=== PATIENT | male | born 1950 | race Caucasian/White ===

== ENCOUNTER 2022-07-28 17:30 | Emergency (ER) | payer OTHER, SELFPAY ==
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
[2022-07-28 17:35] VITALS: BP 156/82; PULSE 70; RESP 18; TEMP 36.6; O2SAT 100
[2022-07-28 19:39] VITALS: BP 163/91; PULSE 68; RESP 18; O2SAT 99
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
== END 2022-07-28 22:17 | disposition home or self-care (01) ==
PROVIDERS: Emergency Provider Emergency Medicine; PCP Family Medicine
DX: S16.1XXA Strain of muscle, fascia and tendon at neck level, initial encounter (principal); E11.9 Type 2 diabetes mellitus without complications; E78.5 Hyperlipidemia, unspecified; V49.40XA Driver injured in collision with unspecified motor vehicles in traffic accident, initial encounter
CPT/HCPCS: 70450; 72125; 72128; 72131; 99284

== ENCOUNTER 2025-02-10 17:39 | Inpatient (IN) | payer OTHER, SELFPAY ==
--- NOTE | ~2025-02-10 | XR_ITS ---
EXAMINATION: XR chest 1V portable DATE: 02/11/2025 01:55 INDICATION: Weakness TECHNIQUE: frontal view of the chest was obtained. COMPARISON: None FINDINGS: Small lung volumes. Small lung volumes. No focal airspace opacities, pulmonary edema, pleural effusio n or pneumothorax. Opacities projecting over the chest are related to a reported following brace for reported spinal fractures. Heart size is normal. IMPRESSION: 1. Small lung volumes. Reviewed, dictated and finalized at location A. IMPRESSION: 1. Small lung volumes.
--- OUTSIDE RECORDS SUMMARY | 2025-02-10 17:43 | XMS_ITS | Referral Summary ---
Author Organization [facility] [address] [facility] Address [address] [place] [address] Care Team Providers Care Cover Inspector Name Role Phone Braulio Child MD Primary Care Provider [phone] Alvina Palencia MA Unavailable Encounters Date Type Department Care Team Description 02/07/2025 [facility] Outreach [address] [address] Alvina Palencia MA 02/07/2025 [facility] IP Outreach [address] [address] Alvina Palencia MA 01/26/[address] [address] Mayra Hoyt Unsuccessful Phone Call 1 (Essence dm eye ) 01/17/2025 ACO Quality [address] [address] Renee Mclain 11/30/2024 Telephone [facility] Primary Care at [address] [address] Braulio Child MD from Last 3 Months Allergies No known active allergies Medications glipiZIDE (GLUCOTROL) 5 mg tabletIndication s:type 2 diabetes mellitus TAKE 1 TABLET (5 MG TOTAL) BY MOUTH 2 (TWO) TIMES A DAY BEFORE BREAKFAST AND LUNCH 180 tablet 1 2 Active Additional Information Patient not taking.Reported on 09/27/2024 amLODIPine (NORVASC) 5 mg tablet TAKE 1 TABLET (5 MG TOTAL) BY MOUTH DAILY. 90 tablet 1 2 Active Additional Information Patient not taking.Reported on 09/27/2024 blood-glucose meter (Contour Next EZ Meter) [facility] [place] BLOOD GLUCOSE 3 (THREE) TIMES A DAY. DX: E11.40 INSULIN DEPENDENT CONTOUR NEXT EZ 50 each 11 3 Active Contour Next Test Strips strip USE ONE STRIP IN METER ONCE DAILY DIRECTED 100 strip 1 4 Active metroNIDAZOLE (METROGEL) 0.75 % gel APPLY TWICE DAILY TO ROSACEA 45 g 1 4 Active insulin glargine 100 unit/mL (3 mL) pen for injection Inject 18 Units under the skin nightly 15 mL 1 4 Active simvastatin (ZOCOR) 20 mg tablet Take 1 tablet (20 mg total) by mouth nightly 90 tablet 4 4 09/27/20 25 Active pen needle, diabetic (BD Ultra-Fine Micro Pen Needle) 32 gauge x 1/4 needle USE DIRECTED WITH LANTUS SOLOSTAR PEN, USING ONE DAILY WITH EVENING INJECTION 100 each 1 5 Active metFORMIN (GLUCOPHAGE) 1,000 mg tabletIndication s:Type 2 diabetes mellitus with diabetic neuropathy, without long-term current use of insulin (HCC) TAKE 1 TABLET BY MOUTH TWICE A DAY WITH MEALS 180 tablet 5 Active gabapentin (NEURONTIN) 300 mg capsule TAKE 1 CAPSULE BY MOUTH THREE TIMES A DAY 270 capsule 1 5 Active omeprazole (PriLOSEC) 40 mg capsuleIndicatio ns:Gastroesophag eal reflux disease without esophagitis TAKE 1 CAPSULE BY MOUTH EVERY DAY 90 capsule 1 5 Active acetaminophen (TYLENOL) 325 mg tablet Take 2 tablets (650 mg total) by mouth every 6 (six) hours 5 02/16/20 25 Active lidocaine (LIDODERM) 5 % Place 1 patch on the skin daily 5 Active oxyCODONE (ROXICODONE) 5 mg immediate release tablet Take 1 tablet (5 mg total) by mouth every 6 (six) hours as needed 5 Active senna-docusate (PERICOLACE) 8.6-50 mg Take 1 tablet by mouth daily as needed 5 02/20/20 Active Active Problems Problem Noted Date Diagnosed Date Type 2 diabetes mellitus with hyperlipidemia Assessment & Plan (09/27/2024 10:25 AM MASTER DYER): Resuming statin medication and will follw oresponse. ENcourage healthy food chocies. Prostate cancer screening 09/27/2024 Assessment & Plan (09/27/2024 10:25 AM MASTER DYER): PSA pending. No hematuria, no nocturai. Type 2 diabetes mellitus wit h diabetic neuropathy, without long-term current use of insulin 09/27/2024 Annual physical exam 09/27/2024 Encounter for screening colonoscopy 03/28/2020 Overview (03/28/2020): Added automatically from request for surgery [id number] Chronic midline low back pain without sciatica 0 02/14/2020 Male erectile disorder 01/26/2020 Diabetic polyneuropathy asso ciated with type 2 diabetes mellitus 01/26/2020 Assessment & Plan (09/27/2024 10:24 AM MASTER DYER): NO opne wounds/sores. WIll follow repsonse. Reivewed import of glycmie cocntro cynthia comorbidities. Hyperlipidemia 01/26/2020 Essential hypertension 01/26/2020 Type 2 diabetes mellitus wit h diabetic neuropathy, with long-term current use of insulin 01/26/2020 Assessment & Plan (09/27/2024 10:24 AM MASTER DYER): Uptitration of lantus and will follow response. Reivewd improt of glycemic control. Denies any hypoglycemic episodes. Screening for malignant neoplasm of prostate Gastroesophageal reflux disease without esophagi tis 01/26/2020 Assessment & Plan (09/27/2024 10:24 AM MASTER DYER): Stable on PPI and will montior response. NO dysphagia, no blood int eh stools, no melena. Immunizations Immunization Administration Dates Next Due Influenza, Unspecified 09/27/2024(Deferr ed: Patient Refused),09/28/2023(Deferred: Patient Refused),09/28/2022(Deferred: Patient Refused),12/13/2021(Deferred: Patient Refused),06/28/2021(Deferred: Patient Refused),10/15/2020(Deferred: Patient Refused),06/28/2020(Deferred: Patient Refused),06/28/2020(Deferred: Patient Refused),09/28/2019(Deferred: Patient Refused),06/28/2019(Deferred: Patient Refused),06/28/2018(Deferred: Patient Refused) Pneumococcal Conjugate PCV 13 12/19/2020 Tdap 12/19/2020 Social History Tobacco Use Types Packs/Day Years Used Date Smoking Tobacco: Never Smokeless Tobacco: Never Tobacco Cessation:Counseling Given: No PHQ-2 Answer Date Recorded PHQ-2 Total Score (If total score is 3 or more points, staff should administer the PHQ-9) 0 09/27/2024 Sex and Gender Information Value Date Recorded Sex Assigned at Not on file Legal Sex Male 8:00 PM MASTER DYER Gender Identity Not on file Sexual Orientation Not on file Last Filed Vital Signs Vital Sign Reading Time Taken Comments Blood Pressure 132/74 09/27/2024 10:04 AM MASTER DYER Pulse 78 09/27/2024 10:04 AM MASTER DYER Temperature 36.8 C (98.2 F) 09/27/2024 10:04 AM MASTER DYER Respiratory Rate 17 03/24/2022 8:38 AM CDT Oxygen Saturation 98% 09/27/2024 10:04 AM MASTER DYER Inhaled Oxygen Concentration - - Weight 72.3 kg (159 lb 4.8 oz) 09/27/2024 10:04 AM MASTER DYER Height 182.9 cm (6') 09/27/2024 10:04 AM MASTER DYER Body Mass Index 21.6 09/27/2024 10:04 AM MASTER DYER Plan of Treatment Not on file Procedures Procedure Name Priority Date/Time Associated Diagnosis Comments EGFR Routine 09/27/2024 1:38 PM MASTER DYER Type 2 diabetes mellitus with diabetic neuropathy, without long-term current use of insulin (HCC) HEMOGLOBIN A1C Routine 09/27/2024 1:38 PM MASTER DYER Type 2 diabetes mellitus with diabetic neuropathy, without long-term current use of insulin (HCC) LIPID PANEL Routine 09/27/2024 1:38 PM MASTER DYER Type 2 diabetes mellitus with diabetic neuropathy, without long-term current use of insulin (HCC) ALBUMIN CREATININE RATIO, URINE Routine 09/27/2024 1:38 PM MASTER DYER Type 2 diabetes mellitus with diabetic neuropathy, without long-term current use of insulin (HCC) DIABETIC EYE EXAM Routine 09/05/2024 11: 34 AM MASTER DYER from Last 3 Months or Most Recently Relevant to Health Maintenance Results * (ABNORMAL) eGFR (09/27/2024 1:38 PM MASTER DYER) eGFR 55(L) >=60 mL/min/1. 73 m2 Comment: Interpretive Data Reference Interval Normal >/= 90 mL/min/1.73m2 Mildly decreased* 60 - 89 mL/min/1.73m2 Mildly to moderately decreased 45 - 59 mL/min/1.73m2 Moderately to severely decreased 30 - 44 mL/min/1.73m2 Severely decreased 15 - 29 mL/min/1.73m2 Kidney Failure < 15 mL/min/1.73m2 *Relative to young adult level Estimated glomerular filtration rate is determined by the 2020 CKD-EPI equation recommended by the National Kidney Foundation (A Unifying Approach to GFR Estimation: Recommendations of the NKF-ASK Task Force on Reassessing the Inclusion of Race in Diagnosing Kidney Disease, JASN 202). The CKD-EPI equation should not be used for patients with unstable renal function and has not been validated in children and those over 70. Current interpretive data was last reviewed 2021. Blood 09/27/2024 1:38 PM MASTER DYER 09/27/2024 7:16 PM MASTER DYER us Braulio Child MD LAB BLOOD ORDERABLES Elaina gong Result [facility] [address] Department [place] [address] * (ABNORMAL) Albumin Creatinine Ratio, Urine (09/27/2024 1:38 PM MASTER DYER) Albumin Ur 268.3 mg/L Comment: Interpretive Data No reference range established. Current interpretive data was last revised 2019. Creatinine Ur 127.2 mg/dL [facility] Comment: Interpretive Data No reference range established. Current interpretive data was last revised 2019. Albumin Creatinine Ratio, Ur 211(H) 1 - 29 mg/g [facility] Urine 09/27/2024 1:38 PM MASTER DYER 09/27/2024 7:13 PM MASTER DYER us Braulio Child MD LAB URINE ORDERABLES Elaina gong Result [facility] [address] Department [place] [address] * (ABNORMAL) Lipid panel (09/27/2024 1:38 PM MASTER DYER) Cholesterol 315(H) 30 - 199 mg/dL Comment: Interpretive Data Ages < or = 19 years Acceptable: <170 mg/dL Borderline high: 170-199 mg/dL High: >or= 200 mg/dL Ages > or = 20 years Desirable: <200 mg/dL Borderline high: 200-239 mg/dL High: >or= 240 mg/dL Literature References: 1. Expert Panel on Integrated Guidelines for Cardiovascular Health and Risk Reduction in Children and Adolescents. Pediatrics 2011;128:S213 2. NCEP Expert Panel. Circulation 2004;110:227 Current Interpretive Data was last revised on 2018. Triglycerides 305(H) <=149 mg/dL [facility] Comment: Interpretive Data Ages < or = 9 years Acceptable: <75 mg/dL Borderline high: 75-99 mg/dL High: >or= 100 mg/dL Ages 10 to 20 years Acceptable: <90 mg/dL Borderline high: 90-129 mg/dL High: >or= 130 mg/dL Ages > or = 20 years Desirable: <150 mg/dL Borderline high: 150-199 mg/dL High: 200-499 mg/dL Very high: >or= 499 mg/dL Literature References: 1. Expert Panel on Integrated Guidelines for Cardiovascular Health and Risk Reduction in Children and Adolescents. Pediatrics 2011;128:S213 2. NCEP Expert Panel. Circulation 2004;110:227 Current Interpretive Data was last revised on 2018. HDL 48 >=40 mg/dL [facility] Comment: Interpretive Data Ages < or = 19 years Acceptable: >45 mg/dL Borderline low: 40-45 mg/dL Low: <40 mg/dL Ages > or = 20 years Desirable: >or= 60 mg/dL Low: <40 mg/dL Literature References: 1. Expert Panel on Integrated Guidelines for Cardiovascular Health and Risk Reduction in Children and Adolescents. Pediatrics 2011;128:S213 2. NCEP Expert Panel. Circulation 2004;110:227 Current Interpretive Data was last revised on 2018. LDL, calculated 206(H) <=129 mg/dL [facility] Comment: Interpretive Data Ages < or = 19 years Acceptable: <110 mg/dL Borderline high: 110-129 mg/dL High: >or= 130 mg/dL Ages > or = 20 years Optimal: <100 mg/dL Near optimal: 100-129 mg/dL Borderline high: 130-159 mg/dL High: >160 mg/dL Calculated using the Perry LDL-C estimating equation. This equation was implemented on 2024. Prior to this date LDL-C was estimated using the Friedewald equation. Literature References: 1. Expert Panel on Integrated Guidelines for Cardiovascular Health and Risk Reduction in Children and Adolescents. Pediatrics 2011;128:S213 2. NCEP Expert Panel. Circulation 2004;110:227 3. Perry Hoang et al. [facility] Cardiol. 2019January 26;5(5):540-548. doi: 10.1001/[email or web address].2020.0013 Current Interpretive Data was last revised on 2024. Non-HDL Cholesterol 267 mg/dL [facility] Comment: Interpretive Data Ages < or = 19 years Acceptable: <120 mg/dL Borderline high: 120-144 mg/dL High: >145 mg/dL Ages > or = 20 years When triglycerides are >200 mg/dL, Non-HDL cholesterol is a secondary target of therapy with treatment goals that are 30 mg/dL greater than the LDL cholesterol target. Literature References: 1. Expert Panel on Integrated Guidelines for Cardiovascular Health and Risk Reduction in Children and Adolescents. Pediatrics 2011;128:S213 2. NCEP Expert Panel. Circulation 2004;110:227 Current Interpretive Data was last revised on 2018. Chol/HDL ratio 7 [facility] Blood 09/27/2024 1:38 PM MASTER DYER 09/27/2024 7:13 PM MASTER DYER Braulio Child MD LAB BLOOD ORDERABLES [place] [address] [address] Department [place] [address] * (ABNORMAL) Diabetic Eye Exam (09/05/2024 11:34 AM MASTER DYER) us Historical Provider HEALTH MAINTENANCE Final Result from Last 3 Months or Most Recently Relevant to Health Maintenance Insurance [facility] Care Teams Cover Inspector Relationship Specialty Start Date End Date Braulio Child MD [address] [id number] PCP - General Family Medicine 01/26/20 Alvina Palencia MA [address] [place] [address] [address] [place] [address] O Care Document Control Assistant 02/07/25
--- OUTSIDE RECORDS SUMMARY | 2025-02-10 17:43 | XMS_ITS | Clinical Summary ---
Author Organization [facility] [employer] Address [address] [place] [address] Care Team Providers Care Digging Machine Operator Name Role Phone Brad Sanchez MD Primary Care Provider + Source Comments [facility],non-owned Affiliates and Associated Physician Practices is amultiple site organization consisting of ambulatory clinics and hospital sitesin [place], [place], [place] and [place]. This disclosure is being madepursuant to the Care Everywhere program and may not contain all information available regarding this patient. Last updated 18.[facility] Allergies No known active allergies Medications * Be aware that medications may not be up to date on this document. Alwaysverify current medications with the patient. gabapentin (Neurontin) 300 MG capsule Take 1 (one) capsule by mouth 3 times daily 5 Active blood glucose (KEVIN CONTOUR NEXT TEST) test strip Use 1 (one) strip as directed Use 1 strip in meter once daily as directed. 4 Active insulin glargine (Lantus/Semgle e) 100 units/mL pen Inject 18 (eighteen) Units subcutaneously at bedtime 4 Active metFORMIN (Glucophage) 1000 MG tablet Take 1 (one) tablet by mouth 2 times daily with morning and evening meal 5 Active metroNIDAZOLE (Metrogel) 0.75 % gel Apply to affected area 2 times daily For rosacea. 4 Active omeprazole (PriLOSEC) 40 MG capsule Take 1 (one) capsule by mouth once daily 5 Active simvastatin (Zocor) 20 MG tablet Take 1 (one) tablet by mouth at bedtime 4 025 Active acetaminophen (Tylenol) 325 MG tablet Take 2 (two) tablets by mouth every 6 hours for 10 days Maximum allowable Acetaminophen amount = 4 Grams (4000 mg) / 24 hours. 80 tablet 5 025 Active lidocaine (Lidoderm) 5 % patch Apply 1 (one) patch to skin once daily Apply patch to most painful area and remove after 12 hours. May reapply a new patch 12 hours later. 5 Active polyethylene glycol 3350 (Miralax) 17 g packetIndicati ons:Constipati on Take 17 (seventeen) g by mouth once daily as needed for Constipation Reasons: Constipation 10 packet 5 025 Active senna-docusate (Senokot-S) 8.6-50 MG tablet Take 1 (one) tablet by mouth once daily as needed for Constipation 14 tablet 5 025 Active oxyCODONE, immediate release, (Roxicodone) 5 MG tabletIndicati ons:Trauma,Paty sed stable burst fracture of first lumbar vertebra, initial encounter ([facility]) Take 1 (one) tablet by mouth every 6 hours as needed for Pain 42 tablet 5 Active Active Problems Problem Noted Date Diagnosed Date Closed fracture of multiple ribs of right side 0 02/03/2025 Closed fracture of thoracic vertebral body 02/03 Closed fracture of spinous process of thoracic v ertebra 02/03/2025 Compression fracture of fourth lumbar vertebra 0 02/03/2025 Compression fracture of first lumbar vertebra Trauma 02/03/2025 Fall, initial encounter 02/03/2025 Closed stable burst fracture of first lumbar vertebra, initial encounter 02/03/2025 Compression fracture of T12 vertebra, initial en counter 02/03/2025 Acute low back pain without sciatica, unspecified back pain laterality 02/03/2025 Encounters Date Type Department Care Team Description 02/07/2025 Telephone [facility] Health at Home Scheduling [id number] [place] [address] Latisha Yeh, RN Coordination Of Care 02/06/2025 Travel 02/03/2025 4:24 PM CDT - 02/05/2025 4:00 PM CDT Hospital Encounter [facility] 5S ACUTE [address] [place] [address] Jaswinder Alicea MD Tenquist, Jane E, MD Surgery General Discharge Disposition: Home or Self Care 02/03/2025 Travel from Last 3 Months Social History Tobacco Use Types Packs/Day Years Used Date Smoking Tobacco: Never Smokeless Tobacco: Never Tobacco Cessation:Counseling Given: Not Answered Alcohol Use Standard Drinks/Week Comments Not Currently 0 (1 standard drink = 0.6 oz pur e alcohol) AUDIT-C Answer Date Recorded Q1: How often do you have a drink containing alc ohol? Monthly or less 02/04/2025 Q2: How many drinks containi ng alcohol do you have on a typical day when you are drinking? 1 or 2 02/04/2025 Q3: How often do you have si x or more drinks on one occasion? Never 02/04/2025 Overall Financial Resource Strain (CARDIA) Answe r Date Recorded How hard is it for you to pa y for the very basics like food, housing, medical care, and heating? Not hard at all 02/04/2025 [facility] [place] [facility] - Occupational Stress Questionnaire Answer Date Recorded Do you feel stress - tense, restless, nervous, or anxious, or unable to sleep at night because your mind is troubled all the time - these days? Not at all 02/04/2025 Hunger Vital Sign Answer Date Recorded Within the past 12 months, y ou worried that your food would run out before you got the money to buy more. Never true 02/05/20 25 Within the past 12 months, t he food you bought just didn't last and you didn't have money to get more. Never true 02/04/2025 PRAPARE - Transportation Answer Date Re corded In the past 12 months, has l ack of transportation kept you from medical appointments or from getting medications? No 01/26 In the past 12 months, has l ack of transportation kept you from meetings, work, or from getting things needed for daily living? No 02/04/2025 Housing Stability Vital Sign Answer Claude e Recorded In the last 12 months, was t here a time when you were not able to pay the mortgage or rent on time? No 02/04/2025 In the past 12 months, how m any times have you moved where you were living? 0 02/04/2025 At any time in the past 12 m [facility], were you homeless or living in a residential (including now)? No 02/04/2025 Sex and Gender Information Value Date Recorded Sex Assigned at Not on file Legal Sex Male 4:24 PM CDT Gender Identity Not on file Sexual Orientation Not on file Last Filed Vital Signs Vital Sign Reading Time Taken Comments Blood Pressure 146/74 02/05/2025 8:41 AM CDT Pulse 78 02/05/2025 9:32 AM CDT Temperature 36.8 C (98.2 F) 02/05/2025 8:41 AM CDT Respiratory Rate 18 02/05/2025 9:32 AM CDT Oxygen Saturation 96% 02/05/2025 9:32 AM CDT Inhaled Oxygen Concentration - - Weight 74.8 kg (165 lb) 02/04/2025 3:16 AM CDT Height 182.9 cm (6' 0.01 ) 02/04/2025 3:16 AM CD T Body Mass Index 22.37 02/04/2025 3:16 AM CDT Plan of Treatment Upcoming Encounters Date Type Department Care Team (Late st Contact Info) Description 03/24/2025 9:30 AM CDT Office Visit [facility] [address] [place] [address] Maite Olivraes, GENERAL EDUCATION INSTRUCTOR-POWER TOOL REPAIRER [address] [place] [address] Health Maintenance Due Date Last Done Comments COLOGUARD (AGES 45-75) - COL ON CA SCREENING 1950 COLON MONITORING 1950 COLONOSCOPY - COLON CA SCREENING 1950 CT COLONOGRAPHY - COLON CA SCREENING 1950 Colorectal Cancer Screening 1950 FIT - COLON CA SCREENING 1950 FLEX SIG - COLON CA SCREENING 1950 MEDICARE AWV 12 MONTHS 1950 HEPATITIS C SCREENING 03/24/1968 DTAP/TDAP/TD VACCINES (1 - Tdap) 1969 PNEUMOCOCCAL VACCINE 50+ (1 of 2 - PCV) 1969 ZOSTER VACCINE (1 of 2) 2000 Respiratory Syncytial Virus (RSV) Vaccine Pt: or over 60 yrs (1 - Risk 60-74 years 1-dose series) 2010 COVID-19 VACCINE (1 - 2023-2 5 season) 2024 DEPRESSION SCREENING 09/28/2024 INFLUENZA VACCINE (Season Ended) 2025 HEPATITIS B VACCINE Aged Out No longe r eligible based on patient's age to complete this topic HIB VACCINE Aged Out No longer eligi ble based on patient's age to complete this topic HPV VACCINE Aged Out No longer eligi ble based on patient's age to complete this topic MENINGOCOCCAL (Group B) VACC INE SHARED DECISION-MAKING Aged Out No longer eligibl e based on patient's age to complete this topic MENINGOCOCCAL GROUPS A/C/Y/W VACCINE Aged Out No longer eligible b ased on patient's age to complete this topic Procedures Procedure Name Priority Date/Time Associated Diagnosis Comments CARDIAC EKG ORDER 02/06/2025 1:2 4 PM CDT GLUCOSE - POINT OF CARE Routine 02/05/2025 12:52 PM CDT GLUCOSE - POINT OF CARE Routine 02/05/2025 6:07 AM CDT PHOSPHORUS BLOOD Routine 02/05/2025 2:17 AM CDT MAGNESIUM BLOOD Routine 02/05/2025 2:17 AM CDT CBC W AUTO DIFFERENTIAL Routine 02/05/2025 2:17 AM CDT BASIC METABOLIC PANEL (CALCIUM TOTAL) Routine 02/05/2025 2:17 AM CDT GLUCOSE - POINT OF CARE Routine 02/05/2025 12:25 AM CDT GLUCOSE - POINT OF CARE Routine 02/04/2025 5:28 PM CDT GLUCOSE - POINT OF CARE Routine 02/04/2025 11:48 AM CDT EKG 12-LEAD Routine 02/04/2025 10:25 AM CDT Hyperkalemia BASIC METABOLIC PANEL (CALCIUM TOTAL) Timed 02/04/2025 6:20 AM CDT GLUCOSE - POINT OF CARE Routine 02/04/2025 6:16 AM CDT XR CHEST 1VW PORTABLE STAT 02/04/2025 6:09 AM CDT Closed stable burst fracture of first lumbar vertebra, initial encounter (HCC) GLUCOSE - POINT OF CARE Routine 02/04/2025 3:59 AM CDT GLUCOSE - POINT OF CARE Routine 02/04/2025 2:57 AM CDT GLUCOSE - POINT OF CARE Routine 02/04/2025 1:37 AM CDT HEMOGLOBIN A1C Routine 02/03/2025 11:42 PM CDT PHOSPHORUS BLOOD Routine 02/03/2025 11:4 2 PM CDT MAGNESIUM BLOOD Routine 02/03/2025 11:42 PM CDT CBC W AUTO DIFFERENTIAL Routine 02/03/2025 11:42 PM CDT BASIC METABOLIC PANEL (CALCIUM TOTAL) Routine 02/03/2025 11:42 PM CDT GLUCOSE - POINT OF CARE Routine 02/03/2025 11:28 PM CDT XR THORACOLUMBAR SPINE 2VW STAT 02/03/2025 10:07 PM CDT Compression fracture of T12 vertebra, initial encounter (HCC) URINALYSIS W/MICROSCOPIC NO CULTURE STAT 02/03/2025 6:40 PM CDT URINE DRUG SCREEN IMMUNOASSAY STAT 02/03/2025 6:40 PM CDT EKG 12-LEAD Routine 02/03/2025 6:37 PM CDT Fall, initial encounter CT LUMBAR SPINE WO CONTRAST STAT 02/03/2025 4:[address] THORACIC SPINE WO CONTRAST STAT 02/03/2025 4:[address] CHEST ABDOMEN PELVIS W CONT STAT 02/03/2025 4:[address] CERVICAL SPINE WO CONTRAST STAT 02/03/2025 4:[address] HEAD WO CONTRAST STAT 02/03/2025 4 :53 PM CDT Trauma XR PELVIS 1 OR 2VW STAT 02/03/2025 4: 49 PM CDT Trauma XR CHEST 1VW PORTABLE STAT 02/03/2025 4:49 PM CDT Trauma PTT [facility] STAT 02/03/2025 4:35 PM CDT PT-INR [facility] STAT 02/03/2025 4:35 PM CDT LIPASE BLOOD STAT 02/03/2025 4:35 PM CDT CBC W AUTO DIFFERENTIAL STAT 02/03/2025 4:35 PM CDT BASIC METABOLIC PANEL (CALCIUM TOTAL) STAT 02/03/2025 4:35 PM CDT AMYLASE BLOOD STAT 02/03/2025 4:35 PM CDT ALCOHOL ETHYL BLOOD STAT 02/03/2025 4 :35 PM CDT from Last 3 Months Results * CARDIAC EKG ORDER (02/06/2025 1:24 PM CDT) Narrative 02/06/2025 1:24 PM CDT Ordered by an unspecified provider. us Scanned Document CARDIAC SERVICES ORDERABLES Fin al Result * (ABNORMAL) GLUCOSE - POINT OF CARE (02/05/2025 12:52 PM CDT) Only the most recent of10 resultswithin the time period is included. [facility] Glucose WB/POC 236(H) 70 - 99 mg/dL 02/05/2025 12:54 PM CDT [facility] Specimen Type Arterial 02/05/2025 12:54 PM CDT [facility] Blood BLOOD SPECIMEN / Unknown 02/05/2025 12:52 PM CDT 02/05/2025 12:54 PM CDT us Ashwini Hooper MD LAB - POINT OF CARE ORDERABLE S Final Result [facility] [address] [place] [address], [facility] [phone] * (ABNORMAL) CBC W AUTO DIFFERENTIAL (02/05/2025 2:17 AM CDT) Only the most recent of3 resultswithin the time period is included. [facility] WBC 13.0(H) 4.0 - 10.7 x10E9/L 02/05/2025 2:49 AM [facility] RBC Count 4.42 4.30 - 5.80 x10E12/L 02/05/2025 2:49 AM [facility] Hemoglobin 12.7(L) 13.3 - 17.5 g/dL 02/05/2025 2:49 AM [facility] Hematocrit 38.1(L) 38.7 - 51.1 % 02/05/2025 2:49 AM [facility] MCV 86.2 80.0 - 98.0 fL 02/05/2025 2:49 AM [facility] MCH 28.7 26.7 - 33.6 pg 02/05/2025 2:49 AM [facility] MCHC 33.3 31.7 - 36.3 g/dL 02/05/2025 2:49 AM [facility] RDW-CV 12.9 11.3 - 14.8 % 02/05/2025 2:49 AM [facility] Platelet Count 118(L) 150 - 420 x10E9/L 02/05/2025 2:49 AM [facility] MPV 10.6 7.8 - 11.4 fL 02/05/2025 2:49 AM [facility] Neutrophil % 75.6(H) 41.0 - 74.0 % 02/05/2025 2:49 AM [facility] Lymphocyte % 14.7(L) 17.0 - 47.0 % 02/05/2025 2:49 AM [facility] Monocyte % 8.3 3.0 - 11.0 % 02/05/2025 2:49 AM [facility] Eosinophil % 0.4 0.0 - 7.0 % 02/05/2025 2:49 AM [facility] Basophil % 0.5 0.0 - 1.6 % 02/05/2025 2:49 AM [facility] Immature Granulocytes % 0.5 0.0 - 1.0 % 02/05/2025 2:49 AM [facility] Neutrophil Absolute 9.78(H) 1.60 - 7.50 x10E9/L 02/05/2025 2:49 AM [facility] Lymphocyte Absolute 1.91 1.00 - 4.40 x10E9/L 02/05/2025 2:49 AM [facility] Monocyte Absolute 1.08(H) 0.15 - 1.00 x10E9/L 02/05/2025 2:49 AM [facility] Eosinophil Absolute 0.05 0.00 - 0.60 x10E9/L 02/05/2025 2:49 AM [facility] Basophil Absolute 0.07 0.00 - 0.13 x10E9/L 02/05/2025 2:49 AM [facility] Blood BLOOD SPECIMEN / Unknown Lab Venipuncture / Unknown 02/05/2025 2:17 AM CDT 02/05/2025 2:40 AM CDT us Jaswinder Alicea MD LAB - HEMATOLOGY ORDERABLES Final Result [facility] [address] [place] [address], [facility] [phone] * (ABNORMAL) BASIC METABOLIC PANEL (CALCIUM TOTAL) (02/05/2025 2:17 AM CDT) Only the most recent of4 resultswithin the time period is included. BUN 31(H) 7 - 26 mg/dL 02/05/2025 3:04 AM [facility] Creatinine 1.32(H) 0.71 - 1.16 mg/dL 02/05/2025 3:04 AM [facility] Sodium 138 136 - 145 mmol/L 02/05/2025 3:04 AM [facility] Potassium 4.2 3.5 - 4.5 mmol/L 02/05/2025 3:04 AM [facility] Chloride 108(H) 98 - 107 mmol/L 02/05/2025 3:04 AM [facility] CO2 18(L) 22 - 29 mmol/L 02/05/2025 3:04 AM [facility] Glucose 212(H) 70 - 99 mg/dL 02/05/2025 3:04 AM [facility] Calcium 8.3(L) 8.4 - 10.2 mg/dL 02/05/2025 3:04 AM [facility] Anion Gap 12 6 - 16 02/05/2025 3:04 AM [facility] BUN/Creatinine Ratio 23 7 - 23 02/05/2025 3:04 AM [facility] Osmolality Calculated 299(H) 275 - 295 mOsm/kg 02/05/2025 3:04 AM [facility] eGFR by CKD-EPI 57(L) >=90 mL/min/1.7 3 m2 02/05/2025 3:04 AM [facility] Blood BLOOD SPECIMEN / Unknown Lab Venipuncture / Unknown 02/05/2025 2:17 AM CDT 02/05/2025 2:40 AM CDT us Jaswinder Alicea MD LAB - CHEMISTRY ORDERABLES F inal Result Performing Organization Address City/[facility]/ZIP Co de Phone Number [address] [address], [place] [phone] * PHOSPHORUS BLOOD (02/05/2025 2:17 AM CDT) Only the most recent of2 resultswithin the time period is included. Phosphorus 2.8 2.8 - 5.1 mg/dL 02/05/2025 3:04 AM CDT [facility] Blood BLOOD SPECIMEN / Unknown Lab Venipuncture / Unknown 02/05/2025 2:17 AM CDT 02/05/2025 2:40 AM CDT us Jaswinder Alicea MD LAB - CHEMISTRY ORDERABLES F inal Result Performing Organization Address [facility] Co de Phone Number [address] [address], [place] [phone] * MAGNESIUM BLOOD (02/05/2025 2:17 AM CDT) Only the most recent of2 resultswithin the time period is included. Magnesium 1.9 1.6 - 2.6 mg/dL 02/05/2025 3:04 AM CDT [facility] Blood BLOOD SPECIMEN / Unknown Lab Venipuncture / Unknown 02/05/2025 2:17 AM CDT 02/05/2025 2:40 AM CDT us Jaswinder Alicea MD LAB - CHEMISTRY ORDERABLES F inal Result Performing Organization Address City/[facility]/ZIP Co de Phone Number [address] [address], [place] [phone] * EKG 12-LEAD (02/04/2025 10:25 AM CDT) Only the most recent of2 resultswithin the time period is included. Ventricular Rate 73 BPM [facility] Atrial Rate 73 BPM [facility] P-R Interval 174 ms [facility] QRS Duration ms 98 ms [facility] Q-T Interval ms 382 ms [facility] QTC Calculation (Bezet) 420 ms [facility] Calculated P Tow 21 degrees [facility] Calculated R Tow -71 degrees [facility] Calculated T Tow 36 degrees [facility] Interpretation EKG NORMAL SINUS RHYTHM LEFT AXIS DEVIATION PULMONARY DISEASE PATTERN NONSPECIFIC T WAVE ABNORMALITY ABNORMAL ECG WHEN COMPARED WITH ECG OF 03-FEB-2025 18:37, NO SIGNIFICANT CHANGE WAS FOUND Confirmed by MISHA SNIDER, JANEEN ([id number]) on 02/05/2025 2:11:12 PM [facility] M[facility] 02/04/2025 10:2 5 AM CDT 02/05/2025 2:11 PM CDT us Ashwini Hooper MD ECG ORDERABLES Final Result [facility] * XR Chest 1Vw Portable (02/04/2025 6:09 AM CDT) Only the most recent of2 resultswithin the time period is included. Anatomical Region Laterality Modality Chest Digital Radiogra phy 02/04/2025 1:45 PM CDT Narrative 02/05/2025 4:31 AM CDT PROCEDURE: XR CHEST 1VW PORTABLE, DATE/TIME OF EXAM: 02/04/2025 6:09 AM, LOCATION [facility] INDICATION: S32.011A: Closed stable burst fracture of first lumbar vertebra, initial encounter ([facility]) ADDITIONAL CLINICAL INFORMATION: Ordering Provider Reason For Exam: rib fractures COMPARISON: CT chest abdomen pelvis and chest radiograph from 02/03/2025. FINDINGS/IMPRESSION: Bibasilar mild atelectasis. There is no pleural effusion or pneumothorax. The cardiomediastinal silhouette is normal. The visible bony thorax is intact. Bilateral rib fractures which better seen and evaluated on the prior CT chest abdomen pelvis from 02/03/2025. Metallic hardware is superimposing to the left chest wall. Cervical collar is in place. The report was drafted by Manasa Shoemaker MD (residential collections) 02/04/2025 1:46 PM. Kanu Kirk MD have personally reviewed and interpreted this examination/study. > Interpreting Provider: Kanu Dennison MD on 02/05/2025 4:31 AM Procedure Note Kanu Dennison MD - 02/05/2025 PROCEDURE: XR CHEST 1VW PORTABLE, DATE/TIME OF EXAM: 02/04/2025 6:09AM, LOCATION [facility] INDICATION: S32.011A: Closed stable burst fracture of first lumbar vertebra, initial encounter ([facility]) ADDITIONAL CLINICAL INFORMATION: Ordering Provider Reason For Exam: rib fractures COMPARISON: CT chest abdomen pelvis and chest radiograph from 02/03/2025. FINDINGS/IMPRESSION: Bibasilar mild atelectasis. There is no pleural effusion or pneumothorax. The cardiomediastinal silhouette is normal. The visible bony thorax is intact. Bilateral rib fractures which better seen and evaluated on the prior CT chest abdomen pelvis from 02/03/2025. Metallic hardware is superimposing to the left chest wall. Cervical collar is in place. The report was drafted by Manasa Shoemaker MD (residential collections) 02/04/2025 1:46 PM. Kanu Kirk MD have personally reviewed and interpreted this examination/study. > Interpreting Provider: Kanu Dennison MD on 02/05/2025 4:31 AM Ashwini Hooper MD DIAGNOSTIC IMAGING ORDERABLES Final Result * (ABNORMAL) HEMOGLOBIN A1C (02/03/2025 11:42 PM CDT) Hemoglobin A1c 12.5(H) <=5.6 % 02/05/2025 7:46 AM CDT [facility] Estimated Average Glucose 312 mg/dL 02/05/2025 7:46 AM CDT [facility] Comment: HbA1c Interpretation: Normal : < 5.7% Pre-diabetes: 5.7-6.4% Diabetes: Equal to or greater than 6.5% Test results diagnostic of diabetes should be repeated for confirmation. Treatment target values recommended by ADA and other clinical organizations should be used to evaluate metabolic control in patients. Reference: [place] [employer], Standards of Care in Diabetes -2020 In patients 70 years and older consider HbA1c target range of 7.0-7.5% (Reference: Pawan Blas et al. [place]. 2012) The [place] assay for the measurement of HbA1c is a National Glycohemoglobin Standardization Program (NGSP) certified method. Blood BLOOD SPECIMEN / Unknown Venipuncture / Unknown 02/03/2025 11:42 PM CDT 02/04/2025 2:51 PM CDT us Jaswinder Alicea MD LAB - CHEMISTRY ORDERABLES F inal Result [address] [address], [facility] [phone] * XR Thoracolumbar Spine 2Vw (02/03/2025 10:07 PM CDT) Anatomical Region Laterality Modality Spine Digital Radiogra phy 02/04/2025 2:09 PM CDT Narrative 02/05/2025 3:29 AM CDT PROCEDURE: XR THORACOLUMBAR SPINE 2VW, DATE/TIME OF EXAM: 02/03/2025 10:07 PM, LOCATION [facility] INDICATION: S22.080A: Compression fracture of T12 vertebra, initial encounter ([facility]) ADDITIONAL CLINICAL INFORMATION: Ordering Provider Reason For Exam: lumbar fracture COMPARISON: CT spine from 02/03/2025. FINDINGS/IMPRESSION: Interval placement of thoracic, lumbar and sacral brace with good alignment. Redemonstration of following fractures which is better seen and evaluated on the prior CT spine from 02/03/2025: *Acute burst fracture of the L1 vertebral body with approximately 50% height loss *Acute superior endplate compression/burst-type fracture of the T12 vertebral body with less than 40% height loss and retropulsion. *Mildly displaced fracture of the superior endplate of L4 Degenerative changes within the intervertebral disc spaces and facet joints. Bone density and texture are normal. The report was drafted by Maansa Shoemaker MD (residential collections 02/04/2025 2:13 PM. Kanu Kirk MD have personally reviewed and interpreted this examination/study. > Interpreting Provider: Kanu Dennison MD on 02/05/2025 3:29 AM Procedure Note Kanu Dennison MD - 02/05/2025 PROCEDURE: XR THORACOLUMBAR SPINE 2VW, DATE/TIME OF EXAM: 510:07 PM, LOCATION [facility] INDICATION: S22.080A: Compression fracture of T12 vertebra, initial encounter ([facility]) ADDITIONAL CLINICAL INFORMATION: Ordering Provider Reason For Exam: lumbar fracture COMPARISON: CT spine from 02/03/2025. FINDINGS/IMPRESSION: Interval placement of thoracic, lumbar and sacral brace with good alignment. Redemonstration of following fractures which is better seen andevaluated on the prior CT spine from 02/03/2025: *Acute burst fracture of the L1 vertebral body with approximately 50% height loss *Acute superior endplate compression/burst-type fracture of the T12 vertebral body with less than 40% height loss and retropulsion. *Mildly displaced fracture of the superior endplate of L4 Degenerative changes within the intervertebral disc spaces and facet joints. Bone density and texture are normal. The report was drafted by Manasa Shoemaker MD (residential collections 02/04/2025 2:13 PM. Kanu Kirk MD have personally reviewed and interpreted this examination/study. > Interpreting Provider: Kanu Dennison MD on 02/05/2025 3:29 AM Jaswinder Alicea MD DIAGNOSTIC IMAGING ORDERABLE S Final Result * (ABNORMAL) URINALYSIS W/MICROSCOPIC NO CULTURE (02/03/2025 6:40 PM CDT) Color UA Yellow Yellow, Straw 02/03/2025 7:23 PM CDT [facility] Clarity UA Clear Clear 02/03/2025 7:23 PM CDT [facility] Glucose UA 4+(A) Normal 02/03/2025 7:23 PM CDT [facility] Bilirubin UA Negative Negative 02/03/2025 7:23 PM CDT [facility] Ketone UA Negative Negative 02/03/2025 7:23 PM [facility] Specific [place] UA 1.032(H) 1.005 - 1.030 02/03/2025 7:23 PM [facility] Blood UA 1+(A) Negative 02/03/2025 7:23 PM [facility] pH UA 6.5 5.0 - 8.0 pH 02/03/2025 7:23 PM [facility] Protein UA 1+(A) Negative 02/03/2025 7:23 PM [facility] Urobilinogen UA Normal Normal mg/dL 025 7:23 PM [facility] Nitrite UA Negative Negative 02/03/2025 7:23 PM [facility] Leukocyte UA Negative Negative 02/03/2025 7:23 PM [facility] RBC UA 0-2 0 - 5 # /hpf 02/03/2025 7:23 PM [facility] WBC UA 0-5 0 - 5 # /hpf 02/03/2025 7:23 PM [facility] Bacteria UA None Seen None Seen 02/03/2025 7:23 PM [facility] Squamous Epithelial Cells None Seen 0 - 5 /hpf 02/03/2025 7:23 PM [facility] Mucus UA 1+ /LPF 02/03/2025 7:23 PM [facility] Urine URINE SPECIMEN OBTAINED BY CLEAN CATCH PROCEDURE / Unknown Collection / Unknown 02/03/2025 6:40 PM CDT 02/03/2025 6:51 PM CDT us Ashwini Hooper MD LAB - URINALYSIS ORDERABLES F inal Result [address] [address], [facility] [phone] * (ABNORMAL) URINE DRUG SCREEN IMMUNOASSAY (02/03/2025 6:40 PM CDT) [facility] Amphetamines Screen Urine Negative Negative : < 1000 ng/mL 02/03/2025 7:17 PM [facility] Barbiturates Screen Urine Negative Negative : < 200 ng/mL 02/03/2025 7:17 PM [facility] Benzodiazepine Screen Urine Negative Negative : < 200 ng/mL 02/03/2025 7:17 PM [facility] Opiates Urine Negative Negative : < 300 ng/mL 02/03/2025 7:17 PM [facility] Cocaine Metabolites Urine Negative Negative : < 300 ng/mL 02/03/2025 7:17 PM [facility] Phencyclidine Screen Urine Negative Negative : < 25 ng/ml 02/03/2025 7:17 PM [facility] Cannabinoids Screen Urine Positive(A) Negative : <50 ng/mL 02/03/2025 7:17 PM [facility] Comment:Positive urine canna binoids (THC) screening results should be confirmed by another generally accepted non-immunological method such as gas chromatography or mass spectrometry. Methadone Screen Urine Negative Negative : < 300 ng/mL 02/03/2025 7:17 PM [facility] Fentanyl Screen Urine Negative Negative : <1.5 ng/mL 02/03/2025 7:17 PM [facility] Urine URINE / Unknown Collection / Unknown 02/03/2025 6:40 PM CDT 02/03/2025 6:51 PM [facility] - 02/03/2025 7:17 PM [facility] The Urine Toxicology Screening Panel does not screen for Propoxyphene, Meprobamate, Carisoprodol, Trazodone, rcgu-zxf-nflpitk medications and/or volatiles (Acetone, Isopropanol, Methanol or Ethylene Glycol). Ethanol, Salicylate, Acetaminophen, Tricyclic Antidepressants and several therapeutic drugs may be individually assayed in serum or plasma specimen. Toxicology testing by the [facility] is an aid to medical diagnosis and treatment of patients. No documented chain of custody was maintained. Results are intended to be used for clinical purposes only. us Ashwini Hooper MD LAB - URINE CHEMISTRY ORDERAB LES Final Result [facility] [address] [place] [address], [facility] [phone] * CT CHEST ABDOMEN PELVIS W CONT - Abdomen-pelvis trauma, blunt or penetrating (02/03/2025 4:53 PM CDT) Anatomical Region Laterality Modality Chest, Abdomen, Pelvis Computed Tomography 02/03/2025 4:49 PM CDT Impressions 02/04/2025 12:30 AM CDT Impression: 1.Mildly displaced fractures of the right fourth through seventh ribs. 2.Age-indeterminate fracture of the left first rib. 3.Compression fracture of the L1 vertebral body with retropulsion and extension of fracture line to the left lamina and pedicle at this level. 4.Compression fracture of the T2 vertebral body with another nondisplaced fracture of the T12 spinous process. 5.Subtle compression fracture of the L4 superior endplate. Please refer to dedicated CT spine for detailed evaluation of the spine. > Dictated by Jone Amato MD, (vice president tax). I, Reed Durán MD have personally reviewed and interpreted this examination/study. > Interpreting Provider: Reed Durán MD on 02/04/2025 12:30 AM Narrative 02/04/2025 12:30 AM CDT PROCEDURE: CT CHEST ABDOMEN PELVIS W CONT, DATE/TIME OF EXAM: 02/03/2025 4:54 PM, LOCATION [facility] INDICATION: Trauma COMPARISON: None. TECHNIQUE: CT of the chest, abdomen, and pelvis was performed after the uneventful administration of 100 mL of Isovue 370 intravenous contrast according to standard protocol. Findings: Chest: Lower Neck and Axillae: Normal. Lungs: No pulmonary parenchymal or airway process is present. No suspicious pulmonary nodules are identified. No pleural fluid or pneumothorax is present. Heart and Pericardium: The cardiac chambers are normal in size. No pericardial fluid or thickening is present. Mediastinum and Anu: No mediastinal hemorrhage is present. No enlarged lymph nodes are present. Thoracic Vasculature: No vascular abnormality is present. Abdomen/pelvis: Liver: Normal. Gallbladder and Bile Ducts: Multiple gallstones are seen. No wall thickening or pericholecystic fluid. Spleen: Normal. Pancreas: Normal. Adrenals: Normal. Kidneys: Normal. Gastrointestinal: There is a small hiatal hernia. Stomach otherwise normal. Small and colonic bowel loops are normal. No evidence of bowel obstruction. Normal appendix. Mesentery/Peritoneum/Retroperitoneum: No free intraperitoneal air. No free fluid in the abdomen or pelvis. Bladder: Normal. Reproductive Organs: Prostate is enlarged measuring 5.4 cm Abdominal Vasculature: Atherosclerotic calcification of the aorta and its branch vessels. Bones: Bone windows demonstrate no suspicious lytic or blastic lesions. Lucency through the left first lateral rib (series 3 image 24). Mild displaced fractures of the right fourth through seventh ribs. There is a superior endplate compression fractures of the T12 vertebral body with approximately 25% height loss. There is also a nondisplaced fracture of the T12 spinous process. Acute burst fracture of the L1 vertebral bodies approximately 50% height loss with retropulsion with extension of fracture line posteriorly in the into the left lamina and pedicle at this level. Subtle superior endplate compression fracture of L4 vertebral body without significant height loss. Soft tissues: Normal. Procedure Note Reed Durán MD - 02/04/2025 PROCEDURE: CT CHEST ABDOMEN PELVIS W CONT, DATE/TIME OF EXAM: 02/03/2025 4:54 PM, LOCATION [facility] INDICATION: Trauma COMPARISON: None. TECHNIQUE: CT of the chest, abdomen, and pelvis was performed after the uneventful administration of 100 mL of Isovue 370 intravenous contrast according to standard protocol. Findings: Chest: Lower Neck and Axillae: Normal. Lungs: No pulmonary parenchymal or airway process is present. No suspicious pulmonary nodules are identified. No pleural fluid or pneumothorax is present. Heart and Pericardium: The cardiac chambers are normal in size. No pericardial fluid orthickening is present. Mediastinum and Anu: No mediastinal hemorrhage is present. No enlarged lymph nodes arepresent. Thoracic Vasculature: No vascular abnormality is present. Abdomen/pelvis: Liver: Normal. Gallbladder and Bile Ducts: Multiple gallstones are seen. No wall thickening or pericholecystic fluid. Spleen: Normal. Pancreas: Normal. Adrenals: Normal. Kidneys: Normal. Gastrointestinal: There is a small hiatal hernia. Stomach otherwise normal. Small andcolonic bowel loops are normal. No evidence of bowel obstruction. Normalappendix. Mesentery/Peritoneum/Retroperitoneum: No free intraperitoneal air. No free fluid in the abdomen or pelvis. Bladder: Normal. Reproductive Organs: Prostate is enlarged measuring 5.4 cm Abdominal Vasculature: Atherosclerotic calcification of the aorta and its branch vessels. Bones: Bone windows demonstrate no suspicious lytic or blastic lesions. Lucency through the left first lateral rib (series 3 image 24). Mild displaced fractures of the right fourth through seventh ribs. There is a superior endplate compression fractures of the T12 vertebral body withapproximately 25% height loss. There is also a nondisplaced fracture of the [id number] process. Acute burst fracture of the L1 vertebral bodies [id number]% height loss with retropulsion with extension of fracture lineposteriorly in the into the left lamina and pedicle at this level. Subtle superior endplate compression fracture of L4 vertebral body without significant height loss. Soft tissues: Normal. Impression: 1.Mildly displaced fractures of the right fourth through seventh ribs. 2.Age-indeterminate fracture of the left first rib. 3.Compression fracture of the L1 vertebral body with retropulsion and extension of fracture line to the left lamina and pedicle at this level. 4.Compression fracture of the T2 vertebral body with anothernondisplaced fracture of the T12 spinous process. 5.Subtle compression fracture of the L4 superior endplate. Please referto dedicated CT spine for detailed evaluation of the spine. > Dictated by Jone Amato MD, (vice president tax). I, Reed Durán MD have personally reviewed and interpreted this examination/study. > Interpreting Provider: Reed Durán MD on 02/04/2025 12:30 AM Ashwini Hooper MD CT ORDERABLES Final Result * CT LUMBAR SPINE WO CONTRAST - T/L-spine trauma, Spine fracture (02/03/2025 4:53 PM CDT) Anatomical Region Laterality Modality Spine Computed Tomogra phy 02/03/2025 4:52 PM CDT Impressions 02/03/2025 8:15 PM CDT IMPRESSION: 1.No acute intracranial hemorrhage, midline shift, or significant mass effect. 2.Acute superior endplate compression/burst-type fracture of the T12 vertebral body with less than 40% height loss. There is minimal retropulsion of the superior fracture fragment of approximately 4 mm, resulting in compression on the ventral aspect of the thecal sac and minimal spinal canal stenosis. 3.Acute, minimally displaced or mildly displaced fracture of the right T2 transverse process. Additional suspected fractures as outlined above. 4.Acute burst, comminuted fracture of the L1 vertebral body with approximately 50% height loss and there are approximately 7 mm retropulsion resulting in moderate to severe spinal canal stenosis, worst on the right side. Fracture involves the posterior endplate as well as nondisplaced fractures of the left pedicle and lamina with bony retropulsion of fracture fragments into the spinal canal, as outlined above. 5.Bilateral L1 and L2 transverse process fractures. 6.Mildly displaced fracture of the superior endplate of L4. Additional occult or nondisplaced fractures cannot be totally excluded. 7.No acute fractures visualized in the cervical spine. 8.Cholelithiasis. 9.Please refer to the concurrent, dedicated body report for findings in the chest, abdomen, and pelvis. These findings were discussed in detail with the patient's care provider, Dr. Denise by Dr. Cameron via telephone at 5:18 PM on 02/03/2025 with readback comprehension and verification. > Dictated by Calos Cameron MD, (vice president tax).0 I, Nicole Matthews MD have personally reviewed and interpreted this examination/study. > Interpreting Provider: Nicole Matthews MD on 02/03/2025 8:15 PM Narrative 02/03/2025 8:15 PM CDT PROCEDURE: CT HEAD WO CONTRAST, CT CERVICAL SPINE WO CONTRAST, CT THORACIC SPINE WO CONTRAST, CT LUMBAR SPINE WO CONTRAST, DATE/TIME OF EXAM: 02/03/2025 4:54 PM, LOCATION [facility] INDICATION: Trauma EXAMINATION: 1.Computed tomography (CT) of the head without contrast 2.CT of the cervical spine without contrast 3.CT of the thoracic spine without contrast 4.CT of the lumbar spine without contrast ADDITIONAL CLINICAL INFORMATION: Ordering Provider Reason For Exam: Fall from scaffolding Technologist Note: None. Additional: None TECHNIQUE: CT of the head and cervical spine was performed without contrast according to standard protocol. Reformatted axial, sagittal, and coronal images of the thoracic and lumbar spine were obtained by the technologist from a concurrently performed body CT and sent to the workstation for review. CT dose reduction technique was used, including Automated Exposure Control. COMPARISON: No prior study is available for comparison at the time of this dictation. FINDINGS: Head: No acute intra- or extra-axial fluid collections are identified. There is mild cerebral volume loss with associated ex vacuo ventricular dilatation. The basilar cisterns are patent. No mass effect or midline shift is seen. The alejo-white matter differentiation is normal. Periventricular white matter hypoattenuation is indicative of chronic small vessel ischemic disease. There is vascular calcification of the carotid siphons. No acute calvarial fracture is identified.. Other than bilateral cataract extractions, the orbits appear normal. There is mild paranasal sinus disease. The mastoid air cells are clear. No soft tissue abnormality is identified. Cervical spine: There is mild anterolisthesis of C6 on C7. Trace retrolisthesis of C3 on C4. Mild retrolisthesis of C5 on C6. The alignment is otherwise maintained. The prevertebral soft tissue is normal in thickness. The bones are moderately osteopenic. Acute comminuted fracture of the left first rib. Vertebral bodies are normal in height without evidence of acute fracture. Other than middle atlantoaxial joint osteoarthritis, the craniocervical junction appears normal. There is mild to moderate multilevel degenerative disc disease. Multilevel moderate or moderate to severe spinal canal stenosis, worst at C3-C4. There are varying degrees of mild facet osteoarthritis. There are varying degrees of moderate to severe multilevel uncovertebral joint osteoarthritis with the same degree of neural foraminal stenosis at these levels. No soft tissue abnormality is identified. Scattered small cervical lymph nodes are nonspecific. Thoracic spine: The alignment is normal mild exaggeration of the thoracic kyphosis. Minimal anterolisthesis of T3 on T4. The alignment is otherwise maintained. Chronic deformity of the central inferior endplate of T1 vertebral body. Acute, minimally displaced or mildly displaced fracture of the right T2 transverse process. Acute superior endplate compression/burst-type fracture of the T12 vertebral body with less than 40% height loss. There is minimal retropulsion of the superior fracture fragment of approximately 4 mm, resulting in compression on the ventral aspect of the thecal sac and minimal spinal canal stenosis. Additional nondisplaced fracture of the T12 spinous process. Additional compression deformities or bone contusions of the T5-T10 vertebral bodies cannot be totally excluded There is advanced degenerative disc disease. Otherwise, no high-grade central canal stenosis is seen. There is mild facet osteoarthritis at multiple levels. There are varying degrees of neural foraminal stenosis at multiple levels. There is subsegmental atelectasis in the dependent portions of the lung bases. There is a mild to moderate hiatal hernia. Multiple additional right-sided rib fractures are better assessed on the concurrent body CT. There is cholelithiasis. Lumbar spine: The alignment is normal. Acute burst, comminuted fracture of the L1 vertebral body with approximately 50% height loss and there are approximately 7 mm retropulsion resulting in moderate to severe spinal canal stenosis, worst on the right side. Fracture involves the posterior endplate as well as nondisplaced fractures of the left pedicle and lamina with bony retropulsion of fracture fragments into the spinal canal, as outlined above. Mildly displaced bilateral L1 transverse process fractures are noted. Minimally displaced right and suspected minimally displaced left transverse fractures of the L2 vertebral body. Additional mild superior endplate compression fracture of the L4 with loss of less than 15% of the vertebral body height. No significant retropulsion. Subtle compression deformity of the superior endplate of L2 vertebral body is suspected for minimal superior endplate compression fracture. Additional occult fractures cannot be totally excluded. There is advanced degenerative disc disease. Additional moderate multilevel or moderate to severe spinal canal stenosis is noted, due to degenerative disc disease, worse at L4-L5, with overall moderate to severe spinal canal stenosis due to diffuse disc bulge, hypertrophy of the ligamentum flavum, and facet hypertrophy. There is advanced facet osteoarthritis at multiple levels. There are varying degrees of neural foraminal stenosis at multiple levels. There is atherosclerotic calcification of the abdominal aorta and its branch vessels. Procedure Note Nicole Matthews MD - 02/03/2025 PROCEDURE: CT HEAD WO CONTRAST, CT CERVICAL SPINE WO CONTRAST, CTTHORACIC SPINE WO CONTRAST, CT LUMBAR SPINE WO CONTRAST, DATE/TIME OF EXAM: 02/03/2025 4:54 PM, LOCATION [facility] INDICATION: Trauma EXAMINATION: 1.Computed tomography (CT) of the head without contrast 2.CT of the cervical spine without contrast 3.CT of the thoracic spine without contrast 4.CT of the lumbar spine without contrast ADDITIONAL CLINICAL INFORMATION: Ordering Provider Reason For Exam: Fall from scaffolding Technologist Note: None. Additional: None TECHNIQUE: CT of the head and cervical spine was performed withoutcontrast according to standard protocol. Reformatted axial, sagittal, and coronal images of the thoracic and lumbar spine were obtained by thetechnologist from a concurrently performed body CT and sent to the workstation for review. CT dose reduction technique was used, including AutomatedExposure Control. COMPARISON: No prior study is available for comparison at the time ofthis dictation. FINDINGS: Head: No acute intra- or extra-axial fluid collections are identified. Thereis mild cerebral volume loss with associated ex vacuo ventriculardilatation. The basilar cisterns are patent. No mass effect or midline shift isseen. The alejo-white matter differentiation is normal. Periventricular white matter hypoattenuation is indicative of chronic small vessel ischemic disease. There is vascular calcification of the carotid siphons. Noacute calvarial fracture is identified.. Other than bilateral cataract extractions, the orbits appear normal. There is mild paranasal sinus disease. The mastoid air cells are clear. No soft tissue abnormality is identified. Cervical spine: There is mild anterolisthesis of C6 on C7. Trace retrolisthesis of C3 on C4. Mild retrolisthesis of C5 on C6. The alignment is otherwisemaintained. The prevertebral soft tissue is normal in thickness. The bones are moderately osteopenic. Acute comminuted fracture of the left first rib. Vertebral bodies are normal in height without evidence of acutefracture. Other than middle atlantoaxial joint osteoarthritis, the craniocervical junction appears normal. There is mild to moderate multileveldegenerative disc disease. Multilevel moderate or moderate to severe spinal canal stenosis, worst at C3-C4. There are varying degrees of mild facet osteoarthritis. There are varying degrees of moderate to severemultilevel uncovertebral joint osteoarthritis with the same degree of neuralforaminal stenosis at these levels. No soft tissue abnormality is identified. Scattered small cervical lymph nodes are nonspecific. Thoracic spine: The alignment is normal mild exaggeration of the thoracic kyphosis.Minimal anterolisthesis of T3 on T4. The alignment is otherwise maintained.Chronic deformity of the central inferior endplate of T1 vertebral body. Acute, minimally displaced or mildly displaced fracture of the right [id number] process. Acute superior endplate compression/burst-type fracture of theT12 vertebral body with less than 40% height loss. There is minimal retropulsion of the superior fracture fragment of approximately 4 mm, resulting in compression on the ventral aspect of the thecal sac and minimal spinal canal stenosis. Additional nondisplaced fracture of theT12 spinous process. Additional compression deformities or bone contusionsof the T5-T10 vertebral bodies cannot be totally excluded There is advanced degenerative disc disease. Otherwise, no high-grade central canalstenosis is seen. There is mild facet osteoarthritis at multiple levels. Thereare varying degrees of neural foraminal stenosis at multiple levels. Thereis subsegmental atelectasis in the dependent portions of the lung bases.There is a mild to moderate hiatal hernia. Multiple additional right-sided rib fractures are better assessed on the concurrent body CT. There is cholelithiasis. Lumbar spine: The alignment is normal. Acute burst, comminuted fracture of the L1 vertebral body with approximately 50% height loss and there are approximately 7 mm retropulsion resulting in moderate to severe spinal canal stenosis, worst on the right side. Fracture involves the posterior endplate as well as nondisplaced fractures of the left pedicle andlamina with bony retropulsion of fracture fragments into the spinal canal, as outlined above. Mildly displaced bilateral L1 transverse processfractures are noted. Minimally displaced right and suspected minimally displacedleft transverse fractures of the L2 vertebral body. Additional mild superior endplate compression fracture of the L4 with loss of less than 15% ofthe vertebral body height. No significant retropulsion. Subtle compression deformity of the superior endplate of L2 vertebral body is suspected for minimal superior endplate compression fracture. Additional occultfractures cannot be totally excluded. There is advanced degenerative disc disease. Additional moderate multilevel or moderate to severe spinal canalstenosis is noted, due to degenerative disc disease, worse at L4-L5, with overall moderate to severe spinal canal stenosis due to diffuse disc bulge, hypertrophy of the ligamentum flavum, and facet hypertrophy. There is advanced facet osteoarthritis at multiple levels. There are varyingdegrees of neural foraminal stenosis at multiple levels. There isatherosclerotic calcification of the abdominal aorta and its branch vessels. IMPRESSION: 1.No acute intracranial hemorrhage, midline shift, or significant mass effect. 2.Acute superior endplate compression/burst-type fracture of the T12 vertebral body with less than 40% height loss. There is minimal retropulsion of the superior fracture fragment of approximately 4 mm, resulting in compression on the ventral aspect of the thecal sac and minimal spinal canal stenosis. 3.Acute, minimally displaced or mildly displaced fracture of the rightT2 transverse process. Additional suspected fractures as outlined above. 4.Acute burst, comminuted fracture of the L1 vertebral body with approximately 50% height loss and there are approximately 7 mmretropulsion resulting in moderate to severe spinal canal stenosis, worst on theright side. Fracture involves the posterior endplate as well as nondisplaced fractures of the left pedicle and lamina with bony retropulsion offracture fragments into the spinal canal, as outlined above. 5.Bilateral L1 and L2 transverse process fractures. 6.Mildly displaced fracture of the superior endplate of L4. Additional occult or nondisplaced fractures cannot be totally excluded. 7.No acute fractures visualized in the cervical spine. 8.Cholelithiasis. 9.Please refer to the concurrent, dedicated body report for findings inthe chest, abdomen, and pelvis. These findings were discussed in detail with the patient's careprovider, Dr. Denise by Dr. Cameron via telephone at 5:18 PM on 02/03/2025 withreadback comprehension and verification. > Dictated by Calos Cameron MD, (vice president tax).0 I, Nicole Matthews MD have personally reviewed and interpretedthis examination/study. > Interpreting Provider: Nicole Matthews MD on 02/03/2025 8:15 PM Ashwini Hooper MD CT ORDERABLES Final Result * CT THORACIC SPINE WO CONTRAST - T/L-spine trauma, spine fracture (02/03/2025 4:53 PM CDT) Anatomical Region Laterality Modality Spine Computed Tomogra phy 02/03/2025 4:52 PM CDT Impressions 02/03/2025 8:15 PM CDT IMPRESSION: 1.No acute intracranial hemorrhage, midline shift, or significant mass effect. 2.Acute superior endplate compression/burst-type fracture of the T12 vertebral body with less than 40% height loss. There is minimal retropulsion of the superior fracture fragment of approximately 4 mm, resulting in compression on the ventral aspect of the thecal sac and minimal spinal canal stenosis. 3.Acute, minimally displaced or mildly displaced fracture of the right T2 transverse process. Additional suspected fractures as outlined above. 4.Acute burst, comminuted fracture of the L1 vertebral body with approximately 50% height loss and there are approximately 7 mm retropulsion resulting in moderate to severe spinal canal stenosis, worst on the right side. Fracture involves the posterior endplate as well as nondisplaced fractures of the left pedicle and lamina with bony retropulsion of fracture fragments into the spinal canal, as outlined above. 5.Bilateral L1 and L2 transverse process fractures. 6.Mildly displaced fracture of the superior endplate of L4. Additional occult or nondisplaced fractures cannot be totally excluded. 7.No acute fractures visualized in the cervical spine. 8.Cholelithiasis. 9.Please refer to the concurrent, dedicated body report for findings in the chest, abdomen, and pelvis. These findings were discussed in detail with the patient's care provider, Dr. Denise by Dr. Cameron via telephone at 5:18 PM on 02/03/2025 with readback comprehension and verification. > Dictated by Calos Cameron MD, (vice president tax).0 I, Nicole Matthews MD have personally reviewed and interpreted this examination/study. > Interpreting Provider: Nicole Matthews MD on 02/03/2025 8:15 PM Narrative 02/03/2025 8:15 PM CDT PROCEDURE: CT HEAD WO CONTRAST, CT CERVICAL SPINE WO CONTRAST, CT THORACIC SPINE WO CONTRAST, CT LUMBAR SPINE WO CONTRAST, DATE/TIME OF EXAM: 02/03/2025 4:54 PM, LOCATION [facility] INDICATION: Trauma EXAMINATION: 1.Computed tomography (CT) of the head without contrast 2.CT of the cervical spine without contrast 3.CT of the thoracic spine without contrast 4.CT of the lumbar spine without contrast ADDITIONAL CLINICAL INFORMATION: Ordering Provider Reason For Exam: Fall from scaffolding Technologist Note: None. Additional: None TECHNIQUE: CT of the head and cervical spine was performed without contrast according to standard protocol. Reformatted axial, sagittal, and coronal images of the thoracic and lumbar spine were obtained by the technologist from a concurrently performed body CT and sent to the workstation for review. CT dose reduction technique was used, including Automated Exposure Control. COMPARISON: No prior study is available for comparison at the time of this dictation. FINDINGS: Head: No acute intra- or extra-axial fluid collections are identified. There is mild cerebral volume loss with associated ex vacuo ventricular dilatation. The basilar cisterns are patent. No mass effect or midline shift is seen. The alejo-white matter differentiation is normal. Periventricular white matter hypoattenuation is indicative of chronic small vessel ischemic disease. There is vascular calcification of the carotid siphons. No acute calvarial fracture is identified.. Other than bilateral cataract extractions, the orbits appear normal. There is mild paranasal sinus disease. The mastoid air cells are clear. No soft tissue abnormality is identified. Cervical spine: There is mild anterolisthesis of C6 on C7. Trace retrolisthesis of C3 on C4. Mild retrolisthesis of C5 on C6. The alignment is otherwise maintained. The prevertebral soft tissue is normal in thickness. The bones are moderately osteopenic. Acute comminuted fracture of the left first rib. Vertebral bodies are normal in height without evidence of acute fracture. Other than middle atlantoaxial joint osteoarthritis, the craniocervical junction appears normal. There is mild to moderate multilevel degenerative disc disease. Multilevel moderate or moderate to severe spinal canal stenosis, worst at C3-C4. There are varying degrees of mild facet osteoarthritis. There are varying degrees of moderate to severe multilevel uncovertebral joint osteoarthritis with the same degree of neural foraminal stenosis at these levels. No soft tissue abnormality is identified. Scattered small cervical lymph nodes are nonspecific. Thoracic spine: The alignment is normal mild exaggeration of the thoracic kyphosis. Minimal anterolisthesis of T3 on T4. The alignment is otherwise maintained. Chronic deformity of the central inferior endplate of T1 vertebral body. Acute, minimally displaced or mildly displaced fracture of the right T2 transverse process. Acute superior endplate compression/burst-type fracture of the T12 vertebral body with less than 40% height loss. There is minimal retropulsion of the superior fracture fragment of approximately 4 mm, resulting in compression on the ventral aspect of the thecal sac and minimal spinal canal stenosis. Additional nondisplaced fracture of the T12 spinous process. Additional compression deformities or bone contusions of the T5-T10 vertebral bodies cannot be totally excluded There is advanced degenerative disc disease. Otherwise, no high-grade central canal stenosis is seen. There is mild facet osteoarthritis at multiple levels. There are varying degrees of neural foraminal stenosis at multiple levels. There is subsegmental atelectasis in the dependent portions of the lung bases. There is a mild to moderate hiatal hernia. Multiple additional right-sided rib fractures are better assessed on the concurrent body CT. There is cholelithiasis. Lumbar spine: The alignment is normal. Acute burst, comminuted fracture of the L1 vertebral body with approximately 50% height loss and there are approximately 7 mm retropulsion resulting in moderate to severe spinal canal stenosis, worst on the right side. Fracture involves the posterior endplate as well as nondisplaced fractures of the left pedicle and lamina with bony retropulsion of fracture fragments into the spinal canal, as outlined above. Mildly displaced bilateral L1 transverse process fractures are noted. Minimally displaced right and suspected minimally displaced left transverse fractures of the L2 vertebral body. Additional mild superior endplate compression fracture of the L4 with loss of less than 15% of the vertebral body height. No significant retropulsion. Subtle compression deformity of the superior endplate of L2 vertebral body is suspected for minimal superior endplate compression fracture. Additional occult fractures cannot be totally excluded. There is advanced degenerative disc disease. Additional moderate multilevel or moderate to severe spinal canal stenosis is noted, due to degenerative disc disease, worse at L4-L5, with overall moderate to severe spinal canal stenosis due to diffuse disc bulge, hypertrophy of the ligamentum flavum, and facet hypertrophy. There is advanced facet osteoarthritis at multiple levels. There are varying degrees of neural foraminal stenosis at multiple levels. There is atherosclerotic calcification of the abdominal aorta and its branch vessels. Procedure Note Nicole Matthews MD - 02/03/2025 PROCEDURE: CT HEAD WO CONTRAST, CT CERVICAL SPINE WO CONTRAST, CTTHORACIC SPINE WO CONTRAST, CT LUMBAR SPINE WO CONTRAST, DATE/TIME OF EXAM: 02/03/2025 4:54 PM, LOCATION [facility] INDICATION: Trauma EXAMINATION: 1.Computed tomography (CT) of the head without contrast 2.CT of the cervical spine without contrast 3.CT of the thoracic spine without contrast 4.CT of the lumbar spine without contrast ADDITIONAL CLINICAL INFORMATION: Ordering Provider Reason For Exam: Fall from scaffolding Technologist Note: None. Additional: None TECHNIQUE: CT of the head and cervical spine was performed withoutcontrast according to standard protocol. Reformatted axial, sagittal, and coronal images of the thoracic and lumbar spine were obtained by thetechnologist from a concurrently performed body CT and sent to the workstation for review. CT dose reduction technique was used, including AutomatedExposure Control. COMPARISON: No prior study is available for comparison at the time ofthis dictation. FINDINGS: Head: No acute intra- or extra-axial fluid collections are identified. Thereis mild cerebral volume loss with associated ex vacuo ventriculardilatation. The basilar cisterns are patent. No mass effect or midline shift isseen. The alejo-white matter differentiation is normal. Periventricular white matter hypoattenuation is indicative of chronic small vessel ischemic disease. There is vascular calcification of the carotid siphons. Noacute calvarial fracture is identified.. Other than bilateral cataract extractions, the orbits appear normal. There is mild paranasal sinus disease. The mastoid air cells are clear. No soft tissue abnormality is identified. Cervical spine: There is mild anterolisthesis of C6 on C7. Trace retrolisthesis of C3 on C4. Mild retrolisthesis of C5 on C6. The alignment is otherwisemaintained. The prevertebral soft tissue is normal in thickness. The bones are moderately osteopenic. Acute comminuted fracture of the left first rib. Vertebral bodies are normal in height without evidence of acutefracture. Other than middle atlantoaxial joint osteoarthritis, the craniocervical junction appears normal. There is mild to moderate multileveldegenerative disc disease. Multilevel moderate or moderate to severe spinal canal stenosis, worst at C3-C4. There are varying degrees of mild facet osteoarthritis. There are varying degrees of moderate to severemultilevel uncovertebral joint osteoarthritis with the same degree of neuralforaminal stenosis at these levels. No soft tissue abnormality is identified. Scattered small cervical lymph nodes are nonspecific. Thoracic spine: The alignment is normal mild exaggeration of the thoracic kyphosis.Minimal anterolisthesis of T3 on T4. The alignment is otherwise maintained.Chronic deformity of the central inferior endplate of T1 vertebral body. Acute, minimally displaced or mildly displaced fracture of the right [id number] process. Acute superior endplate compression/burst-type fracture of theT12 vertebral body with less than 40% height loss. There is minimal retropulsion of the superior fracture fragment of approximately 4 mm, resulting in compression on the ventral aspect of the thecal sac and minimal spinal canal stenosis. Additional nondisplaced fracture of theT12 spinous process. Additional compression deformities or bone contusionsof the T5-T10 vertebral bodies cannot be totally excluded There is advanced degenerative disc disease. Otherwise, no high-grade central canalstenosis is seen. There is mild facet osteoarthritis at multiple levels. Thereare varying degrees of neural foraminal stenosis at multiple levels. Thereis subsegmental atelectasis in the dependent portions of the lung bases.There is a mild to moderate hiatal hernia. Multiple additional right-sided rib fractures are better assessed on the concurrent body CT. There is cholelithiasis. Lumbar spine: The alignment is normal. Acute burst, comminuted fracture of the L1 vertebral body with approximately 50% height loss and there are approximately 7 mm retropulsion resulting in moderate to severe spinal canal stenosis, worst on the right side. Fracture involves the posterior endplate as well as nondisplaced fractures of the left pedicle andlamina with bony retropulsion of fracture fragments into the spinal canal, as outlined above. Mildly displaced bilateral L1 transverse processfractures are noted. Minimally displaced right and suspected minimally displacedleft transverse fractures of the L2 vertebral body. Additional mild superior endplate compression fracture of the L4 with loss of less than 15% ofthe vertebral body height. No significant retropulsion. Subtle compression deformity of the superior endplate of L2 vertebral body is suspected for minimal superior endplate compression fracture. Additional occultfractures cannot be totally excluded. There is advanced degenerative disc disease. Additional moderate multilevel or moderate to severe spinal canalstenosis is noted, due to degenerative disc disease, worse at L4-L5, with overall moderate to severe spinal canal stenosis due to diffuse disc bulge, hypertrophy of the ligamentum flavum, and facet hypertrophy. There is advanced facet osteoarthritis at multiple levels. There are varyingdegrees of neural foraminal stenosis at multiple levels. There isatherosclerotic calcification of the abdominal aorta and its branch vessels. IMPRESSION: 1.No acute intracranial hemorrhage, midline shift, or significant mass effect. 2.Acute superior endplate compression/burst-type fracture of the T12 vertebral body with less than 40% height loss. There is minimal retropulsion of the superior fracture fragment of approximately 4 mm, resulting in compression on the ventral aspect of the thecal sac and minimal spinal canal stenosis. 3.Acute, minimally displaced or mildly displaced fracture of the rightT2 transverse process. Additional suspected fractures as outlined above. 4.Acute burst, comminuted fracture of the L1 vertebral body with approximately 50% height loss and there are approximately 7 mmretropulsion resulting in moderate to severe spinal canal stenosis, worst on theright side. Fracture involves the posterior endplate as well as nondisplaced fractures of the left pedicle and lamina with bony retropulsion offracture fragments into the spinal canal, as outlined above. 5.Bilateral L1 and L2 transverse process fractures. 6.Mildly displaced fracture of the superior endplate of L4. Additional occult or nondisplaced fractures cannot be totally excluded. 7.No acute fractures visualized in the cervical spine. 8.Cholelithiasis. 9.Please refer to the concurrent, dedicated body report for findings inthe chest, abdomen, and pelvis. These findings were discussed in detail with the patient's careprovider, Dr. Denise by Dr. Cameron via telephone at 5:18 PM on 02/03/2025 withreadback comprehension and verification. > Dictated by Calos Cameron MD, (vice president tax).0 I, Nicole Matthews MD have personally reviewed and interpretedthis examination/study. > Interpreting Provider: Nicole Matthews MD on 02/03/2025 8:15 PM us Ashwini Hooper MD CT ORDERABLES Final Result * CT CERVICAL SPINE WO CONTRAST - C-Spine Trauma, Spine fracture (02/03/2025 4:53 PM CDT) Anatomical Region Laterality Modality Spine Computed Tomogra phy 02/03/2025 4:52 PM CDT Impressions 02/03/2025 8:15 PM CDT IMPRESSION: 1.No acute intracranial hemorrhage, midline shift, or significant mass effect. 2.Acute superior endplate compression/burst-type fracture of the T12 vertebral body with less than 40% height loss. There is minimal retropulsion of the superior fracture fragment of approximately 4 mm, resulting in compression on the ventral aspect of the thecal sac and minimal spinal canal stenosis. 3.Acute, minimally displaced or mildly displaced fracture of the right T2 transverse process. Additional suspected fractures as outlined above. 4.Acute burst, comminuted fracture of the L1 vertebral body with approximately 50% height loss and there are approximately 7 mm retropulsion resulting in moderate to severe spinal canal stenosis, worst on the right side. Fracture involves the posterior endplate as well as nondisplaced fractures of the left pedicle and lamina with bony retropulsion of fracture fragments into the spinal canal, as outlined above. 5.Bilateral L1 and L2 transverse process fractures. 6.Mildly displaced fracture of the superior endplate of L4. Additional occult or nondisplaced fractures cannot be totally excluded. 7.No acute fractures visualized in the cervical spine. 8.Cholelithiasis. 9.Please refer to the concurrent, dedicated body report for findings in the chest, abdomen, and pelvis. These findings were discussed in detail with the patient's care provider, Dr. Denise by Dr. Cameron via telephone at 5:18 PM on 02/03/2025 with readback comprehension and verification. > Dictated by Calos Cameron MD, (vice president tax).0 I, Nicole Matthews MD have personally reviewed and interpreted this examination/study. > Interpreting Provider: Nicole Matthews MD on 02/03/2025 8:15 PM Narrative 02/03/2025 8:15 PM CDT PROCEDURE: CT HEAD WO CONTRAST, CT CERVICAL SPINE WO CONTRAST, CT THORACIC SPINE WO CONTRAST, CT LUMBAR SPINE WO CONTRAST, DATE/TIME OF EXAM: 02/03/2025 4:54 PM, LOCATION [facility] INDICATION: Trauma EXAMINATION: 1.Computed tomography (CT) of the head without contrast 2.CT of the cervical spine without contrast 3.CT of the thoracic spine without contrast 4.CT of the lumbar spine without contrast ADDITIONAL CLINICAL INFORMATION: Ordering Provider Reason For Exam: Fall from scaffolding Technologist Note: None. Additional: None TECHNIQUE: CT of the head and cervical spine was performed without contrast according to standard protocol. Reformatted axial, sagittal, and coronal images of the thoracic and lumbar spine were obtained by the technologist from a concurrently performed body CT and sent to the workstation for review. CT dose reduction technique was used, including Automated Exposure Control. COMPARISON: No prior study is available for comparison at the time of this dictation. FINDINGS: Head: No acute intra- or extra-axial fluid collections are identified. There is mild cerebral volume loss with associated ex vacuo ventricular dilatation. The basilar cisterns are patent. No mass effect or midline shift is seen. The alejo-white matter differentiation is normal. Periventricular white matter hypoattenuation is indicative of chronic small vessel ischemic disease. There is vascular calcification of the carotid siphons. No acute calvarial fracture is identified.. Other than bilateral cataract extractions, the orbits appear normal. There is mild paranasal sinus disease. The mastoid air cells are clear. No soft tissue abnormality is identified. Cervical spine: There is mild anterolisthesis of C6 on C7. Trace retrolisthesis of C3 on C4. Mild retrolisthesis of C5 on C6. The alignment is otherwise maintained. The prevertebral soft tissue is normal in thickness. The bones are moderately osteopenic. Acute comminuted fracture of the left first rib. Vertebral bodies are normal in height without evidence of acute fracture. Other than middle atlantoaxial joint osteoarthritis, the craniocervical junction appears normal. There is mild to moderate multilevel degenerative disc disease. Multilevel moderate or moderate to severe spinal canal stenosis, worst at C3-C4. There are varying degrees of mild facet osteoarthritis. There are varying degrees of moderate to severe multilevel uncovertebral joint osteoarthritis with the same degree of neural foraminal stenosis at these levels. No soft tissue abnormality is identified. Scattered small cervical lymph nodes are nonspecific. Thoracic spine: The alignment is normal mild exaggeration of the thoracic kyphosis. Minimal anterolisthesis of T3 on T4. The alignment is otherwise maintained. Chronic deformity of the central inferior endplate of T1 vertebral body. Acute, minimally displaced or mildly displaced fracture of the right T2 transverse process. Acute superior endplate compression/burst-type fracture of the T12 vertebral body with less than 40% height loss. There is minimal retropulsion of the superior fracture fragment of approximately 4 mm, resulting in compression on the ventral aspect of the thecal sac and minimal spinal canal stenosis. Additional nondisplaced fracture of the T12 spinous process. Additional compression deformities or bone contusions of the T5-T10 vertebral bodies cannot be totally excluded There is advanced degenerative disc disease. Otherwise, no high-grade central canal stenosis is seen. There is mild facet osteoarthritis at multiple levels. There are varying degrees of neural foraminal stenosis at multiple levels. There is subsegmental atelectasis in the dependent portions of the lung bases. There is a mild to moderate hiatal hernia. Multiple additional right-sided rib fractures are better assessed on the concurrent body CT. There is cholelithiasis. Lumbar spine: The alignment is normal. Acute burst, comminuted fracture of the L1 vertebral body with approximately 50% height loss and there are approximately 7 mm retropulsion resulting in moderate to severe spinal canal stenosis, worst on the right side. Fracture involves the posterior endplate as well as nondisplaced fractures of the left pedicle and lamina with bony retropulsion of fracture fragments into the spinal canal, as outlined above. Mildly displaced bilateral L1 transverse process fractures are noted. Minimally displaced right and suspected minimally displaced left transverse fractures of the L2 vertebral body. Additional mild superior endplate compression fracture of the L4 with loss of less than 15% of the vertebral body height. No significant retropulsion. Subtle compression deformity of the superior endplate of L2 vertebral body is suspected for minimal superior endplate compression fracture. Additional occult fractures cannot be totally excluded. There is advanced degenerative disc disease. Additional moderate multilevel or moderate to severe spinal canal stenosis is noted, due to degenerative disc disease, worse at L4-L5, with overall moderate to severe spinal canal stenosis due to diffuse disc bulge, hypertrophy of the ligamentum flavum, and facet hypertrophy. There is advanced facet osteoarthritis at multiple levels. There are varying degrees of neural foraminal stenosis at multiple levels. There is atherosclerotic calcification of the abdominal aorta and its branch vessels. Procedure Note Nicole Matthews MD - 02/03/2025 PROCEDURE: CT HEAD WO CONTRAST, CT CERVICAL SPINE WO CONTRAST, CTTHORACIC SPINE WO CONTRAST, CT LUMBAR SPINE WO CONTRAST, DATE/TIME OF EXAM: 02/03/2025 4:54 PM, LOCATION [facility] INDICATION: Trauma EXAMINATION: 1.Computed tomography (CT) of the head without contrast 2.CT of the cervical spine without contrast 3.CT of the thoracic spine without contrast 4.CT of the lumbar spine without contrast ADDITIONAL CLINICAL INFORMATION: Ordering Provider Reason For Exam: Fall from scaffolding Technologist Note: None. Additional: None TECHNIQUE: CT of the head and cervical spine was performed withoutcontrast according to standard protocol. Reformatted axial, sagittal, and coronal images of the thoracic and lumbar spine were obtained by thetechnologist from a concurrently performed body CT and sent to the workstation for review. CT dose reduction technique was used, including AutomatedExposure Control. COMPARISON: No prior study is available for comparison at the time ofthis dictation. FINDINGS: Head: No acute intra- or extra-axial fluid collections are identified. Thereis mild cerebral volume loss with associated ex vacuo ventriculardilatation. The basilar cisterns are patent. No mass effect or midline shift isseen. The alejo-white matter differentiation is normal. Periventricular white matter hypoattenuation is indicative of chronic small vessel ischemic disease. There is vascular calcification of the carotid siphons. Noacute calvarial fracture is identified.. Other than bilateral cataract extractions, the orbits appear normal. There is mild paranasal sinus disease. The mastoid air cells are clear. No soft tissue abnormality is identified. Cervical spine: There is mild anterolisthesis of C6 on C7. Trace retrolisthesis of C3 on C4. Mild retrolisthesis of C5 on C6. The alignment is otherwisemaintained. The prevertebral soft tissue is normal in thickness. The bones are moderately osteopenic. Acute comminuted fracture of the left first rib. Vertebral bodies are normal in height without evidence of acutefracture. Other than middle atlantoaxial joint osteoarthritis, the craniocervical junction appears normal. There is mild to moderate multileveldegenerative disc disease. Multilevel moderate or moderate to severe spinal canal stenosis, worst at C3-C4. There are varying degrees of mild facet osteoarthritis. There are varying degrees of moderate to severemultilevel uncovertebral joint osteoarthritis with the same degree of neuralforaminal stenosis at these levels. No soft tissue abnormality is identified. Scattered small cervical lymph nodes are nonspecific. Thoracic spine: The alignment is normal mild exaggeration of the thoracic kyphosis.Minimal anterolisthesis of T3 on T4. The alignment is otherwise maintained.Chronic deformity of the central inferior endplate of T1 vertebral body. Acute, minimally displaced or mildly displaced fracture of the right [id number] process. Acute superior endplate compression/burst-type fracture of theT12 vertebral body with less than 40% height loss. There is minimal retropulsion of the superior fracture fragment of approximately 4 mm, resulting in compression on the ventral aspect of the thecal sac and minimal spinal canal stenosis. Additional nondisplaced fracture of theT12 spinous process. Additional compression deformities or bone contusionsof the T5-T10 vertebral bodies cannot be totally excluded There is advanced degenerative disc disease. Otherwise, no high-grade central canalstenosis is seen. There is mild facet osteoarthritis at multiple levels. Thereare varying degrees of neural foraminal stenosis at multiple levels. Thereis subsegmental atelectasis in the dependent portions of the lung bases.There is a mild to moderate hiatal hernia. Multiple additional right-sided rib fractures are better assessed on the concurrent body CT. There is cholelithiasis. Lumbar spine: The alignment is normal. Acute burst, comminuted fracture of the L1 vertebral body with approximately 50% height loss and there are approximately 7 mm retropulsion resulting in moderate to severe spinal canal stenosis, worst on the right side. Fracture involves the posterior endplate as well as nondisplaced fractures of the left pedicle andlamina with bony retropulsion of fracture fragments into the spinal canal, as outlined above. Mildly displaced bilateral L1 transverse processfractures are noted. Minimally displaced right and suspected minimally displacedleft transverse fractures of the L2 vertebral body. Additional mild superior endplate compression fracture of the L4 with loss of less than 15% ofthe vertebral body height. No significant retropulsion. Subtle compression deformity of the superior endplate of L2 vertebral body is suspected for minimal superior endplate compression fracture. Additional occultfractures cannot be totally excluded. There is advanced degenerative disc disease. Additional moderate multilevel or moderate to severe spinal canalstenosis is noted, due to degenerative disc disease, worse at L4-L5, with overall moderate to severe spinal canal stenosis due to diffuse disc bulge, hypertrophy of the ligamentum flavum, and facet hypertrophy. There is advanced facet osteoarthritis at multiple levels. There are varyingdegrees of neural foraminal stenosis at multiple levels. There isatherosclerotic calcification of the abdominal aorta and its branch vessels. IMPRESSION: 1.No acute intracranial hemorrhage, midline shift, or significant mass effect. 2.Acute superior endplate compression/burst-type fracture of the T12 vertebral body with less than 40% height loss. There is minimal retropulsion of the superior fracture fragment of approximately 4 mm, resulting in compression on the ventral aspect of the thecal sac and minimal spinal canal stenosis. 3.Acute, minimally displaced or mildly displaced fracture of the rightT2 transverse process. Additional suspected fractures as outlined above. 4.Acute burst, comminuted fracture of the L1 vertebral body with approximately 50% height loss and there are approximately 7 mmretropulsion resulting in moderate to severe spinal canal stenosis, worst on theright side. Fracture involves the posterior endplate as well as nondisplaced fractures of the left pedicle and lamina with bony retropulsion offracture fragments into the spinal canal, as outlined above. 5.Bilateral L1 and L2 transverse process fractures. 6.Mildly displaced fracture of the superior endplate of L4. Additional occult or nondisplaced fractures cannot be totally excluded. 7.No acute fractures visualized in the cervical spine. 8.Cholelithiasis. 9.Please refer to the concurrent, dedicated body report for findings inthe chest, abdomen, and pelvis. These findings were discussed in detail with the patient's careprovider, Dr. Denise by Dr. Cameron via telephone at 5:18 PM on 02/03/2025 withreadback comprehension and verification. > Dictated by Calos Cameron MD, (vice president tax).0 I, Nicole Matthews MD have personally reviewed and interpretedthis examination/study. > Interpreting Provider: Nicole Matthews MD on 02/03/2025 8:15 PM Ashwini Hooper MD CT ORDERABLES Final Result * CT HEAD WO CONTRAST - Head Trauma, CSF leak, mental status changes (02/03/2025 4:53 PM CDT) Anatomical Region Laterality Modality Head Computed Tomogra phy 02/03/2025 4:52 PM CDT Impressions 02/03/2025 8:15 PM CDT IMPRESSION: 1.No acute intracranial hemorrhage, midline shift, or significant mass effect. 2.Acute superior endplate compression/burst-type fracture of the T12 vertebral body with less than 40% height loss. There is minimal retropulsion of the superior fracture fragment of approximately 4 mm, resulting in compression on the ventral aspect of the thecal sac and minimal spinal canal stenosis. 3.Acute, minimally displaced or mildly displaced fracture of the right T2 transverse process. Additional suspected fractures as outlined above. 4.Acute burst, comminuted fracture of the L1 vertebral body with approximately 50% height loss and there are approximately 7 mm retropulsion resulting in moderate to severe spinal canal stenosis, worst on the right side. Fracture involves the posterior endplate as well as nondisplaced fractures of the left pedicle and lamina with bony retropulsion of fracture fragments into the spinal canal, as outlined above. 5.Bilateral L1 and L2 transverse process fractures. 6.Mildly displaced fracture of the superior endplate of L4. Additional occult or nondisplaced fractures cannot be totally excluded. 7.No acute fractures visualized in the cervical spine. 8.Cholelithiasis. 9.Please refer to the concurrent, dedicated body report for findings in the chest, abdomen, and pelvis. These findings were discussed in detail with the patient's care provider, Dr. Denise by Dr. Cameron via telephone at 5:18 PM on 02/03/2025 with readback comprehension and verification. > Dictated by Calos Cameron MD, (vice president tax).0 I, Nicole Matthews MD have personally reviewed and interpreted this examination/study. > Interpreting Provider: Nicole Matthews MD on 02/03/2025 8:15 PM Narrative 02/03/2025 8:15 PM CDT PROCEDURE: CT HEAD WO CONTRAST, CT CERVICAL SPINE WO CONTRAST, CT THORACIC SPINE WO CONTRAST, CT LUMBAR SPINE WO CONTRAST, DATE/TIME OF EXAM: 02/03/2025 4:54 PM, LOCATION [facility] INDICATION: Trauma EXAMINATION: 1.Computed tomography (CT) of the head without contrast 2.CT of the cervical spine without contrast 3.CT of the thoracic spine without contrast 4.CT of the lumbar spine without contrast ADDITIONAL CLINICAL INFORMATION: Ordering Provider Reason For Exam: Fall from scaffolding Technologist Note: None. Additional: None TECHNIQUE: CT of the head and cervical spine was performed without contrast according to standard protocol. Reformatted axial, sagittal, and coronal images of the thoracic and lumbar spine were obtained by the technologist from a concurrently performed body CT and sent to the workstation for review. CT dose reduction technique was used, including Automated Exposure Control. COMPARISON: No prior study is available for comparison at the time of this dictation. FINDINGS: Head: No acute intra- or extra-axial fluid collections are identified. There is mild cerebral volume loss with associated ex vacuo ventricular dilatation. The basilar cisterns are patent. No mass effect or midline shift is seen. The alejo-white matter differentiation is normal. Periventricular white matter hypoattenuation is indicative of chronic small vessel ischemic disease. There is vascular calcification of the carotid siphons. No acute calvarial fracture is identified.. Other than bilateral cataract extractions, the orbits appear normal. There is mild paranasal sinus disease. The mastoid air cells are clear. No soft tissue abnormality is identified. Cervical spine: There is mild anterolisthesis of C6 on C7. Trace retrolisthesis of C3 on C4. Mild retrolisthesis of C5 on C6. The alignment is otherwise maintained. The prevertebral soft tissue is normal in thickness. The bones are moderately osteopenic. Acute comminuted fracture of the left first rib. Vertebral bodies are normal in height without evidence of acute fracture. Other than middle atlantoaxial joint osteoarthritis, the craniocervical junction appears normal. There is mild to moderate multilevel degenerative disc disease. Multilevel moderate or moderate to severe spinal canal stenosis, worst at C3-C4. There are varying degrees of mild facet osteoarthritis. There are varying degrees of moderate to severe multilevel uncovertebral joint osteoarthritis with the same degree of neural foraminal stenosis at these levels. No soft tissue abnormality is identified. Scattered small cervical lymph nodes are nonspecific. Thoracic spine: The alignment is normal mild exaggeration of the thoracic kyphosis. Minimal anterolisthesis of T3 on T4. The alignment is otherwise maintained. Chronic deformity of the central inferior endplate of T1 vertebral body. Acute, minimally displaced or mildly displaced fracture of the right T2 transverse process. Acute superior endplate compression/burst-type fracture of the T12 vertebral body with less than 40% height loss. There is minimal retropulsion of the superior fracture fragment of approximately 4 mm, resulting in compression on the ventral aspect of the thecal sac and minimal spinal canal stenosis. Additional nondisplaced fracture of the T12 spinous process. Additional compression deformities or bone contusions of the T5-T10 vertebral bodies cannot be totally excluded There is advanced degenerative disc disease. Otherwise, no high-grade central canal stenosis is seen. There is mild facet osteoarthritis at multiple levels. There are varying degrees of neural foraminal stenosis at multiple levels. There is subsegmental atelectasis in the dependent portions of the lung bases. There is a mild to moderate hiatal hernia. Multiple additional right-sided rib fractures are better assessed on the concurrent body CT. There is cholelithiasis. Lumbar spine: The alignment is normal. Acute burst, comminuted fracture of the L1 vertebral body with approximately 50% height loss and there are approximately 7 mm retropulsion resulting in moderate to severe spinal canal stenosis, worst on the right side. Fracture involves the posterior endplate as well as nondisplaced fractures of the left pedicle and lamina with bony retropulsion of fracture fragments into the spinal canal, as outlined above. Mildly displaced bilateral L1 transverse process fractures are noted. Minimally displaced right and suspected minimally displaced left transverse fractures of the L2 vertebral body. Additional mild superior endplate compression fracture of the L4 with loss of less than 15% of the vertebral body height. No significant retropulsion. Subtle compression deformity of the superior endplate of L2 vertebral body is suspected for minimal superior endplate compression fracture. Additional occult fractures cannot be totally excluded. There is advanced degenerative disc disease. Additional moderate multilevel or moderate to severe spinal canal stenosis is noted, due to degenerative disc disease, worse at L4-L5, with overall moderate to severe spinal canal stenosis due to diffuse disc bulge, hypertrophy of the ligamentum flavum, and facet hypertrophy. There is advanced facet osteoarthritis at multiple levels. There are varying degrees of neural foraminal stenosis at multiple levels. There is atherosclerotic calcification of the abdominal aorta and its branch vessels. Procedure Note Nicole Matthews MD - 02/03/2025 PROCEDURE: CT HEAD WO CONTRAST, CT CERVICAL SPINE WO CONTRAST, CTTHORACIC SPINE WO CONTRAST, CT LUMBAR SPINE WO CONTRAST, DATE/TIME OF EXAM: 02/03/2025 4:54 PM, LOCATION [facility] INDICATION: Trauma EXAMINATION: 1.Computed tomography (CT) of the head without contrast 2.CT of the cervical spine without contrast 3.CT of the thoracic spine without contrast 4.CT of the lumbar spine without contrast ADDITIONAL CLINICAL INFORMATION: Ordering Provider Reason For Exam: Fall from scaffolding Technologist Note: None. Additional: None TECHNIQUE: CT of the head and cervical spine was performed withoutcontrast according to standard protocol. Reformatted axial, sagittal, and coronal images of the thoracic and lumbar spine were obtained by thetechnologist from a concurrently performed body CT and sent to the workstation for review. CT dose reduction technique was used, including AutomatedExposure Control. COMPARISON: No prior study is available for comparison at the time ofthis dictation. FINDINGS: Head: No acute intra- or extra-axial fluid collections are identified. Thereis mild cerebral volume loss with associated ex vacuo ventriculardilatation. The basilar cisterns are patent. No mass effect or midline shift isseen. The alejo-white matter differentiation is normal. Periventricular white matter hypoattenuation is indicative of chronic small vessel ischemic disease. There is vascular calcification of the carotid siphons. Noacute calvarial fracture is identified.. Other than bilateral cataract extractions, the orbits appear normal. There is mild paranasal sinus disease. The mastoid air cells are clear. No soft tissue abnormality is identified. Cervical spine: There is mild anterolisthesis of C6 on C7. Trace retrolisthesis of C3 on C4. Mild retrolisthesis of C5 on C6. The alignment is otherwisemaintained. The prevertebral soft tissue is normal in thickness. The bones are moderately osteopenic. Acute comminuted fracture of the left first rib. Vertebral bodies are normal in height without evidence of acutefracture. Other than middle atlantoaxial joint osteoarthritis, the craniocervical junction appears normal. There is mild to moderate multileveldegenerative disc disease. Multilevel moderate or moderate to severe spinal canal stenosis, worst at C3-C4. There are varying degrees of mild facet osteoarthritis. There are varying degrees of moderate to severemultilevel uncovertebral joint osteoarthritis with the same degree of neuralforaminal stenosis at these levels. No soft tissue abnormality is identified. Scattered small cervical lymph nodes are nonspecific. Thoracic spine: The alignment is normal mild exaggeration of the thoracic kyphosis.Minimal anterolisthesis of T3 on T4. The alignment is otherwise maintained.Chronic deformity of the central inferior endplate of T1 vertebral body. Acute, minimally displaced or mildly displaced fracture of the right [id number] process. Acute superior endplate compression/burst-type fracture of theT12 vertebral body with less than 40% height loss. There is minimal retropulsion of the superior fracture fragment of approximately 4 mm, resulting in compression on the ventral aspect of the thecal sac and minimal spinal canal stenosis. Additional nondisplaced fracture of theT12 spinous process. Additional compression deformities or bone contusionsof the T5-T10 vertebral bodies cannot be totally excluded There is advanced degenerative disc disease. Otherwise, no high-grade central canalstenosis is seen. There is mild facet osteoarthritis at multiple levels. Thereare varying degrees of neural foraminal stenosis at multiple levels. Thereis subsegmental atelectasis in the dependent portions of the lung bases.There is a mild to moderate hiatal hernia. Multiple additional right-sided rib fractures are better assessed on the concurrent body CT. There is cholelithiasis. Lumbar spine: The alignment is normal. Acute burst, comminuted fracture of the L1 vertebral body with approximately 50% height loss and there are approximately 7 mm retropulsion resulting in moderate to severe spinal canal stenosis, worst on the right side. Fracture involves the posterior endplate as well as nondisplaced fractures of the left pedicle andlamina with bony retropulsion of fracture fragments into the spinal canal, as outlined above. Mildly displaced bilateral L1 transverse processfractures are noted. Minimally displaced right and suspected minimally displacedleft transverse fractures of the L2 vertebral body. Additional mild superior endplate compression fracture of the L4 with loss of less than 15% ofthe vertebral body height. No significant retropulsion. Subtle compression deformity of the superior endplate of L2 vertebral body is suspected for minimal superior endplate compression fracture. Additional occultfractures cannot be totally excluded. There is advanced degenerative disc disease. Additional moderate multilevel or moderate to severe spinal canalstenosis is noted, due to degenerative disc disease, worse at L4-L5, with overall moderate to severe spinal canal stenosis due to diffuse disc bulge, hypertrophy of the ligamentum flavum, and facet hypertrophy. There is advanced facet osteoarthritis at multiple levels. There are varyingdegrees of neural foraminal stenosis at multiple levels. There isatherosclerotic calcification of the abdominal aorta and its branch vessels. IMPRESSION: 1.No acute intracranial hemorrhage, midline shift, or significant mass effect. 2.Acute superior endplate compression/burst-type fracture of the T12 vertebral body with less than 40% height loss. There is minimal retropulsion of the superior fracture fragment of approximately 4 mm, resulting in compression on the ventral aspect of the thecal sac and minimal spinal canal stenosis. 3.Acute, minimally displaced or mildly displaced fracture of the rightT2 transverse process. Additional suspected fractures as outlined above. 4.Acute burst, comminuted fracture of the L1 vertebral body with approximately 50% height loss and there are approximately 7 mmretropulsion resulting in moderate to severe spinal canal stenosis, worst on theright side. Fracture involves the posterior endplate as well as nondisplaced fractures of the left pedicle and lamina with bony retropulsion offracture fragments into the spinal canal, as outlined above. 5.Bilateral L1 and L2 transverse process fractures. 6.Mildly displaced fracture of the superior endplate of L4. Additional occult or nondisplaced fractures cannot be totally excluded. 7.No acute fractures visualized in the cervical spine. 8.Cholelithiasis. 9.Please refer to the concurrent, dedicated body report for findings inthe chest, abdomen, and pelvis. These findings were discussed in detail with the patient's careprovider, Dr. Denise by Dr. Cameron via telephone at 5:18 PM on 02/03/2025 withreadback comprehension and verification. > Dictated by Calos Cameron MD, (vice president tax).0 Nicole Kirk MD have personally reviewed and interpretedthis examination/study. > Interpreting Provider: Nicole Matthews MD on 02/03/2025 8:15 PM Ashwini Hooper MD CT ORDERABLES Final Result * XR PELVIS 1 OR 2VW (02/03/2025 4:49 PM CDT) Anatomical Region Laterality Modality Pelvis Digital Radiogra phy 02/03/2025 4:57 PM CDT Impressions 02/04/2025 7:03 AM CDT IMPRESSION: No fracture or dislocation. > Dictated by Calos Cameron MD, (vice president tax). Kanu Kirk MD have personally reviewed and interpreted this examination/study. > Interpreting Provider: Kanu Dennison MD on 02/04/2025 7:03 AM Narrative 02/04/2025 7:03 AM CDT PROCEDURE: XR PELVIS 1 OR 2VW, DATE/TIME OF EXAM: 02/03/2025 4:49 PM, LOCATION [facility] INDICATION: T14.90XA: Trauma ADDITIONAL CLINICAL INFORMATION: Ordering Provider Reason For Exam: Technologist Note: Additional: COMPARISON: None. TECHNIQUE: AP views of the pelvis. FINDINGS: No acute fracture is identified. The femoral heads are well-seated in their respective acetabulum. Joint spaces are preserved. Pubic symphysis is intact. The osseous architecture and density are normal. The SI joints are intact. Procedure Note Kanu Dennison MD - 02/04/2025 PROCEDURE: XR PELVIS 1 OR 2VW, DATE/TIME OF EXAM: 02/03/2025 4:49 PM, LOCATION [facility] INDICATION: T14.90XA: Trauma ADDITIONAL CLINICAL INFORMATION: Ordering Provider Reason For Exam: Technologist Note: Additional: COMPARISON: None. TECHNIQUE: AP views of the pelvis. FINDINGS: No acute fracture is identified. The femoral heads are well-seated intheir respective acetabulum. Joint spaces are preserved. Pubic symphysis is intact. The osseous architecture and density are normal. The SI jointsare intact. IMPRESSION: No fracture or dislocation. > Dictated by Calos Cameron MD, (vice president tax). I, Kanu Dennison MD have personally reviewed and interpreted this examination/study. > Interpreting Provider: Kanu Dennison MD on 02/04/2025 7:03 AM Result Rodriguez Hooper MD DIAGNOSTIC IMAGING ORDERABLES Final Result * PTT [facility] (02/03/2025 4:35 PM CDT) APTT 27.1 23.0 - 38.4 Seconds 02/03/2025 5:02 PM CDT [facility] Comment:Suggested therapeuti c range for full dose I.V. unfractionated heparin therapy for venous thromboembolism is 71 to 109 seconds. Blood BLOOD SPECIMEN / Unknown Venipuncture / Unknown 02/03/2025 4:35 PM CDT 02/03/2025 4:36 PM CDT us Ashwini Hooper MD LAB - COAGULATION ORDERABLES Final Result Performing Organization Address [facility] Co de Phone Number [facility] [address] [place] [id number], [facility] [phone] * PT-INR [facility] (02/03/2025 4:35 PM CDT) PT 13.1 12.1 - 14.8 Seconds 02/03/2025 5:02 PM CDT [facility] INR 1.0 See Comment 02/03/2025 5:02 PM CDT [facility] Comment:The suggested therap eutic range for standard coumadin (warfarin) therapy is an INR of 2.0-3.0. For high-risk patients (Mechanical Mitral Valve Prosthesis, etc.), the suggested prophylactic therapeutic range is an INR of 2.5-3.5. Blood BLOOD SPECIMEN / Unknown Venipuncture / Unknown 02/03/2025 4:35 PM CDT 02/03/2025 4:36 PM CDT us Ashwini Hooper MD LAB - COAGULATION ORDERABLES Final Result [address] [address], [facility] [phone] * LIPASE BLOOD (02/03/2025 4:35 PM CDT) Lipase 50 8 - 78 U/L 02/03/2025 5:07 PM CDT [facility] Blood BLOOD SPECIMEN / Unknown Venipuncture / Unknown 02/03/2025 4:35 PM CDT 02/03/2025 4:41 PM CDT Narrative [facility] - 02/03/2025 5:07 PM CDT Lipase results from the Rodriguez Alinity analyzer may not be comparable with other methodologies. Ashwini Hooper MD LAB - CHEMISTRY ORDERABLES Fi nal Result Performing Organization Address City/[facility]/ZIP Co de Phone Number [address] [address], [facility] [phone] * AMYLASE BLOOD (02/03/2025 4:35 PM CDT) Amylase 65 25 - 125 U/L 02/03/2025 5:07 PM CDT [facility] Blood BLOOD SPECIMEN / Unknown Venipuncture / Unknown 02/03/2025 4:35 PM CDT 02/03/2025 4:41 PM CDT Ashwini Hooper MD LAB - CHEMISTRY ORDERABLES nal Result [address] [address], [facility] [phone] * ALCOHOL ETHYL BLOOD (02/03/2025 4:35 PM CDT) Ethanol (mg/dL) <10 <10 mg/dL 5:07 PM CDT [facility] Ethanol Calculated (g/dL) <0.010 <=0.010 g/dL 02/03/2025 5:07 PM CDT [facility] Blood BLOOD SPECIMEN / Unknown Venipuncture / Unknown 02/03/2025 4:35 PM CDT 02/03/2025 4:41 PM CDT Narrative [facility] - 02/03/2025 5:07 PM CDT Ethanol Interp <10: None Detected. Depression of SERVICE PLUMBER: >100 mg/dl Potentially Critical: >250 mg/dl Potentially Fatal >400 mg/dl Ethanol in the patient's blood will contribute to the osmolar gap. Ethanol's contribution to the osmolar gap can be estimated by dividing the concentration of ethanol in mg/dL by 4.6. This test is for clinical use only and does not equal a LAXMI for legal purposes. us Ashwini Hooper MD LAB - CHEMISTRY ORDERABLES Fi nal Result [facility] [address] [place] [address], [place] [phone] from Last [address] [facility] MEDICARE [facility] Care Address: [address] [address] Advance Directives * Full Code (Latest Code Status on File) Date Activated Date Inactivated Comments 02/03/2025 6:41 PM 02/05/2025 5:00 PM Care Teams Digging Machine Operator Relationship Specialty Start Date End Date Brad Sanchez MD [address] [place] [address] Dr Alexis [address] [place] [phone] PCP - General Family Medicine 02/03/25
--- OUTSIDE RECORDS SUMMARY | 2025-02-10 17:43 | XMS_ITS | Encounter Summary ---
Author Organization [facility] Address [address] [place] [address] Care Team Providers Care Health And Wellness Director Name Role Phone Braulio Child MD Primary Care Provider [phone] Nicole Prather [facility] Unavailable [phone] Alvina Palencia MA Unavailable Encounter Details Date Type Department Care Team (Late st Contact Info) Description 03/22/2024 Telephone Family Phys[facility] [address] [place] [address] Braulio Child MD [address] [facility] [place] [address] Social History Tobacco Use Types Packs/Day Years Used Date Smoking Tobacco: Never Smokeless Tobacco: Never PHQ-2 Answer Date Recorded PHQ-2 Total Score (If total score is 3 or more points, staff should administer the PHQ-9) 0 03/22/2024 Sex and Gender Information Value Date Recorded Sex Assigned at Not on file 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 Gender Identity Not on file Sexual Orientation Not on file documented as of this encounter Plan of Treatment Not on file documented as of this encounter Visit Diagnoses Not on filedocumented in this encounter Care Teams Health And Wellness Director Relationship Specialty Start Date End Date Braulio Child MD [address] [place] [address] PCP - General Family Medicine 01/26/20 Nicole Prather RPh [address] [place] [address] Pharmacist Pharmacy 07/07/24 07/13/24 Alvina Palencia MA [address] [place] [address] ACO Care Atg Architect 02/07/25 documented as of this encounter
--- OUTSIDE RECORDS SUMMARY | 2025-02-10 17:43 | XMS_ITS | Clinical Summary ---
Author Organization [facility] Address Formerly [facility] [place] [address] Care Team Providers Care Collar Baster Jumpbasting Name Role Phone None, Provider MD Primary Care Provider Unavaila ble Allergies No known active allergies Medications HYDROcodone-nikko taminophen (NORCO) 5-325 MG tabletIndicatio ns:Acute Pain < 3 Day Supply Take 1 tablet by mouth every 6 (six) hours as needed. Indications: Acute Pain < 3 Day Supply 10 tablet 01/19/2020 Active cyclobenzaprine 10 MG tablet Take 0.5 tablets (5 mg total) by mouth 3 (three) times daily as needed. 20 tablet 01/19/2020 Active Social History Tobacco Use Types Packs/Day Years Used Date Smoking Tobacco: Never Smokeless Tobacco: Never Alcohol Use Standard Drinks/Week Comments Not Currently 0 (1 standard drink = 0.6 oz pur e alcohol) Sex and Gender Information Value Date Recorded Sex Assigned at Not on file Legal Sex Male 2:57 PM CDT Gender Identity Not on file Sexual Orientation Not on file Last Filed Vital Signs Vital Sign Reading Time Taken Comments Blood Pressure 155/104 01/19/2020 6:50 PM CDT Pulse 69 01/19/2020 6:50 PM CDT Temperature 36.4 C (97.6 F) 01/19/2020 3:04 PM CDT Respiratory Rate 16 01/19/2020 6:50 PM CDT Oxygen Saturation 98% 01/19/2020 6:50 PM CDT Inhaled Oxygen Concentration - - Weight 77.1 kg (170 lb) 01/19/2020 3:04 PM CDT Height 182.9 cm (6') 01/19/2020 3:04 PM CDT Body Mass Index 23.06 01/19/2020 3:04 PM CDT Plan of Treatment Health Maintenance Due Date Last Done Comments Colorectal Cancer Screening Colonoscopy (10 Years) 1950 Hepatitis C 1968 DTaP, Tdap and Td Vaccines ( 1 - Tdap) 1969 Pneumococcal Vaccine: 50+ Ye ars (1 of 1 - PCV) 2000 Zoster Vaccines (1 of 2) 2000 Annual Medicare Wellness Visit 2015 COVID-19 Vaccine (1 - 2023-2 5 season) 2024 RSV Immunization or 60+ Years (1 - 1-dose 75+ series) 2025 Meningococcal B Vaccine Aged Out No l onger eligible based on patient's age to complete this topic Meningococcal Vaccine Aged Out No cynthia leyla eligible based on patient's age to complete this topic RSV Immunizations Under 20 Months Aged Out No longer eligible based on patient's age to complete this topic Insurance [facility] Care Teams Collar Baster Jumpbasting Relationship Specialty Start Date End Date None, Provider, PCP - General 01/19/20
--- OUTSIDE RECORDS SUMMARY | 2025-02-10 17:43 | XMS_ITS | Continuity of Care Document ---
Author Organization [facility] Address [address] [place] [address] Phone Care Team Providers Care Tire Adjuster Name Role Phone Derrick PT, DPT, James Unavailable Unavailable Procedures Procedure Date Therapeutic Exercise Neuromuscular Re-Ed Therapeutic Activities Therapeutic Activities Therapeutic Exercise Neuromuscular Re-Ed Therapeutic Activities Therapeutic Exercise Neuromuscular Re-Ed Therapeutic Activities Neuromuscular Re-Ed Therapeutic Exercise Therapeutic Activities Therapeutic Exercise Neuromuscular Re-Ed Therapeutic Activities Neuromuscular Re-Ed Therapeutic Exercise Neuromuscular Re-Ed Therapeutic Exercise Therapeutic Activities PT Evaluation High Complexity Therapeutic Activities Therapeutic Exercise Advance Directives Directive Yes / No Effective Date File Name No Information Encounters Encounter Description Practice Location Reason(s) For Visit Diagnoses Date Provider Providers Copied on Encounter [facility], [address] [address], [place], [place], [id number], tel:[phone] [place] No Information Derrick Ramirez. . [facility], [address] [facility] [address], [place], [place], [id number], tel:[phone] [place] No Information 1 Derrick Ramirez. . Referring Provider: Saul Jain [address], [place], [address]. tel:[phone] [facility], [place], [place], [id number], [place] tel:[phone] [place] No Information 1 Yair Lawrencen. , [place], [place]. Referring Provider: Saul Jain [address], [place], [address]. tel:[phone] [facility], [address], [place], [place], [id number], [place] tel:[phone] [place] No Information 1 Yair Lawrencen. , [place], [place]. Referring Provider: Saul Jain [address], [place], [address]. tel:[phone] [facility], [place], [place], [id number], [place] tel:[phone] [place] No Information 1 Yair Lawrencen. , [place]. Referring Provider: Saul Jain [address], [place], [address]. tel:[phone] [facility], [place], [place], [id number], [place] tel:[phone] [place] No Information 1 Mazariegos Nico. , [place], [place]. Referring Provider: Saul Jain [address], [place], [address]. tel:[phone] [facility], [place], [place], [address], [place] tel:[phone] [place] No Information 1 Yair Lawrencen. , [place], [place]. Referring Provider: Saul Jain [address], [place], [address]. tel:[phone] [facility], [address] [facility] [address], [place], [place], [id number], tel:[phone] [place] No Information 1 Yair [place], . Referring Provider: Saul Jain [address], [place], [address]. tel:[phone] [facility], [address] [facility] [address], [place], [place], [address], tel:[phone] [place] No Information 1 Yair [place], . Referring Provider: Saul Jain N [facility], [place], [address]. tel:[phone] Family History Family Member Type Diagnosis Age At Onset No Information Payers Payer name Insurance type Covered alliance party ID Authorglenysa irena(s) [facility] [id number] [employer] [id number] [facility] Payer [facility] [id number] Social History Type Description Quantity Date Captured Comments Sex Male Smoking Status No Information Chief Complaint And Reason For Visit No Information Reason For Referral Reason For Referral No Information History Of Present Illness Encounter Date Complaint History Of Prese nt Illness No Information Functional Status Date Functional Assessmen t No Information Instructions Date Instruction Additional Infor mation No Information Assessments Type Assessment Date No Information Patient Care Teams Name Effective Dates (start - stop) Status Members No Information
--- OUTSIDE RECORDS SUMMARY | 2025-02-10 17:43 | XMS_ITS | Clinical Summary ---
Author Organization [facility] [address] [facility] Address [address] [facility] [place] [address] Care Team Providers Care Gallery Intern Name Role Phone Braulio Child MD Primary Care Provider [phone] Alvina Palencia MA Unavailable Allergies No known active allergies Medications glipiZIDE [...] 09/27/2024 blood-glucose meter (Contour Next EZ Meter) [facility] USE TO CHECK BLOOD GLUCOSE 3 (THREE) [...] by mouth daily as needed 5 02/20/20 25 Active Active Problems Problem Noted Date Diagnosed Date Type 2 diabetes mellitus with hyperlipidemia Assessment & Plan (09/27/2024 10:25 AM FLOATING DERRICK OPERATOR): Resuming statin medication and will follw oresponse. ENcourage healthy food chocies. Prostate cancer screening 09/27/2024 Assessment & Plan (09/27/2024 10:25 AM FLOATING DERRICK OPERATOR): PSA pending. No hematuria, no nocturai. Type 2 diabetes mellitus wit h diabetic neuropathy, without long-term current use of insulin 09/27/2024 Annual physical exam 09/27/2024 Encounter for screening colonoscopy 03/28/2020 Overview (03/28/2020): Added automatically from request for surgery [id number] Chronic midline low back pain without sciatica 0 02/14/2020 Male erectile disorder 01/26/2020 Diabetic polyneuropathy asso ciated with type 2 diabetes mellitus 01/26/2020 Assessment & Plan (09/27/2024 10:24 AM FLOATING DERRICK OPERATOR): NO opne wounds/sores. WIll follow repsonse. Reivewed import of glycmie cocntro cynthia comorbidities. Hyperlipidemia 01/26/2020 Essential hypertension 01/26/2020 Type 2 diabetes mellitus wit h diabetic neuropathy, with long-term current use of insulin 01/26/2020 Assessment & Plan (09/27/2024 10:24 AM FLOATING DERRICK OPERATOR): Uptitration of lantus and will follow response. Reivewd improt of glycemic control. Denies any hypoglycemic episodes. Screening for malignant neoplasm of prostate Gastroesophageal reflux disease without esophagi tis 01/26/2020 Assessment & Plan (09/27/2024 10:24 AM FLOATING DERRICK OPERATOR): Stable on PPI and will montior response. NO dysphagia, no blood int eh stools, no melena. Encounters Date Type Department Care Team Description 02/07/2025 ACO Outreach [facility] [address] [address] Alvina Palencia MA 02/07/2025 ELIS IP Outreach [address] [address] Alvina Palencia MA 01/26/[address] [address] Mayra Hoyt Unsuccessful Phone Call 1 (Essence dm eye ) 01/17/2025 ACO Quality [facility] Organization [address] [place] [address] Renee Mclain 11/30/[address] [facility] Primary [facility] at [address] [address] Braulio Child MD from Last 3 Months Immunizations Immunization Administration Dates Next Due Influenza, Unspecified 09/27/2024(Deferr ed: Patient Refused),09/28/2023(Deferred: Patient Refused),09/28/2022(Deferred: Patient Refused),12/13/2021(Deferred: Patient Refused),06/28/2021(Deferred: Patient Refused),10/15/2020(Deferred: Patient Refused),06/28/2020(Deferred: Patient Refused),06/28/2020(Deferred: Patient Refused),09/28/2019(Deferred: Patient Refused),06/28/2019(Deferred: Patient Refused),06/28/2018(Deferred: Patient Refused) Pneumococcal Conjugate PCV 13 12/19/2020 Tdap 12/19/2020 Medical History Medical History Date Comments Diabetes mellitus (HCC) Family History Relation Name Status Comments Father (Age 68) Mother (Age 103) Social History Tobacco Use Types Packs/Day Years Used Date Smoking Tobacco: Never Smokeless Tobacco: Never Tobacco Cessation:Counseling Given: No PHQ-2 Answer Date Recorded PHQ-2 Total Score (If total score is 3 or more points, staff should administer the PHQ-9) 0 09/27/2024 Sex and Gender Information Value Date Recorded Sex Assigned at Not on file Legal Sex Male 8:00 PM FLOATING DERRICK OPERATOR Gender Identity Not on file Sexual Orientation Not on file Obstetrics History Last Filed Vital Signs Vital Sign Reading Time Taken Comments Blood Pressure 132/74 09/27/2024 10:04 AM FLOATING DERRICK OPERATOR Pulse 78 09/27/2024 10:04 AM FLOATING DERRICK OPERATOR Temperature 36.8 C (98.2 F) 09/27/2024 10:04 AM FLOATING DERRICK OPERATOR Respiratory Rate 17 03/24/2022 8:38 AM CDT Oxygen Saturation 98% 09/27/2024 10:04 AM FLOATING DERRICK OPERATOR Inhaled Oxygen Concentration - - Weight 72.3 kg (159 lb 4.8 oz) 09/27/2024 10:04 AM FLOATING DERRICK OPERATOR Height 182.9 cm (6') 09/27/2024 10:04 AM FLOATING DERRICK OPERATOR Body Mass Index 21.6 09/27/2024 10:04 AM FLOATING DERRICK OPERATOR Plan of Treatment Health Maintenance Due Date Last Done Comments Colon Cancer Screening-DNA Stool 1950 Hepatitis C Screening 1950 Hepatitis B Screening 1968 Zoster Vaccine (1 of 2) 2000 Pneumococcal vaccine 65+ (2 of 2 - PPSV23) 02/13/2021 12/19/2020 Foot Exam 08/28/2022 08/28/2021, 01/26/2020 Influenza Vaccine (Season Ended) 2025 Hemoglobin A1C 08/06/2025 02/03/2025, 08/30, 03/22/2024, Additional history exists Dilated Eye Exam 09/05/2025 09/05/2024, 04/2024, 07/07/2024, Additional history exists Albumin Creatinine Ratio, Urine 09/27/2025 09/27/2024, 09/15/2023, 12/13/2021, Additional history exists Depression Screening 09/27/2025 09/27/2024, 03/22/2024, 09/15/2023, Additional history exists Fall Risk Assessment 09/27/2025 09/27/2024, 03/22/2024, 09/15/2023, Additional history exists Lipid Panel 09/27/2025 09/27/2024, 02/27, 09/15/2023, Additional history exists Well Visit 65+ 09/27/2025 09/27/2024, 09/15/2023 eGFR 09/27/2025 09/27/2024, 02/27, 09/15/2023, Additional history exists DTaP/Tdap/Td Vaccine (2 - Td or Tdap) 12/19/2030 12/19/2020 Procedures Procedure Name Priority Date/Time Associated Diagnosis Comments EGFR Routine 09/27/2024 1:38 PM FLOATING DERRICK OPERATOR Type 2 diabetes mellitus with diabetic neuropathy, without long-term current use of insulin (HCC) HEMOGLOBIN A1C Routine 09/27/2024 1:38 PM FLOATING DERRICK OPERATOR Type 2 diabetes mellitus with diabetic neuropathy, without long-term current use of insulin (HCC) LIPID PANEL Routine 09/27/2024 1:38 PM FLOATING DERRICK OPERATOR Type 2 diabetes mellitus with diabetic neuropathy, without long-term current use of insulin (HCC) ALBUMIN CREATININE RATIO, URINE Routine 09/27/2024 1:38 PM FLOATING DERRICK OPERATOR Type 2 diabetes mellitus with diabetic neuropathy, without long-term current use of insulin (HCC) DIABETIC EYE EXAM Routine 09/05/2024 11: 34 AM FLOATING DERRICK OPERATOR from Last 3 Months or Most Recently Relevant to Health Maintenance Results * (ABNORMAL) eGFR (09/27/2024 1:38 PM FLOATING DERRICK OPERATOR) eGFR 55(L) >=60 mL/min/1. 73 m2 Comment: [...] of Race in Diagnosing Kidney Disease, JASN 2020). The CKD-EPI equation should not be used for patients with unstable renal function and has not been validated in children and those over 70. Current interpretive data was last reviewed 2021. Blood 09/27/2024 1:38 PM FLOATING DERRICK OPERATOR 09/27/2024 7:16 PM FLOATING DERRICK OPERATOR us Braulio Child MD LAB BLOOD ORDERAB[place] [address] [address] [place] [address] * (ABNORMAL) Albumin Creatinine Ratio, Urine (09/27/2024 1:38 PM FLOATING DERRICK OPERATOR) Albumin Ur 268.3 mg/L Comment: Interpretive Data No reference range established. Current interpretive data was last revised 2019. Creatinine Ur 127.2 mg/dL [facility] SU Comment: Interpretive Data No reference range established. Current interpretive data was last revised 2019. Albumin Creatinine Ratio, Ur 211(H) 1 - 29 mg/g [facility] Urine 09/27/2024 1:38 PM FLOATING DERRICK OPERATOR 09/27/2024 7:13 PM FLOATING DERRICK OPERATOR us Braulio Child MD LAB URINE ORDERABLES Elaina farideh Result [facility] [address] [address] Department [place] [address] * (ABNORMAL) Lipid panel (09/27/2024 1:38 PM FLOATING DERRICK OPERATOR) Cholesterol 315(H) 30 - 199 mg/dL Comment: [...] revised on 2018. Triglycerides 305(H) <=149 mg/dL [place] Comment: Interpretive Data Ages < or = [...] on 2018. HDL 48 >=40 mg/dL [place] Comment: Interpretive Data Ages < or = [...] on 2024. Non-HDL Cholesterol 267 mg/dL [place] Comment: Interpretive Data Ages < or = [...] revised on 2018. Chol/HDL ratio 7 [facility] Blood 09/27/2024 1:38 PM FLOATING DERRICK OPERATOR 09/27/2024 7:13 PM FLOATING DERRICK OPERATOR us Braulio Child MD LAB BLOOD ORDERAB[place] [address] [address] [place] [address] * (ABNORMAL) Diabetic Eye Exam (09/05/2024 11:34 AM FLOATING DERRICK OPERATOR) us Historical Provider HEALTH MAINTENANCE Final Result from Last 3 Months or Most Recently Relevant to Health Maintenance Insurance [facility] Care Teams Gallery Intern Relationship Specialty Start Date End [place] [address] PCP - General Family Medicine 01/26/20 Alvina Palencia MA [address] [place] [address] [place] [address] ACO Care Cloth Hauler 02/07/25
--- NOTE | 2025-02-10 18:11 | ED.GENADULT ---
HPI - General Adult General Chief complaint: Back Pain/Injury <Irma Agee, [employer] - Last Filed: 02/10/25 20:01> Stated complaint: Low Back pain-recent spinal fx's <Irma Agee, [employer] - Last Filed: 02/10/25 20:01> Time Seen by Provider: 02/10/25 18:11 <Irma Nails January, [employer] - Last Filed: 02/10/25 20:01> Focused HPI: Slade Barber is a 74 y/o male who presents today with complaints that he needs to go to a [place] for Rehab, he cant take care of himself and his cant take care of him, she can't drive . 1 week ago today he fell off of his ladder over 10 feet onto a beam and went to [facility] and he states he has a few broken vertebrae to thoracic spine, he states something is wrong with his neck and 3 broken ribs and he did not want to have surgery while he was at [facility] and they d/c him home on Thursday . He states he can't get around safely at home. Poor PO intake and states pain is not controlled. He has a back brace on and CC in place GENERAL: appears disheveled HEAD: Normocephalic, atraumatic. CHEST: Clear to auscultation. ?No respiratory distress. HEART: Regular rate and rhythm.? NEURO: ?Alert and oriented x3. Patient screened in triage and initial orders placed.? ?Additional care and disposition to be based upon?diagnostic testing and treatment. <Irma Agee, [employer] - Last Filed: 02/10/25 20:01> Source: patient <Cat Gonzales PA-C - Last Filed: 02/11/25 03:54> Mode of arrival: EMS <Cat Gonzales PA-C - Last Filed: 02/11/25 03:54> Limitations: no limitations <Cat Gonzales PA-C - Last Filed: 02/11/25 03:54> History of Present Illness HPI narrative: Agree with above HPI. Patient reports multiple rib fractures, right clavicular fracture, neck fracture, thoracic fractures. In [place] collar, TLSO brace. Denies any new injury whatsoever. Denies worsening or new pain. Denies difficulty breathing/SOB. Denies numbness, focal weakness, saddle anesthesia, bowel/bladder incontinence. <Cat Gonzales PA-C - Last Filed: 02/11/25 03:54> Related Data Allergies/adverse reactions: Allergies Allergy/AdvReac Type Severity Reaction Status Date / Time No Known Allergies Allergy Verified 02/10/25 17:41 <Irma Agee, [employer] - Last Filed: 02/10/25 20:01> Review of Systems Review of Systems: All systems reviewed & are unremarkable except as noted in HPI. <Cat Gonzales PA-C - Last Filed: 02/11/25 03:54> All systems reviewed & are unremarkable except as noted in HPI and below <Cat Gonzales PA-C - Last Filed: 02/11/25 03:54> [facility] Past Medical History Medical History: Medical History History of hyperlipidemia History of diabetes mellitus <Irma Nails January, [employer] - Last Filed: 02/10/25 20:01> Social History Social History: Social History Substance use: never <Irma Nails January, [employer] - Last Filed: 02/10/25 20:01> Exam Narrative: GENERAL: Elderly, frail/disheveled, non-toxic, in no acute distress. HEAD: Normocephalic, atraumatic. ENT: MMs very dry. NECK: [place] collar in place. RESPIRATORY: Airway patent, respirations nonlabored. Clear to auscultation bilaterally, no rales, rhonchi, wheezing. No increased work of breathing. Speaking in full sentences. CARDIOVASCULAR: Regular rate and rhythm without murmurs, rubs, or gallops. MUSCULOSKELETAL: No gross deformities. No weakness of lower extremities. TLSO brace in place. SKIN: Warm, dry, normal color. NEURO: A&O X3. Speech clear. Cranial nerves II-XII grossly intact. No ataxic movements. No focal deficits. PSYCHIATRIC: Appropriate mood and affect. Normal interaction. <Cat Gonzales PA-C - Last Filed: 02/11/25 03:54> Course INSULATION CUTTER/PA Physician Supervision Patient care signed out to me by previous provider. Repeat BMP after hydration shows correction of his anion gap acidosis consistent with starvation ketoacidosis rather than complication of diabetes as his blood sugar was not that high. Patient re-evaluated and doing well. He is tolerating oral intake and has no complaints at this time. Discussed the case with the hospitalist who accepted the patient to admission here for continued hydration, rehabilitation and likely placement. Family members made aware of the plan and comfortable. Admission orders placed. <Rolando Barnhart MD - Last Filed: 02/11/25 06:44> Vital Signs Vital signs: Vital Signs Temperature 36.2 C L 02/10/25 18:16 Pulse Rate 85 02/10/25 18:16 Respiratory Rate 16 02/10/25 18:16 Blood Pressure 135/70 02/10/25 18:16 Pulse Oximetry 99 02/10/25 18:16 Oxygen Delivery Room Air 02/10/25 18:16 Temperature 36.4 C 02/10/25 22:40 Pulse Rate 82 02/10/25 22:40 Respiratory Rate 16 02/10/25 22:40 Blood Pressure 145/89 H 02/10/25 22:40 Pulse Oximetry 99 02/10/25 22:40 Oxygen Delivery Room Air 02/10/25 18:16 <Irma Agee APRN - Last Filed: 02/10/25 20:01> Vital Signs Temperature 36.2 C L 02/10/25 18:16 Pulse Rate 85 02/10/25 18:16 Respiratory Rate 16 02/10/25 18:16 Blood Pressure 135/70 02/10/25 18:16 Pulse Oximetry 99 02/10/25 18:16 Oxygen Delivery Room Air 02/10/25 18:16 Temperature 36.4 C 02/10/25 22:40 Pulse Rate 82 02/10/25 22:40 Respiratory Rate 16 02/10/25 22:40 Blood Pressure 145/89 H 02/10/25 22:40 Pulse Oximetry 99 02/10/25 22:40 Oxygen Delivery Room Air 02/10/25 18:16 <Cat Gonzales PA-C - Last Filed: 02/11/25 03:54> Vital Signs Temperature 36.2 C L 02/10/25 18:16 Pulse Rate 85 02/10/25 18:16 Respiratory Rate 16 02/10/25 18:16 Blood Pressure 135/70 02/10/25 18:16 Pulse Oximetry 99 02/10/25 18:16 Oxygen Delivery Room Air 02/10/25 18:16 Temperature 36.4 C 02/10/25 22:40 Pulse Rate 82 02/10/25 22:40 Respiratory Rate 16 02/10/25 22:40 Blood Pressure 145/89 H 02/10/25 22:40 Pulse Oximetry 99 02/10/25 22:40 Oxygen Delivery Room Air 02/10/25 18:16 <Rolando Barnhart MD - Last Filed: 02/11/25 06:44> Medical Decision Making MDM Narrative Medical decision making narrative: Patient presented to ED with concern for inability to care for himself at home. expressing need for patient to be placed in acute rehab. Patient is around 1 week status post trauma, seen at [facility] at that time. Official records were requested from [facility]. reports multiple injuries including cervical, thoracic fractures, rib fractures, clavicular fracture. Patient was discharged back to home without PT/OT/rehab/home health. having difficulty caring for him. Patient denies any new injuries. There is no evidence of cord compression or cauda equina. Vital signs are stable upon arrival. Patient does report pain, but denies any new or different pain than what he has been dealing with. Laboratory studies were obtained and showing white blood cell count of 16.1. Neutrophil predominance. No bandemia. CMP with numerous abnormalities, bicarb 14, anion gap of 25. BUN 33, creatinine 1.31. No records to compare to. Blood sugar is 280. Patient does report history of diabetes. Is on metformin, insulin therapy. He does admit to significant decreased p.o. intake. Has not been eating or drinking much. Beta hydroxybutyrate is elevated to 5.0, though I am suspicious for starvation ketosis versus DKA. UA with 4+ ketones, no signs of infection. Viral swabs are negative. Chest x-ray interpreted by myself without evidence of focal consolidation. Patient given 2 L of fluid in the ED. Will repeat BMP after fluids and obtain VBG. Patient will need medical admission for further evaluation of dehydration/hyperglycemia, as well as care coordination consult for acute rehab placement. Discussed case with Vee TAYLOR, hospitalist, will re-discuss after repeat labs. Care signed out to Dr. Barnhart at shift change pending repeat labs and discussion with hospitalist. <Cat Gonzales PA-C - Last Filed: 02/11/25 03:54> Medical Records Medical records reviewed: Yes I reviewed the external patient's medical records. <Cat Gonzales PA-C - Last Filed: 02/11/25 03:54> Vital Signs Vital Signs: Vital Signs Temperature 36.2 C L 02/10/25 18:16 Pulse Rate 85 02/10/25 18:16 Respiratory Rate 16 02/10/25 18:16 Blood Pressure 135/70 02/10/25 18:16 Pulse Oximetry 99 02/10/25 18:16 Oxygen Delivery Room Air 02/10/25 18:16 Temperature 36.4 C 02/10/25 22:40 Pulse Rate 82 02/10/25 22:40 Respiratory Rate 16 02/10/25 22:40 Blood Pressure 145/89 H 02/10/25 22:40 Pulse Oximetry 99 02/10/25 22:40 Oxygen Delivery Room Air 02/10/25 18:16 <rIma Agee, [employer] - Last Filed: 02/10/25 20:01> Vital Signs Temperature 36.2 C L 02/10/25 18:16 Pulse Rate 85 02/10/25 18:16 Respiratory Rate 16 02/10/25 18:16 Blood Pressure 135/70 02/10/25 18:16 Pulse Oximetry 99 02/10/25 18:16 Oxygen Delivery Room Air 02/10/25 18:16 Temperature 36.4 C 02/10/25 22:40 Pulse Rate 82 02/10/25 22:40 Respiratory Rate 16 02/10/25 22:40 Blood Pressure 145/89 H 02/10/25 22:40 Pulse Oximetry 99 02/10/25 22:40 Oxygen Delivery Room Air 02/10/25 18:16 <Cat Gonzales PA-C - Last Filed: 02/11/25 03:54> Vital Signs Temperature 36.2 C L 02/10/25 18:16 Pulse Rate 85 02/10/25 18:16 Respiratory Rate 16 02/10/25 18:16 Blood Pressure 135/70 02/10/25 18:16 Pulse Oximetry 99 02/10/25 18:16 Oxygen Delivery Room Air 02/10/25 18:16 Temperature 36.4 C 02/10/25 22:40 Pulse Rate 82 02/10/25 22:40 Respiratory Rate 16 02/10/25 22:40 Blood Pressure 145/89 H 02/10/25 22:40 Pulse Oximetry 99 02/10/25 22:40 Oxygen Delivery Room Air 02/10/25 18:16 <Rolando Barnhart MD - Last Filed: 02/11/25 06:44> Lab Data Lab results reviewed: Yes I reviewed the patient's lab results. <Cat Gonzales PA-C - Last Filed: 02/11/25 03:54> Result diagrams: 02/10/25 22:12 02/11/25 04:10 <Irma Agee APRN - Last Filed: 02/10/25 20:01> Labs: Lab Results 02/10/25 02/11/25 02/11/25 Range/Units 22:12 01:15 01:16 WBC 16.1 H (4.5-10.0) K/mm3 RBC 5.03 (4.6-6.20) M/mm3 Hgb 14.5 (14.0-18.0) g/dL Hct 44.3 (42.0-52.0) % MCV 88.1 (80-100) fl MCH 28.8 (26-34) pg MCHC 32.7 (32-36) g/dl RDW 13.8 (11.5-14.5) % Plt Count 335 (150-375) k/mm3 MPV 10.0 (7.4-10.4) fl Immature Gran % (Auto) 1.9 H (0-0.5) % Neut % (Auto) 82.4 H (45.5-73.1) % Lymph % (Auto) 8.4 L (18.3-44.2) % [place] % (Auto) 6.1 (2.6-8.5) % Eos % (Auto) 0.2 (0-4.4) % Baso % (Auto) 1.0 (0.2-1.2) % Lymph # (Auto) 1.35 (0.9-3.2) K/mm3 [place] # (Auto) 1.0 H (0.1-0.6) K/mm3 Eos # (Auto) 0.0 (0-0.3) K/mm3 Baso # (Auto) 0.2 H (0.0-0.1) K/mm3 Abs Immat Gran (auto) 0.30 H (0.00-0.031) K/mm3 Absolute Neuts (auto) 13.3 H (1.3-6.7) K/mm3 Absolute Nucleated RBC 0.000 (0.0-0.012) K/mm3 Nucleated RBC % 0.0 (0.0-0.2) % Sodium 138 (137-145) mmol/L Potassium 4.7 (3.4-5.0) mmol/L Chloride 99 (98-107) mmol/L Carbon Dioxide 14 L (22-30) mmol/L Anion Gap 25 H (4-12) mmol/L BUN 33 H (9-20) mg/dL Creatinine 1.31 H (0.7-1.3) mg/dL Estim Creat Clear Calc 47 ml/min Estimated GFR 53 L (59 - ) Glucose 280 H (65-110) mg/dL Calcium 10.1 (8.4-10.2) mg/dL Magnesium 2.1 (1.6-2.3) mg/dL Total Bilirubin 1.0 (0.2-1.3) mg/dL AST 32 (17-59) U/L ALT 29 (6-50) U/L Alkaline Phosphatase 121 (38-126) U/L Total Protein 7.0 (6.3-8.2) g/dL Albumin 4.0 (3.5-5.1) g/dL Beta-Hydroxybutyrate/Acetoacetate 5.00 H (0.02-0.27) mmol/L Urine Color Yellow (Yellow) Urine Appearance Clear (Clear) Urine pH 5.0 (5.0-9.0) Ur Specific [place] 1.025 (1.001-1.035) Urine Protein 2+ H (Negative) mg/dL Urine Glucose (UA) 3+ H (Negative) mg/dL Urine Ketones 4+ H (Negative) mg/dL Ur Blood (Man) Negative (Negative) Urine Nitrate Negative (Negative) Urine Bilirubin Negative (Negative) Urine Urobilinogen 1.0 (<2.0) mg/dL Add Ur Microanalysis Reviewed Leukocyte Esterase Rfl Negative (Negative) NEELAM/UL Urine RBC 0-2 (0-2) /hpf Urine WBC 0-5 (0-3) /hpf Ur Squamous Epith Cells None seen (Few) /hpf Urine Bacteria None seen /hpf Urine Casts >20 Influenza A (RT-PCR) Negative (Negative) Influenza B (RT-PCR) Negative (Negative) RSV (RT-PCR) Negative (Negative) SARS-CoV-2 RNA (RT-PCR) Negative (Negative) 02/11/25 Range/Units 04:10 WBC (4.5-10.0) K/mm3 RBC (4.6-6.20) M/mm3 Hgb (14.0-18.0) g/dL Hct (42.0-52.0) % MCV (80-100) fl MCH (26-34) pg MCHC (32-36) g/dl RDW (11.5-14.5) % Plt Count (150-375) k/mm3 MPV (7.4-10.4) fl Immature Gran % (Auto) (0-0.5) % Neut % (Auto) (45.5-73.1) % Lymph % (Auto) (18.3-44.2) % [place] % (Auto) (2.6-8.5) % Eos % (Auto) (0-4.4) % Baso % (Auto) (0.2-1.2) % Lymph # (Auto) (0.9-3.2) K/mm3 [place] # (Auto) (0.1-0.6) K/mm3 Eos # (Auto) (0-0.3) K/mm3 Baso # (Auto) (0.0-0.1) K/mm3 Abs Immat Gran (auto) (0.00-0.031) K/mm3 Absolute Neuts (auto) (1.3-6.7) K/mm3 Absolute Nucleated RBC (0.0-0.012) K/mm3 Nucleated RBC % (0.0-0.2) % Sodium 137 (137-145) mmol/L Potassium 4.4 (3.4-5.0) mmol/L Chloride 105 (98-107) mmol/L Carbon Dioxide 19 L (22-30) mmol/L Anion Gap 13 H (4-12) mmol/L BUN 36 H (9-20) mg/dL Creatinine 1.06 (0.7-1.3) mg/dL Estim Creat Clear Calc 57 ml/min Estimated GFR > 60 (59 - ) Glucose 216 H (65-110) mg/dL Calcium 8.6 (8.4-10.2) mg/dL Magnesium (1.6-2.3) mg/dL Total Bilirubin (0.2-1.3) mg/dL AST (17-59) U/L ALT (6-50) U/L Alkaline Phosphatase (38-126) U/L Total Protein (6.3-8.2) g/dL Albumin (3.5-5.1) g/dL Beta-Hydroxybutyrate/Acetoacetate (0.02-0.27) mmol/L Urine Color (Yellow) Urine Appearance (Clear) Urine pH (5.0-9.0) Ur Specific [place] (1.001-1.035) Urine Protein (Negative) mg/dL Urine Glucose (UA) (Negative) mg/dL Urine Ketones (Negative) mg/dL Ur Blood (Man) (Negative) Urine Nitrate (Negative) Urine Bilirubin (Negative) Urine Urobilinogen (<2.0) mg/dL Add Ur Microanalysis Leukocyte Esterase Rfl (Negative) NEELAM/UL Urine RBC (0-2) /hpf Urine WBC (0-3) /hpf Ur Squamous Epith Cells (Few) /hpf Urine Bacteria /hpf Urine Casts Influenza A (RT-PCR) (Negative) Influenza B (RT-PCR) (Negative) RSV (RT-PCR) (Negative) SARS-CoV-2 RNA (RT-PCR) (Negative) <Irma Agee, [employer] - Last Filed: 02/10/25 20:01> Lab Results 02/10/25 02/11/25 02/11/25 Range/Units 22:12 01:15 01:16 WBC 16.1 H (4.5-10.0) K/mm3 RBC 5.03 (4.6-6.20) M/mm3 Hgb 14.5 (14.0-18.0) g/dL Hct 44.3 (42.0-52.0) % MCV 88.1 (80-100) fl MCH 28.8 (26-34) pg MCHC 32.7 (32-36) g/dl RDW 13.8 (11.5-14.5) % Plt Count 335 (150-375) k/mm3 MPV 10.0 (7.4-10.4) fl Immature Gran % (Auto) 1.9 H (0-0.5) % Neut % (Auto) 82.4 H (45.5-73.1) % Lymph % (Auto) 8.4 L (18.3-44.2) % [place] % (Auto) 6.1 (2.6-8.5) % Eos % (Auto) 0.2 (0-4.4) % Baso % (Auto) 1.0 (0.2-1.2) % Lymph # (Auto) 1.35 (0.9-3.2) K/mm3 [place] # (Auto) 1.0 H (0.1-0.6) K/mm3 Eos # (Auto) 0.0 (0-0.3) K/mm3 Baso # (Auto) 0.2 H (0.0-0.1) K/mm3 Abs Immat Gran (auto) 0.30 H (0.00-0.031) K/mm3 Absolute Neuts (auto) 13.3 H (1.3-6.7) K/mm3 Absolute Nucleated RBC 0.000 (0.0-0.012) K/mm3 Nucleated RBC % 0.0 (0.0-0.2) % Sodium 138 (137-145) mmol/L Potassium 4.7 (3.4-5.0) mmol/L Chloride 99 (98-107) mmol/L Carbon Dioxide 14 L (22-30) mmol/L Anion Gap 25 H (4-12) mmol/L BUN 33 H (9-20) mg/dL Creatinine 1.31 H (0.7-1.3) mg/dL Estim Creat Clear Calc 47 ml/min Estimated GFR 53 L (59 - ) Glucose 280 H (65-110) mg/dL Calcium 10.1 (8.4-10.2) mg/dL Magnesium 2.1 (1.6-2.3) mg/dL Total Bilirubin 1.0 (0.2-1.3) mg/dL AST 32 (17-59) U/L ALT 29 (6-50) U/L Alkaline Phosphatase 121 (38-126) U/L Total Protein 7.0 (6.3-8.2) g/dL Albumin 4.0 (3.5-5.1) g/dL Beta-Hydroxybutyrate/Acetoacetate 5.00 H (0.02-0.27) mmol/L Urine Color Yellow (Yellow) Urine Appearance Clear (Clear) Urine pH 5.0 (5.0-9.0) Ur Specific [place] 1.025 (1.001-1.035) Urine Protein 2+ H (Negative) mg/dL Urine Glucose (UA) 3+ H (Negative) mg/dL Urine Ketones 4+ H (Negative) mg/dL Ur Blood (Man) Negative (Negative) Urine Nitrate Negative (Negative) Urine Bilirubin Negative (Negative) Urine Urobilinogen 1.0 (<2.0) mg/dL Add Ur Microanalysis Reviewed Leukocyte Esterase Rfl Negative (Negative) NEELAM/UL Urine RBC 0-2 (0-2) /hpf Urine WBC 0-5 (0-3) /hpf Ur Squamous Epith Cells None seen (Few) /hpf Urine Bacteria None seen /hpf Urine Casts >20 Influenza A (RT-PCR) Negative (Negative) Influenza B (RT-PCR) Negative (Negative) RSV (RT-PCR) Negative (Negative) SARS-CoV-2 RNA (RT-PCR) Negative (Negative) 02/11/25 Range/Units 04:10 WBC (4.5-10.0) K/mm3 RBC (4.6-6.20) M/mm3 Hgb (14.0-18.0) g/dL Hct (42.0-52.0) % MCV (80-100) fl MCH (26-34) pg MCHC (32-36) g/dl RDW (11.5-14.5) % Plt Count (150-375) k/mm3 MPV (7.4-10.4) fl Immature Gran % (Auto) (0-0.5) % Neut % (Auto) (45.5-73.1) % Lymph % (Auto) (18.3-44.2) % [place] % (Auto) (2.6-8.5) % Eos % (Auto) (0-4.4) % Baso % (Auto) (0.2-1.2) % Lymph # (Auto) (0.9-3.2) K/mm3 [place] # (Auto) (0.1-0.6) K/mm3 Eos # (Auto) (0-0.3) K/mm3 Baso # (Auto) (0.0-0.1) K/mm3 Abs Immat Gran (auto) (0.00-0.031) K/mm3 Absolute Neuts (auto) (1.3-6.7) K/mm3 Absolute Nucleated RBC (0.0-0.012) K/mm3 Nucleated RBC % (0.0-0.2) % Sodium 137 (137-145) mmol/L Potassium 4.4 (3.4-5.0) mmol/L Chloride 105 (98-107) mmol/L Carbon Dioxide 19 L (22-30) mmol/L Anion Gap 13 H (4-12) mmol/L BUN 36 H (9-20) mg/dL Creatinine 1.06 (0.7-1.3) mg/dL Estim Creat Clear Calc 57 ml/min Estimated GFR > 60 (59 - ) Glucose 216 H (65-110) mg/dL Calcium 8.6 (8.4-10.2) mg/dL Magnesium (1.6-2.3) mg/dL Total Bilirubin (0.2-1.3) mg/dL AST (17-59) U/L ALT (6-50) U/L Alkaline Phosphatase (38-126) U/L Total Protein (6.3-8.2) g/dL Albumin (3.5-5.1) g/dL Beta-Hydroxybutyrate/Acetoacetate (0.02-0.27) mmol/L Urine Color (Yellow) Urine Appearance (Clear) Urine pH (5.0-9.0) Ur Specific [place] (1.001-1.035) Urine Protein (Negative) mg/dL Urine Glucose (UA) (Negative) mg/dL Urine Ketones (Negative) mg/dL Ur Blood (Man) (Negative) Urine Nitrate (Negative) Urine Bilirubin (Negative) Urine Urobilinogen (<2.0) mg/dL Add Ur Microanalysis Leukocyte Esterase Rfl (Negative) NEELAM/UL Urine RBC (0-2) /hpf Urine WBC (0-3) /hpf Ur Squamous Epith Cells (Few) /hpf Urine Bacteria /hpf Urine Casts Influenza A (RT-PCR) (Negative) Influenza B (RT-PCR) (Negative) RSV (RT-PCR) (Negative) SARS-CoV-2 RNA (RT-PCR) (Negative) <Cat Gonzales PA-C - Last Filed: 02/11/25 03:54> Lab Results 02/10/25 02/11/25 02/11/25 Range/Units 22:12 01:15 01:16 WBC 16.1 H (4.5-10.0) K/mm3 RBC 5.03 (4.6-6.20) M/mm3 Hgb 14.5 (14.0-18.0) g/dL Hct 44.3 (42.0-52.0) % MCV 88.1 (80-100) fl MCH 28.8 (26-34) pg MCHC 32.7 (32-36) g/dl RDW 13.8 (11.5-14.5) % Plt Count 335 (150-375) k/mm3 MPV 10.0 (7.4-10.4) fl Immature Gran % (Auto) 1.9 H (0-0.5) % Neut % (Auto) 82.4 H (45.5-73.1) % Lymph % (Auto) 8.4 L (18.3-44.2) % [place] % (Auto) 6.1 (2.6-8.5) % Eos % (Auto) 0.2 (0-4.4) % Baso % (Auto) 1.0 (0.2-1.2) % Lymph # (Auto) 1.35 (0.9-3.2) K/mm3 [place] # (Auto) 1.0 H (0.1-0.6) K/mm3 Eos # (Auto) 0.0 (0-0.3) K/mm3 Baso # (Auto) 0.2 H (0.0-0.1) K/mm3 Abs Immat Gran (auto) 0.30 H (0.00-0.031) K/mm3 Absolute Neuts (auto) 13.3 H (1.3-6.7) K/mm3 Absolute Nucleated RBC 0.000 (0.0-0.012) K/mm3 Nucleated RBC % 0.0 (0.0-0.2) % Sodium 138 (137-145) mmol/L Potassium 4.7 (3.4-5.0) mmol/L Chloride 99 (98-107) mmol/L Carbon Dioxide 14 L (22-30) mmol/L Anion Gap 25 H (4-12) mmol/L BUN 33 H (9-20) mg/dL Creatinine 1.31 H (0.7-1.3) mg/dL Estim Creat Clear Calc 47 ml/min Estimated GFR 53 L (59 - ) Glucose 280 H (65-110) mg/dL Calcium 10.1 (8.4-10.2) mg/dL Magnesium 2.1 (1.6-2.3) mg/dL Total Bilirubin 1.0 (0.2-1.3) mg/dL AST 32 (17-59) U/L ALT 29 (6-50) U/L Alkaline Phosphatase 121 (38-126) U/L Total Protein 7.0 (6.3-8.2) g/dL Albumin 4.0 (3.5-5.1) g/dL Beta-Hydroxybutyrate/Acetoacetate 5.00 H (0.02-0.27) mmol/L Urine Color Yellow (Yellow) Urine Appearance Clear (Clear) Urine pH 5.0 (5.0-9.0) Ur Specific [place] 1.025 (1.001-1.035) Urine Protein 2+ H (Negative) mg/dL Urine Glucose (UA) 3+ H (Negative) mg/dL Urine Ketones 4+ H (Negative) mg/dL Ur Blood (Man) Negative (Negative) Urine Nitrate Negative (Negative) Urine Bilirubin Negative (Negative) Urine Urobilinogen 1.0 (<2.0) mg/dL Add Ur Microanalysis Reviewed Leukocyte Esterase Rfl Negative (Negative) NEELAM/UL Urine RBC 0-2 (0-2) /hpf Urine WBC 0-5 (0-3) /hpf Ur Squamous Epith Cells None seen (Few) /hpf Urine Bacteria None seen /hpf Urine Casts >20 Influenza A (RT-PCR) Negative (Negative) Influenza B (RT-PCR) Negative (Negative) RSV (RT-PCR) Negative (Negative) SARS-CoV-2 RNA (RT-PCR) Negative (Negative) 02/11/25 Range/Units 04:10 WBC (4.5-10.0) K/mm3 RBC (4.6-6.20) M/mm3 Hgb (14.0-18.0) g/dL Hct (42.0-52.0) % MCV (80-100) fl MCH (26-34) pg MCHC (32-36) g/dl RDW (11.5-14.5) % Plt Count (150-375) k/mm3 MPV (7.4-10.4) fl Immature Gran % (Auto) (0-0.5) % Neut % (Auto) (45.5-73.1) % Lymph % (Auto) (18.3-44.2) % [place] % (Auto) (2.6-8.5) % Eos % (Auto) (0-4.4) % Baso % (Auto) (0.2-1.2) % Lymph # (Auto) (0.9-3.2) K/mm3 [place] # (Auto) (0.1-0.6) K/mm3 Eos # (Auto) (0-0.3) K/mm3 Baso # (Auto) (0.0-0.1) K/mm3 Abs Immat Gran (auto) (0.00-0.031) K/mm3 Absolute Neuts (auto) (1.3-6.7) K/mm3 Absolute Nucleated RBC (0.0-0.012) K/mm3 Nucleated RBC % (0.0-0.2) % Sodium 137 (137-145) mmol/L Potassium 4.4 (3.4-5.0) mmol/L Chloride 105 (98-107) mmol/L Carbon Dioxide 19 L (22-30) mmol/L Anion Gap 13 H (4-12) mmol/L BUN 36 H (9-20) mg/dL Creatinine 1.06 (0.7-1.3) mg/dL Estim Creat Clear Calc 57 ml/min Estimated GFR > 60 (59 - ) Glucose 216 H (65-110) mg/dL Calcium 8.6 (8.4-10.2) mg/dL Magnesium (1.6-2.3) mg/dL Total Bilirubin (0.2-1.3) mg/dL AST (17-59) U/L ALT (6-50) U/L Alkaline Phosphatase (38-126) U/L Total Protein (6.3-8.2) g/dL Albumin (3.5-5.1) g/dL Beta-Hydroxybutyrate/Acetoacetate (0.02-0.27) mmol/L Urine Color (Yellow) Urine Appearance (Clear) Urine pH (5.0-9.0) Ur Specific [place] (1.001-1.035) Urine Protein (Negative) mg/dL Urine Glucose (UA) (Negative) mg/dL Urine Ketones (Negative) mg/dL Ur Blood (Man) (Negative) Urine Nitrate (Negative) Urine Bilirubin (Negative) Urine Urobilinogen (<2.0) mg/dL Add Ur Microanalysis Leukocyte Esterase Rfl (Negative) NEELAM/UL Urine RBC (0-2) /hpf Urine WBC (0-3) /hpf Ur Squamous Epith Cells (Few) /hpf Urine Bacteria /hpf Urine Casts Influenza A (RT-PCR) (Negative) Influenza B (RT-PCR) (Negative) RSV (RT-PCR) (Negative) SARS-CoV-2 RNA (RT-PCR) (Negative) <Rolando Barnhart MD - Last Filed: 02/11/25 06:44> ABG Data ABG results: 02/11/25 03:57 VBG pH 7.307 VBG pCO2 36.7 L VBG pO2 27.9 L VBG HCO3 17.9 L O2 Delivery Device Room air O2 Liters/Min Not Reportable FiO2 21 <Irma Agee APRN - Last Filed: 02/10/25 20:01> 02/11/25 03:57 VBG pH 7.307 VBG pCO2 36.7 L VBG pO2 27.9 L VBG HCO3 17.9 L O2 Delivery Device Room air O2 Liters/Min Not Reportable FiO2 21 <Cat Gonzales PA-C - Last Filed: 02/11/25 03:54> 02/11/25 03:57 VBG pH 7.307 VBG pCO2 36.7 L VBG pO2 27.9 L VBG HCO3 17.9 L O2 Delivery Device Room air O2 Liters/Min Not Reportable FiO2 21 <Rolando Barnhart MD - Last Filed: 02/11/25 06:44> Imaging Data Attestation: I personally reviewed and interpreted this imaging study as follows: <Cat Gonzales PA-C - Last Filed: 02/11/25 03:54> My impression: CXR: No acute focal consolidation. Hypoinflation. TLSO brace. <Cat Gonzales PA-C - Last Filed: 02/11/25 03:54> Discharge Plan Discharge Clinical Impression: Dehydration, Unable to ambulate, Unable to care for self, Starvation ketoacidosis, Diabetes Fracture, thoracic vertebra Qualifiers: Encounter type: sequela Thoracic vertebra fracture level: unspecified thoracic vertebra Fracture type: closed Fracture morphology: unspecified fracture morphology Qualified Code(s): S22.009S - Unspecified fracture of unspecified thoracic vertebra, sequela <Irma Agee APRN - Last Filed: 02/10/25 20:01> Patient Disposition: Still a Patient <Irma Agee APRN - Last Filed: 02/10/25 20:01> Condition: Stable <Irma Agee [employer] - Last Filed: 02/10/25 20:01> Patient Language: Polish <Irma Agee - Last Filed: 02/10/25 20:01> Prescriptions: No Action cyclobenzaprine 10 mg tablet 10 mg PO TID PRN (Reason: muscle spasm) Qty: 14 0RF <Irma Nails January [employer] - Last Filed: 02/10/25 20:01> Follow-up/Referrals: Harms,Braulio Siddiqui M.D. [Primary Care Provider] - <Irma Agee [employer] - Last Filed: 02/10/25 20:01> Time of Disposition: 06:44 <Irma Agee APRN - Last Filed: 02/10/25 20:01> 06:44 <Cat Gonzales PA-C - Last Filed: 02/11/25 03:54> 06:44 <Rolando Barnhart MD - Last Filed: 02/11/25 06:44>
[2025-02-10 18:16] VITALS: BP 135/70; PULSE 85; RESP 16; TEMP 36.2; O2SAT 99
--- NOTE | 2025-02-10 19:28 | PC.NURSE ---
reports patients last dose of Oxycodone was at 1400, asking about getting additional pain meds
--- NOTE | 2025-02-10 19:39 | PC.NURSE ---
given emesis bag and wet washcloths
[2025-02-10 19:54] VITALS: BP 124/69; PULSE 84; RESP 18; TEMP 36.5; O2SAT 98
[2025-02-10] MEDS: oxyCODONE/ACETAMINOPHEN (*CRX) 5-325 MG TABLET 1 TABLET PO (19:54)
[2025-02-10 22:21] LABS: Basophils Absolute Auto 0.2 K/mm3 (0.0-0.1); Eosinophils Percent Auto 0.2 % (0-4.4); Hematocrit 44.3 % (42.0-52.0); Hemoglobin 14.5 g/dL (14.0-18.0); Immature Granulocyte Percent A 1.9 % (0-0.5); Lymphocytes Absolute Auto 1.35 K/mm3 (0.9-3.2); Lymphocytes Percent Auto 8.4 % (18.3-44.2); Mean Corpuscular HGB Conc 32.7 g/dl (32-36); Mean Corpuscular Hemoglobin 28.8 pg (26-34); Mean Corpuscular Volume 88.1 fl (80-100); Monocytes Percent Auto 6.1 % (2.6-8.5); Neutrophils Absolute Auto 13.3 K/mm3 (1.3-6.7); Neutrophils Percent Auto 82.4 % (45.5-73.1); Platelet Count Result 335 k/mm3 (150-375); Red Blood Count 5.03 M/mm3 (4.6-6.20); Red Cell Distribution Width 13.8 % (11.5-14.5); White Blood Count 16.1 K/mm3 (4.5-10.0)
[2025-02-10 22:30] LABS: Alanine Aminotransferase 29 U/L (6-50); Alkaline Phosphatase 121 U/L (38-126); Anion Gap 25 mmol/L (4-12); Aspartate Amino Transferase 32 U/L (17-59); Blood Urea Nitrogen 33 mg/dL (9-20); Calcium 10.1 mg/dL (8.4-10.2); Carbon Dioxide 14 mmol/L (22-30); Chloride 99 mmol/L (98-107); Estimated CRCL calculation 47 ml/min; Estimated Glomerular Filt Rate 53; Glucose 280 mg/dL (65-110); Potassium 4.7 mmol/L (3.4-5.0); Sodium 138 mmol/L (137-145)
[2025-02-10 22:40] VITALS: BP 145/89; PULSE 82; RESP 16; TEMP 36.4; O2SAT 99
--- NOTE | 2025-02-10 23:27 | PC.NURSE ---
Pt presents to ED c/o 01/05 lower back pain.Pt states he took oxycodone about two hours ago with relief. Pt had a fall and sustained neck, and lower back fracture last thursday and was DC 2 days ago. states she needs assistance with placement.
[2025-02-11] MEDS: SODIUM CHLORIDE 0.9% IV 1,000 ML 999 ML IV CONT ×2 (01:09→02:14)
[2025-02-11 01:31] LABS: Magnesium 2.1 mg/dL (1.6-2.3)
[2025-02-11 01:33] LABS: Add Urine Microscopic? YES; Appearance Urine Clear (Clear); Bacteria Urine None Seen /hpf; Bilirubin Urine Negative (Negative); Blood Urine Negative (Negative); Color Urine Yellow (Yellow); Glucose Urine UA 3+ mg/dL (Negative); Ketones Urine 4+ mg/dL (Negative); Leukocyte Esterase Ur Negative LEU/UL (Negative); Need Manual Microscopic Reviewed; Nitrate Urine Negative (Negative); Non Pathogenic Casts >20; Protein Urine 2+ mg/dL (Negative); RBC Urine 0-2 /hpf (0-2); Specific Grav Ur 1.025 (1.001-1.035); Squamous Epithelial Cell Urine None Seen /hpf (Few); WBC Urine 0-5 /hpf (0-3)
--- OUTSIDE RECORDS SUMMARY | 2025-02-11 01:51 | XMS_ITS | Clinical Summary ---
Author Organization [facility] Address [facility] [place] [address] Care Team Providers Care Shipyard Laborer Name Role Phone None, Provider MD Primary [...] patient's age to complete this topic Insurance [facility] Care Teams Shipyard Laborer Relationship Specialty Start Date End Date None, Provider, PCP - General 01/19/20
--- OUTSIDE RECORDS SUMMARY | 2025-02-11 01:51 | XMS_ITS | Continuity of Care Document ---
Author Organization [facility] Address [address] [facility] [address] [place] [address] Phone Care Team Providers Care Senior Maintenance Machinist Name Role Phone Derrick PT, DPT, James Unavailable Unavailable Procedures Procedure Date Therapeutic Exercise Therapeutic Activities Neuromuscular Re-Ed Neuromuscular Re-Ed Therapeutic Exercise Therapeutic Activities Therapeutic Exercise Therapeutic Activities Neuromuscular Re-Ed Therapeutic Activities Neuromuscular Re-Ed Therapeutic Exercise Therapeutic Activities Therapeutic Exercise Neuromuscular Re-Ed Therapeutic Activities Neuromuscular Re-Ed Therapeutic Exercise Therapeutic Activities Neuromuscular Re-Ed Therapeutic Exercise Therapeutic Exercise Therapeutic Activities PT Evaluation High Complexity Advance Directives Directive Yes / No Effective Date File Name No Information Encounters Encounter Description Practice Location Reason(s) For Visit Diagnoses Date Provider Providers Copied on Encounter [facility], [address] [address], [place], [place], [id number], tel:[phone] [place] No Information Derrick Ramirez. . [facility], [address] [facility] [address], [place], [place], [id number], tel:[phone] [place] No Information 1 Derrick Ramirez. . Referring Provider: Saul Jain [address], [place], [address]. tel:[phone] [facility], [place], [place], [id number], [place] tel:[phone] [place] No Information 1 Yair Lawrencen. , [place], [place]. Referring Provider: Saul Jain [address], [place], [address]. tel:[phone] [facility], [address], [place], [place], [id number], [place] tel:[phone] [place] No Information 1 Yair Lawrencen. , [place], [place]. Referring Provider: Saul Jain [address], [place], [address]. tel:[phone] [facility], [place], [place], [id number], [place] tel:[phone] [place] No Information 1 Yair Lawrencen. , [place], [place]. Referring Provider: Saul Jain [address], [place], [address]. tel:[phone] [facility], [place], [place], [id number], [place] tel:[phone] [place] No Information 1 Mazariegos Nico. , [place], [place]. Referring Provider: Saul Jain [address], [place], [address]. tel:[phone] [facility], [place], [place], [id number], [place] tel:[phone] [place] No Information 1 Yair Lawrencen. , [place], [place]. Referring Provider: Saul Jain [address], [place], [address]. tel:[phone] [facility], [address] [facility] [address], [place], [place], [id number], tel:[phone] [place] No Information 1 Yair [place], . Referring Provider: Saul Jain N [facility] [address], [place], [address]. tel:[phone] [facility], [address] [facility] [address], [place], [place], [id number], tel:[phone] [place] No Information 1 Yair Martinez [place], [place], . Referring Provider: Saul Jain N [address], [place], [address]. tel:[phone] Family History Family Member Type Diagnosis Age At Onset No Information Payers Payer name Insurance type Covered democrat ID Authorglenysa irena(s) [facility] [id number] [employer] [id number] [facility] Payer [facility] [id number] Social History Type Description Quantity Date Captured [...]
--- OUTSIDE RECORDS SUMMARY | 2025-02-11 01:51 | XMS_ITS | Clinical Summary ---
Author Organization [facility] [address] [facility] Address [address] [place] [address] Care Team Providers Care Log Scaler Name Role Phone Braulio Child MD Primary Care Provider [phone] Alvina Palencia MA Unavailable Allergies No known [...] hyperlipidemia Assessment & Plan (09/27/2024 10:25 AM MORTGAGE LOAN ASSISTANT): Resuming statin medication and will follw oresponse. ENcourage healthy food chocies. Prostate cancer screening 09/27/2024 Assessment & Plan (09/27/2024 10:25 AM MORTGAGE LOAN ASSISTANT): PSA pending. No hematuria, no nocturai. Type 2 diabetes mellitus wit h diabetic neuropathy, without long-term current use of insulin 09/27/2024 Annual physical exam 09/27/2024 Encounter for screening colonoscopy 03/28/2020 Overview (03/28/2020): Added automatically from request for surgery [id number] Chronic midline low back pain without sciatica 0 02/14/2020 Male erectile disorder 01/26/2020 Diabetic polyneuropathy asso ciated with type 2 diabetes mellitus 01/26/2020 Assessment & Plan (09/27/2024 10:24 AM MORTGAGE LOAN ASSISTANT): NO opne wounds/sores. WIll follow repsonse. Reivewed import of glycmie cocntro cynthia comorbidities. Hyperlipidemia 01/26/2020 Essential hypertension 01/26/2020 Type 2 diabetes mellitus wit h diabetic neuropathy, with long-term current use of insulin 01/26/2020 Assessment & Plan (09/27/2024 10:24 AM MORTGAGE LOAN ASSISTANT): Uptitration of lantus and will follow response. Reivewd improt of glycemic control. Denies any hypoglycemic episodes. Screening for malignant neoplasm of prostate Gastroesophageal reflux disease without esophagi tis 01/26/2020 Assessment & Plan (09/27/2024 10:24 AM MORTGAGE LOAN ASSISTANT): Stable on PPI and will montior response. NO dysphagia, no blood int eh stools, no melena. Encounters Date Type Department Care Team Description 02/07/2025 ACO Outreach [facility] Care [address] [address] Alvina Palencia MA 02/07/2025 ELIS IP Outreach [address] [address] Alvina Palencia MA 01/26/[address] [address] Mayra Hoyt Unsuccessful Phone Call 1 (Essence dm eye ) 01/17/2025 ACO [facility] Care Organization [address] [place] [address] Renee Mclain 11/30/[address] [facility] Primary Care at [address] [address] Braulio Child MD from Last [...] on file Legal Sex Male 8:00 PM MORTGAGE LOAN ASSISTANT Gender Identity Not on file Sexual Orientation Not on file Obstetrics History Last Filed Vital Signs Vital Sign Reading Time Taken Comments Blood Pressure 132/74 09/27/2024 10:04 AM MORTGAGE LOAN ASSISTANT Pulse 78 09/27/2024 10:04 AM MORTGAGE LOAN ASSISTANT Temperature 36.8 C (98.2 F) 09/27/2024 10:04 AM MORTGAGE LOAN ASSISTANT Respiratory Rate 17 03/24/2022 8:38 AM CDT Oxygen Saturation 98% 09/27/2024 10:04 AM MORTGAGE LOAN ASSISTANT Inhaled Oxygen Concentration - - Weight 72.3 kg (159 lb 4.8 oz) 09/27/2024 10:04 AM MORTGAGE LOAN ASSISTANT Height 182.9 cm (6') 09/27/2024 10:04 AM MORTGAGE LOAN ASSISTANT Body Mass Index 21.6 09/27/2024 10:04 AM MORTGAGE LOAN ASSISTANT Plan of Treatment Health Maintenance Due Date [...] Diagnosis Comments EGFR Routine 09/27/2024 1:38 PM MORTGAGE LOAN ASSISTANT Type 2 diabetes mellitus with diabetic neuropathy, without long-term current use of insulin (HCC) HEMOGLOBIN A1C Routine 09/27/2024 1:38 PM MORTGAGE LOAN ASSISTANT Type 2 diabetes mellitus with diabetic neuropathy, without long-term current use of insulin (HCC) LIPID PANEL Routine 09/27/2024 1:38 PM MORTGAGE LOAN ASSISTANT Type 2 diabetes mellitus with diabetic neuropathy, without long-term current use of insulin (HCC) ALBUMIN CREATININE RATIO, URINE Routine 09/27/2024 1:38 PM MORTGAGE LOAN ASSISTANT Type 2 diabetes mellitus with diabetic neuropathy, without long-term current use of insulin (HCC) DIABETIC EYE EXAM Routine 09/05/2024 11: 34 AM MORTGAGE LOAN ASSISTANT from Last 3 Months or Most Recently Relevant to Health Maintenance Results * (ABNORMAL) eGFR (09/27/2024 1:38 PM MORTGAGE LOAN ASSISTANT) eGFR 55(L) >=60 mL/min/1. 73 m2 Comment: [...] last reviewed 2021. Blood 09/27/2024 1:38 PM MORTGAGE LOAN ASSISTANT 09/27/2024 7:16 PM MORTGAGE LOAN ASSISTANT us Braulio Child MD LAB BLOOD ORDERAB[place] [address] [address] Department [place] [address] * (ABNORMAL) Albumin Creatinine Ratio, Urine (09/27/2024 1:38 PM MORTGAGE LOAN ASSISTANT) Albumin Ur 268.3 mg/L Comment: Interpretive Data No reference range established. Current interpretive data was last revised 2019. Creatinine Ur 127.2 mg/dL [place] SU Comment: Interpretive Data No reference range established. Current interpretive data was last revised 2019. Albumin Creatinine Ratio, Ur 211(H) 1 - 29 mg/g [facility] Urine 09/27/2024 1:38 PM MORTGAGE LOAN ASSISTANT 09/27/2024 7:13 PM MORTGAGE LOAN ASSISTANT us Braulio Child MD LAB URINE ORDERABLES Elaina farideh Result [facility] [address] [address] Department [place] [address] * (ABNORMAL) Lipid panel (09/27/2024 1:38 PM MORTGAGE LOAN ASSISTANT) Cholesterol 315(H) 30 - 199 mg/dL Comment: [...] ratio 7 [place] Blood 09/27/2024 1:38 PM MORTGAGE LOAN ASSISTANT 09/27/2024 7:13 PM MORTGAGE LOAN ASSISTANT us Braulio Child MD LAB BLOOD ORDERABLES [place] [address] [place] Department [place] [address] * (ABNORMAL) Diabetic Eye Exam (09/05/2024 11:34 AM MORTGAGE LOAN ASSISTANT) us Historical Provider HEALTH MAINTENANCE Final Result from Last 3 Months or Most Recently Relevant to Health Maintenance Insurance [facility] Care Teams Log Scaler Relationship Specialty Start Date End [place] [address] PCP - General Family Medicine 01/26/20 Alvina Palencia MA [address] [place] [address] [place] [address] [employer] 02/07/25
--- OUTSIDE RECORDS SUMMARY | 2025-02-11 01:51 | XMS_ITS | Clinical Summary ---
Author Organization [facility] [employer] Address [address] [place] [address] Care Team Providers Care Broker In Charge Name Role Phone Brad Sanchez MD Primary Care Provider + Source Comments [facility],non-owned Affiliates and Associated Physician Practices is amultiple site organization consisting of ambulatory clinics and hospital sitesin [place], [place], [place] and [place]. This disclosure is being madepursuant to the Care Everywhere program and may not contain all information available regarding this patient. Last updated 18.[facility] Allergies No known active allergies Medications * [...] fracture of first lumbar vertebra, initial encounter ([facility]) Take 1 (one) tablet by mouth every [...] Type Department Care Team Description 02/07/2025 Telephone [facility] Health at Home Scheduling [address] [place] [address] Latisha Yeh, RN Coordination Of Care 02/06/2025 Travel 02/03/2025 4:24 PM CDT - 02/05/2025 4:00 PM CDT Hospital Encounter [facility] 5S ACUTE [address] [place] [address] Jaswinder Alicea MD Tenquist, Jane E, MD [...] and heating? Not hard at all 02/04/2025 [facility] [place] [facility] Occup[facility] ional [facility] - Occupational Stress [...] any time in the past 12 m [facility], were you homeless or living in a nursing home (including now)? No 02/04/2025 Sex and Gender [...] Description 03/24/2025 9:30 AM CDT Office Visit [facility] [address] [place] [address] Maite Olivares, DEVELOPMENT TEAM LEAD-ENGINE HOSTLER [address] [place] [address] Health Maintenance Due Date Last Done Comments [...] of10 resultswithin the time period is included. [facility] Glucose WB/POC 236(H) 70 - 99 mg/dL 02/05/2025 12:54 PM CDT [facility] Specimen Type Arterial 02/05/2025 12:54 PM CDT [facility] Blood BLOOD SPECIMEN / Unknown 02/05/2025 12:52 PM CDT 02/05/2025 12:54 PM CDT us Ashwini Hooper MD LAB - POINT OF CARE ORDERABLE S Final Result [facility] [address] [place] [address], [facility] [phone] * (ABNORMAL) CBC W AUTO DIFFERENTIAL (02/05/2025 2:17 AM CDT) Only the most recent of3 resultswithin the time period is included. [facility] WBC 13.0(H) 4.0 - 10.7 x10E9/L 02/05/2025 2:49 AM [facility] RBC Count 4.42 4.30 - 5.80 x10E12/L 02/05/2025 2:49 AM [facility] Hemoglobin 12.7(L) 13.3 - 17.5 g/dL 02/05/2025 2:49 AM [facility] Hematocrit 38.1(L) 38.7 - 51.1 % 02/05/2025 2:49 AM [facility] MCV 86.2 80.0 - 98.0 fL 02/05/2025 2:49 AM [facility] MCH 28.7 26.7 - 33.6 pg 02/05/2025 2:49 AM [facility] MCHC 33.3 31.7 - 36.3 g/dL 02/05/2025 2:49 AM [facility] RDW-CV 12.9 11.3 - 14.8 % 02/05/2025 2:49 AM [facility] Platelet Count 118(L) 150 - 420 x10E9/L 02/05/2025 2:49 AM [facility] MPV 10.6 7.8 - 11.4 fL 02/05/2025 2:49 AM [facility] Neutrophil % 75.6(H) 41.0 - 74.0 % 02/05/2025 2:49 AM [facility] Lymphocyte % 14.7(L) 17.0 - 47.0 % 02/05/2025 2:49 AM [facility] Monocyte % 8.3 3.0 - 11.0 % 02/05/2025 2:49 AM [facility] Eosinophil % 0.4 0.0 - 7.0 % 02/05/2025 2:49 AM [facility] Basophil % 0.5 0.0 - 1.6 % 02/05/2025 2:49 AM [facility] Immature Granulocytes % 0.5 0.0 - 1.0 % 02/05/2025 2:49 AM [facility] Neutrophil Absolute 9.78(H) 1.60 - 7.50 x10E9/L 02/05/2025 2:49 AM [facility] Lymphocyte Absolute 1.91 1.00 - 4.40 x10E9/L 02/05/2025 2:49 AM [facility] Monocyte Absolute 1.08(H) 0.15 - 1.00 x10E9/L 02/05/2025 2:49 AM [facility] Eosinophil Absolute 0.05 0.00 - 0.60 x10E9/L 02/05/2025 2:49 AM [facility] Basophil Absolute 0.07 0.00 - 0.13 x10E9/L 02/05/2025 2:49 AM [facility] Blood BLOOD SPECIMEN / Unknown Lab Venipuncture / Unknown 02/05/2025 2:17 AM CDT 02/05/2025 2:40 AM CDT us Jaswinder Alicea MD LAB - HEMATOLOGY ORDERABLES Final Result [facility] [address] [place] [address], [facility] [phone] * (ABNORMAL) BASIC METABOLIC PANEL (CALCIUM TOTAL) (02/05/2025 2:17 AM CDT) Only the most recent of4 resultswithin the time period is included. BUN 31(H) 7 - 26 mg/dL 02/05/2025 3:04 AM [facility] Creatinine 1.32(H) 0.71 - 1.16 mg/dL 02/05/2025 3:04 AM [facility] Sodium 138 136 - 145 mmol/L 02/05/2025 3:04 AM [facility] Potassium 4.2 3.5 - 4.5 mmol/L 02/05/2025 3:04 AM [facility] Chloride 108(H) 98 - 107 mmol/L 02/05/2025 3:04 AM [facility] CO2 18(L) 22 - 29 mmol/L 02/05/2025 3:04 AM [facility] Glucose 212(H) 70 - 99 mg/dL 02/05/2025 3:04 AM [facility] Calcium 8.3(L) 8.4 - 10.2 mg/dL 02/05/2025 3:04 AM [facility] Anion Gap 12 6 - 16 02/05/2025 3:04 AM [facility] BUN/Creatinine Ratio 23 7 - 23 02/05/2025 3:04 AM [facility] Osmolality Calculated 299(H) 275 - 295 mOsm/kg 02/05/2025 3:04 AM [facility] eGFR by CKD-EPI 57(L) >=90 mL/min/1.7 3 m2 02/05/2025 3:04 AM [facility] Blood BLOOD SPECIMEN / Unknown Lab Venipuncture / Unknown 02/05/2025 2:17 AM CDT 02/05/2025 2:40 AM CDT us Jaswinder Alicea MD LAB - CHEMISTRY ORDERABLES F inal Result Performing Organization Address City/[facility]/ZIP Co de Phone Number [address] [address], [place] [phone] * PHOSPHORUS BLOOD (02/05/2025 2:17 AM CDT) Only the most recent of2 resultswithin the time period is included. Phosphorus 2.8 2.8 - 5.1 mg/dL 02/05/2025 3:04 AM CDT [facility] Blood BLOOD SPECIMEN / Unknown Lab Venipuncture / Unknown 02/05/2025 2:17 AM CDT 02/05/2025 2:40 AM CDT us Jaswinder Alicea MD LAB - CHEMISTRY ORDERABLES F inal Result Performing Organization Address [facility] Co de Phone Number [address] [address], [place] [phone] * MAGNESIUM BLOOD (02/05/2025 2:17 AM CDT) Only the most recent of2 resultswithin the time period is included. Magnesium 1.9 1.6 - 2.6 mg/dL 02/05/2025 3:04 AM CDT [facility] Blood BLOOD SPECIMEN / Unknown Lab Venipuncture / Unknown 02/05/2025 2:17 AM CDT 02/05/2025 2:40 AM CDT us Jaswinder Alicea MD LAB - CHEMISTRY ORDERABLES F inal Result Performing Organization Address City/[facility]/ZIP Co de Phone Number [address] [address], [place] [phone] * EKG 12-LEAD (02/04/2025 10:25 AM CDT) Only the most recent of2 resultswithin the time period is included. Ventricular Rate 73 BPM [facility] Atrial Rate 73 BPM [facility] P-R Interval 174 ms [facility] QRS Duration ms 98 ms [facility] Q-T Interval ms 382 ms [facility] QTC Calculation (Bezet) 420 ms [facility] Calculated P Purvis 21 degrees [facility] Calculated R Purvis -71 degrees [facility] Calculated T Purvis 36 degrees [facility] Interpretation EKG NORMAL SINUS RHYTHM LEFT AXIS DEVIATION PULMONARY DISEASE PATTERN NONSPECIFIC T WAVE ABNORMALITY ABNORMAL ECG WHEN COMPARED WITH ECG OF 03-FEB-2025 18:37, NO SIGNIFICANT CHANGE WAS FOUND Confirmed by MISHA SNIDER, JANEEN ([id number]) on 02/05/2025 2:11:12 PM [facility] MUSE 02/04/2025 10:2 5 AM CDT 02/05/2025 2:11 PM CDT us Ashwini Hooper MD ECG ORDERABLES Final Result [facility] MUSE * XR Chest 1Vw Portable (02/04/2025 6:09 AM CDT) Only the most recent of2 resultswithin the time period is included. Anatomical Region Laterality Modality Chest Digital Radiogra phy 02/04/2025 1:45 PM CDT Narrative 02/05/2025 4:31 AM CDT PROCEDURE: XR CHEST 1VW PORTABLE, DATE/TIME OF EXAM: 02/04/2025 6:09 AM, LOCATION [facility] INDICATION: S32.011A: Closed stable burst fracture of first lumbar vertebra, initial encounter ([facility]) ADDITIONAL CLINICAL INFORMATION: Ordering Provider Reason For [...] was drafted by Manasa Shoemaker MD (residential sales rep) 02/04/2025 1:46 PM. Kanu Kirk MD have personally reviewed and interpreted this examination/study. > Interpreting Provider: Kanu Dennison MD on 02/05/2025 4:31 AM Procedure Note Kanu Dennison MD - 02/05/2025 PROCEDURE: XR CHEST 1VW PORTABLE, DATE/TIME OF EXAM: 02/04/2025 6:09AM, LOCATION [facility] INDICATION: S32.011A: Closed stable burst fracture of first lumbar vertebra, initial encounter ([facility]) ADDITIONAL CLINICAL INFORMATION: Ordering Provider Reason For [...] was drafted by Manasa Shoemaker MD (residential sales rep) 02/04/2025 1:46 PM. Kanu Kirk MD have personally reviewed and interpreted this examination/study. > Interpreting Provider: Kanu Dennison MD on 02/05/2025 4:31 AM Ashwini Hooper MD DIAGNOSTIC IMAGING ORDERABLES Final Result * (ABNORMAL) HEMOGLOBIN A1C (02/03/2025 11:42 PM CDT) Hemoglobin A1c 12.5(H) <=5.6 % 02/05/2025 7:46 AM CDT [facility] Estimated Average Glucose 312 mg/dL 02/05/2025 7:46 AM CDT [facility] Comment: HbA1c Interpretation: Normal : < 5.7% Pre-diabetes: 5.7-6.4% Diabetes: Equal to or greater than 6.5% Test results diagnostic of diabetes should be repeated for confirmation. Treatment target values recommended by ADA and other clinical organizations should be used to evaluate metabolic control in patients. Reference: [place] [employer], Standards of Care in Diabetes [...] LAB - CHEMISTRY ORDERABLES F inal Result [address] [address], [facility] [phone] * XR Thoracolumbar Spine 2Vw (02/03/2025 10:07 PM CDT) Anatomical Region Laterality Modality Spine Digital Radiogra phy 02/04/2025 2:09 PM CDT Narrative 02/05/2025 3:29 AM CDT PROCEDURE: XR THORACOLUMBAR SPINE 2VW, DATE/TIME OF EXAM: 02/03/2025 10:07 PM, LOCATION [facility] INDICATION: S22.080A: Compression fracture of T12 vertebra, initial encounter ([facility]) ADDITIONAL CLINICAL INFORMATION: Ordering Provider Reason For [...] was drafted by Manasa Shoemaker MD (residential sales rep 02/04/2025 2:13 PM. Kanu Kirk MD have personally reviewed and interpreted this examination/study. > Interpreting Provider: Kanu Dennison MD on 02/05/2025 3:29 AM Procedure Note Kanu Dennison MD - 02/05/2025 PROCEDURE: XR THORACOLUMBAR SPINE 2VW, DATE/TIME OF EXAM: 510:07 PM, LOCATION [facility] INDICATION: S22.080A: Compression fracture of T12 vertebra, initial encounter ([facility]) ADDITIONAL CLINICAL INFORMATION: Ordering Provider Reason For [...] are normal. The report was drafted by Mnaasa Shoemaker MD (residential sales rep 02/04/2025 2:13 PM. Kanu Kirk MD have personally reviewed and interpreted this examination/study. > Interpreting Provider: Kanu Dennison MD on 02/05/2025 3:29 AM Jaswinder Alicea MD DIAGNOSTIC IMAGING ORDERABLE S Final Result * (ABNORMAL) URINALYSIS W/MICROSCOPIC NO CULTURE (02/03/2025 6:40 PM CDT) Color UA Yellow Yellow, Straw 02/03/2025 7:23 PM CDT [facility] Clarity UA Clear Clear 02/03/2025 7:23 PM CDT [facility] Glucose UA 4+(A) Normal 02/03/2025 7:23 PM CDT [facility] Bilirubin UA Negative Negative 02/03/2025 7:23 PM CDT [facility] Ketone UA Negative Negative 02/03/2025 7:23 PM [facility] Specific [place] UA 1.032(H) 1.005 - 1.030 02/03/2025 7:23 PM [facility] Blood UA 1+(A) Negative 02/03/2025 7:23 PM [facility] pH UA 6.5 5.0 - 8.0 pH 02/03/2025 7:23 PM [facility] Protein UA 1+(A) Negative 02/03/2025 7:23 PM [facility] Urobilinogen UA Normal Normal mg/dL 025 7:23 PM [facility] Nitrite UA Negative Negative 02/03/2025 7:23 PM [facility] Leukocyte UA Negative Negative 02/03/2025 7:23 PM [facility] RBC UA 0-2 0 - 5 # /hpf 02/03/2025 7:23 PM [facility] WBC UA 0-5 0 - 5 # /hpf 02/03/2025 7:23 PM [facility] Bacteria UA None Seen None Seen 02/03/2025 7:23 PM [facility] Squamous Epithelial Cells None Seen 0 - 5 /hpf 02/03/2025 7:23 PM [facility] Mucus UA 1+ /LPF 02/03/2025 7:23 PM [facility] Urine URINE SPECIMEN OBTAINED BY CLEAN CATCH PROCEDURE / Unknown Collection / Unknown 02/03/2025 6:40 PM CDT 02/03/2025 6:51 PM CDT us Ashwini Hooper MD LAB - URINALYSIS ORDERABLES F inal Result [address] [address], [facility] [phone] * (ABNORMAL) URINE DRUG SCREEN IMMUNOASSAY (02/03/2025 6:40 PM CDT) [facility] Amphetamines Screen Urine Negative Negative : < 1000 ng/mL 02/03/2025 7:17 PM T [facility] Barbiturates Screen Urine Negative Negative : < 200 ng/mL 02/03/2025 7:17 PM [facility] Benzodiazepine Screen Urine Negative Negative : < 200 ng/mL 02/03/2025 7:17 PM [facility] Opiates Urine Negative Negative : < 300 ng/mL 02/03/2025 7:17 PM [facility] Cocaine Metabolites Urine Negative Negative : < 300 ng/mL 02/03/2025 7:17 PM [facility] Phencyclidine Screen Urine Negative Negative : < 25 ng/ml 02/03/2025 7:17 PM [facility] Cannabinoids Screen Urine Positive(A) Negative : <50 ng/mL 02/03/2025 7:17 PM [facility] Comment:Positive urine canna binoids (THC) screening results should be confirmed by another generally accepted non-immunological method such as gas chromatography or mass spectrometry. Methadone Screen Urine Negative Negative : < 300 ng/mL 02/03/2025 7:17 PM [facility] Fentanyl Screen Urine Negative Negative : <1.5 ng/mL 02/03/2025 7:17 PM [facility] Urine URINE / Unknown Collection / Unknown 02/03/2025 6:40 PM CDT 02/03/2025 6:51 PM [facility] - 02/03/2025 7:17 PM [facility] The Urine Toxicology Screening Panel does not screen for Propoxyphene, Meprobamate, Carisoprodol, Trazodone, ctfu-aqf-adtvrxu medications and/or volatiles (Acetone, Isopropanol, Methanol or Ethylene Glycol). Ethanol, Salicylate, Acetaminophen, Tricyclic Antidepressants and several therapeutic drugs may be individually assayed in serum or plasma specimen. Toxicology testing by the [facility] is an aid to medical diagnosis and treatment of patients. No documented chain of custody was maintained. Results are intended to be used for clinical purposes only. us Ashwini Hooper MD LAB - URINE CHEMISTRY ORDERAB LES Final Result [facility] [address] [place] [address], [facility] [phone] * CT CHEST ABDOMEN PELVIS W CONT [...] spine. > Dictated by Jone Amato MD, (cardiac cath lab radiology technologist). I, Reed Durán MD have personally reviewed and interpreted this examination/study. > Interpreting Provider: Reed Durán MD on 02/04/2025 12:30 AM Narrative 02/04/2025 12:30 AM CDT PROCEDURE: CT CHEST ABDOMEN PELVIS W CONT, DATE/TIME OF EXAM: 02/03/2025 4:54 PM, LOCATION [facility] INDICATION: Trauma COMPARISON: None. TECHNIQUE: CT of [...] OF EXAM: 02/03/2025 4:54 PM, LOCATION [facility] INDICATION: Trauma COMPARISON: None. TECHNIQUE: CT of [...] is also a nondisplaced fracture of the [id number] process. Acute burst fracture of the L1 vertebral bodies % height loss with retropulsion with extension of [...] spine. > Dictated by Jone Amato MD, (cardiac cath lab radiology technologist). I, Reed Durán MD have personally reviewed [...] verification. > Dictated by Calos Cameron MD, (cardiac cath lab radiology technologist).0 I, Nicole Matthews MD have personally reviewed and interpreted this examination/study. > Interpreting Provider: Nicole Matthews MD on 02/03/2025 8:15 PM Narrative 02/03/2025 8:15 PM CDT PROCEDURE: CT HEAD WO CONTRAST, CT CERVICAL SPINE WO CONTRAST, CT THORACIC SPINE WO CONTRAST, CT LUMBAR SPINE WO CONTRAST, DATE/TIME OF EXAM: 02/03/2025 4:54 PM, LOCATION [facility] INDICATION: Trauma EXAMINATION: 1.Computed tomography (CT) of [...] OF EXAM: 02/03/2025 4:54 PM, LOCATION [facility] INDICATION: Trauma EXAMINATION: 1.Computed tomography (CT) of [...] or mildly displaced fracture of the right [id number] process. Acute superior endplate compression/burst-type fracture of [...] verification. > Dictated by Calos Cameron MD, (cardiac cath lab radiology technologist).0 I, Nicole Matthews MD have personally reviewed [...] verification. > Dictated by Calos Cameron MD, (cardiac cath lab radiology technologist).0 I, Nicole Matthews MD have personally reviewed and interpreted this examination/study. > Interpreting Provider: Nicole Matthews MD on 02/03/2025 8:15 PM Narrative 02/03/2025 8:15 PM CDT PROCEDURE: CT HEAD WO CONTRAST, CT CERVICAL SPINE WO CONTRAST, CT THORACIC SPINE WO CONTRAST, CT LUMBAR SPINE WO CONTRAST, DATE/TIME OF EXAM: 02/03/2025 4:54 PM, LOCATION [facility] INDICATION: Trauma EXAMINATION: 1.Computed tomography (CT) of [...] OF EXAM: 02/03/2025 4:54 PM, LOCATION [facility] INDICATION: Trauma EXAMINATION: 1.Computed tomography (CT) of [...] or mildly displaced fracture of the right C8jqjuduvhhe process. Acute superior endplate compression/burst-type fracture of [...] verification. > Dictated by Calos Cameron MD, (cardiac cath lab radiology technologist).0 I, Nicole Matthews MD have personally reviewed [...] verification. > Dictated by Calos Cameron MD, (cardiac cath lab radiology technologist).0 I, Nicole Matthews MD have personally reviewed and interpreted this examination/study. > Interpreting Provider: Nicole Matthews MD on 02/03/2025 8:15 PM Narrative 02/03/2025 8:15 PM CDT PROCEDURE: CT HEAD WO CONTRAST, CT CERVICAL SPINE WO CONTRAST, CT THORACIC SPINE WO CONTRAST, CT LUMBAR SPINE WO CONTRAST, DATE/TIME OF EXAM: 02/03/2025 4:54 PM, LOCATION [facility] INDICATION: Trauma EXAMINATION: 1.Computed tomography (CT) of [...] OF EXAM: 02/03/2025 4:54 PM, LOCATION [facility] INDICATION: Trauma EXAMINATION: 1.Computed tomography (CT) of [...] or mildly displaced fracture of the right R1jtzfgpcbpd process. Acute superior endplate compression/burst-type fracture of [...] verification. > Dictated by Calos Cameron MD, (cardiac cath lab radiology technologist).0 I, Nicole Matthews MD have personally reviewed [...] verification. > Dictated by Calos Cameron MD, (cardiac cath lab radiology technologist).0 I, Nicole Matthews MD have personally reviewed and interpreted this examination/study. > Interpreting Provider: Nicole Matthews MD on 02/03/2025 8:15 PM Narrative 02/03/2025 8:15 PM CDT PROCEDURE: CT HEAD WO CONTRAST, CT CERVICAL SPINE WO CONTRAST, CT THORACIC SPINE WO CONTRAST, CT LUMBAR SPINE WO CONTRAST, DATE/TIME OF EXAM: 02/03/2025 4:54 PM, LOCATION [facility] INDICATION: Trauma EXAMINATION: 1.Computed tomography (CT) of [...] OF EXAM: 02/03/2025 4:54 PM, LOCATION [facility] INDICATION: Trauma EXAMINATION: 1.Computed tomography (CT) of [...] or mildly displaced fracture of the right B4fgkkguuspw process. Acute superior endplate compression/burst-type fracture of [...] verification. > Dictated by Calos Cameron MD, (cardiac cath lab radiology technologist).0 Nicole Kirk MD have personally reviewed and [...] dislocation. > Dictated by Calos Cameron MD, (cardiac cath lab radiology technologist). Kanu Kirk MD have personally reviewed and interpreted this examination/study. > Interpreting Provider: Kanu Dennison MD on 02/04/2025 7:03 AM Narrative 02/04/2025 7:03 AM CDT PROCEDURE: XR PELVIS 1 OR 2VW, DATE/TIME OF EXAM: 02/03/2025 4:49 PM, LOCATION [facility] INDICATION: T14.90XA: Trauma ADDITIONAL CLINICAL INFORMATION: Ordering [...] OF EXAM: 02/03/2025 4:49 PM, LOCATION [facility] INDICATION: T14.90XA: Trauma ADDITIONAL CLINICAL INFORMATION: Ordering [...] dislocation. > Dictated by Calos Cameron MD, (cardiac cath lab radiology technologist). I, Kanu Dennison MD have personally reviewed and interpreted this examination/study. > Interpreting Provider: Kanu Dennison MD on 02/04/2025 7:03 AM Result Rodriguez Hooper MD DIAGNOSTIC IMAGING ORDERABLES Final Result * PTT [facility] (02/03/2025 4:35 PM CDT) APTT 27.1 23.0 - 38.4 Seconds 02/03/2025 5:02 PM CDT [facility] Comment:Suggested therapeuti c range for full dose I.V. unfractionated heparin therapy for venous thromboembolism is 71 to 109 seconds. Blood BLOOD SPECIMEN / Unknown Venipuncture / Unknown 02/03/2025 4:35 PM CDT 02/03/2025 4:36 PM CDT us Ashwini Hooper MD LAB - COAGULATION ORDERABLES Final Result Performing Organization Address [facility] Co de Phone Number [facility] [address] [place] [address], [facility] [phone] * PT-INR [facility] (02/03/2025 4:35 PM CDT) PT 13.1 12.1 - 14.8 Seconds 02/03/2025 5:02 PM CDT [facility] INR 1.0 See Comment 02/03/2025 5:02 PM CDT [facility] Comment:The suggested therap eutic range for standard coumadin (warfarin) therapy is an INR of 2.0-3.0. For high-risk patients (Mechanical Mitral Valve Prosthesis, etc.), the suggested prophylactic therapeutic range is an INR of 2.5-3.5. Blood BLOOD SPECIMEN / Unknown Venipuncture / Unknown 02/03/2025 4:35 PM CDT 02/03/2025 4:36 PM CDT us Ashwini Hooper MD LAB - COAGULATION ORDERABLES Final Result [address] [address], [facility] [phone] * LIPASE BLOOD (02/03/2025 4:35 PM CDT) Lipase 50 8 - 78 U/L 02/03/2025 5:07 PM CDT [facility] Blood BLOOD SPECIMEN / Unknown Venipuncture / Unknown 02/03/2025 4:35 PM CDT 02/03/2025 4:41 PM CDT Narrative [facility] - 02/03/2025 5:07 PM CDT Lipase results from the [employer] Alinity analyzer may not be comparable with other methodologies. Ashwini Hooper MD LAB - CHEMISTRY ORDERABLES Fi nal Result Performing Organization Address City/[facility]/ZIP Co de Phone Number [address] [address], [facility] [phone] * AMYLASE BLOOD (02/03/2025 4:35 PM CDT) Amylase 65 25 - 125 U/L 02/03/2025 5:07 PM CDT [facility] Blood BLOOD SPECIMEN / Unknown Venipuncture / Unknown 02/03/2025 4:35 PM CDT 02/03/2025 4:41 PM CDT Ashwini Hooper MD LAB - CHEMISTRY ORDERABLES nal Result [address] [address], [facility] [phone] * ALCOHOL ETHYL BLOOD (02/03/2025 4:35 PM CDT) Ethanol (mg/dL) <10 <10 mg/dL 5:07 PM CDT [facility] Ethanol Calculated (g/dL) <0.010 <=0.010 g/dL 02/03/2025 5:07 PM CDT [facility] Blood BLOOD SPECIMEN / Unknown Venipuncture / Unknown 02/03/2025 4:35 PM CDT 02/03/2025 4:41 PM CDT Narrative [facility] - 02/03/2025 5:07 PM CDT Ethanol Interp <10: None Detected. Depression of ROLLER DIE CUTTING MACHINE OPERATOR: >100 mg/dl Potentially Critical: >250 mg/dl Potentially [...] LAB - CHEMISTRY ORDERABLES Fi nal Result [facility] [address] [place] [address], [place] [phone] from Last 3 Months Insurance [facility] MEDICARE [facility] Address: [address] [address] Advance Directives * Full Code (Latest Code Status on File) Date Activated Date Inactivated Comments 02/03/2025 6:41 PM 02/05/2025 5:00 PM Care Teams Broker In Charge Relationship Specialty Start Date End Date Brad Sanchez MD [address] [place] [address] Dr Aleixs [address] [place] [phone] PCP - General Family Medicine 02/03/25
--- OUTSIDE RECORDS SUMMARY | 2025-02-11 01:51 | XMS_ITS | Referral Summary ---
Author Organization [facility] [address] [facility] Address [address] [place] [address] Care Team Providers Care Dry Wall Installations Mechanic Name Role Phone Braulio Child MD Primary Care Provider [phone] Alvina Palencia MA Unavailable Encounters Date Type Department Care Team Description 02/07/2025 ACO Outreach [address] [address] Alvina Palencia MA 02/07/2025 ELIS IP Outreach [address] [address] Alvina Palencia MA 01/26/[address] [address] Mayra Hoyt Unsuccessful Phone Call 1 (Essence dm eye ) 01/17/2025 ACO Quality [address] [address] Renee Mclain 11/30/2024 Telephone [facility] Primary Care at [address] [phone] Braulio Child MD from Last [...] 09/27/2024 blood-glucose meter (Contour Next EZ Meter) [facility] USE TO CHECK BLOOD GLUCOSE 3 (THREE) [...] hyperlipidemia Assessment & Plan (09/27/2024 10:25 AM PATTERN CARRIER): Resuming statin medication and will follw oresponse. ENcourage healthy food chocies. Prostate cancer screening 09/27/2024 Assessment & Plan (09/27/2024 10:25 AM PATTERN CARRIER): PSA pending. No hematuria, no nocturai. Type 2 diabetes mellitus wit h diabetic neuropathy, without long-term current use of insulin 09/27/2024 Annual physical exam 09/27/2024 Encounter for screening colonoscopy 03/28/2020 Overview (03/28/2020): Added automatically from request for surgery [id number] Chronic midline low back pain without sciatica 0 02/14/2020 Male erectile disorder 01/26/2020 Diabetic polyneuropathy asso ciated with type 2 diabetes mellitus 01/26/2020 Assessment & Plan (09/27/2024 10:24 AM PATTERN CARRIER): NO opne wounds/sores. WIll follow repsonse. Reivewed import of glycmie cocntro cynthia comorbidities. Hyperlipidemia 01/26/2020 Essential hypertension 01/26/2020 Type 2 diabetes mellitus wit h diabetic neuropathy, with long-term current use of insulin 01/26/2020 Assessment & Plan (09/27/2024 10:24 AM PATTERN CARRIER): Uptitration of lantus and will follow response. Reivewd improt of glycemic control. Denies any hypoglycemic episodes. Screening for malignant neoplasm of prostate Gastroesophageal reflux disease without esophagi tis 01/26/2020 Assessment & Plan (09/27/2024 10:24 AM PATTERN CARRIER): Stable on PPI and will montior response. [...] on file Legal Sex Male 8:00 PM PATTERN CARRIER Gender Identity Not on file Sexual Orientation Not on file Last Filed Vital Signs Vital Sign Reading Time Taken Comments Blood Pressure 132/74 09/27/2024 10:04 AM PATTERN CARRIER Pulse 78 09/27/2024 10:04 AM PATTERN CARRIER Temperature 36.8 C (98.2 F) 09/27/2024 10:04 AM PATTERN CARRIER Respiratory Rate 17 03/24/2022 8:38 AM CDT Oxygen Saturation 98% 09/27/2024 10:04 AM PATTERN CARRIER Inhaled Oxygen Concentration - - Weight 72.3 kg (159 lb 4.8 oz) 09/27/2024 10:04 AM PATTERN CARRIER Height 182.9 cm (6') 09/27/2024 10:04 AM PATTERN CARRIER Body Mass Index 21.6 09/27/2024 10:04 AM PATTERN CARRIER Plan of Treatment Not on file Procedures Procedure Name Priority Date/Time Associated Diagnosis Comments EGFR Routine 09/27/2024 1:38 PM PATTERN CARRIER Type 2 diabetes mellitus with diabetic neuropathy, without long-term current use of insulin (HCC) HEMOGLOBIN A1C Routine 09/27/2024 1:38 PM PATTERN CARRIER Type 2 diabetes mellitus with diabetic neuropathy, without long-term current use of insulin (HCC) LIPID PANEL Routine 09/27/2024 1:38 PM PATTERN CARRIER Type 2 diabetes mellitus with diabetic neuropathy, without long-term current use of insulin (HCC) ALBUMIN CREATININE RATIO, URINE Routine 09/27/2024 1:38 PM PATTERN CARRIER Type 2 diabetes mellitus with diabetic neuropathy, without long-term current use of insulin (HCC) DIABETIC EYE EXAM Routine 09/05/2024 11: 34 AM PATTERN CARRIER from Last 3 Months or Most Recently Relevant to Health Maintenance Results * (ABNORMAL) eGFR (09/27/2024 1:38 PM PATTERN CARRIER) eGFR 55(L) >=60 mL/min/1. 73 m2 Comment: [...] last reviewed 2021. Blood 09/27/2024 1:38 PM PATTERN CARRIER 09/27/2024 7:16 PM PATTERN CARRIER us Braulio Child MD LAB BLOOD ORDERABLES Elaina gong Result [facility] [address] [address] Department [place] [address] * (ABNORMAL) Albumin Creatinine Ratio, Urine (09/27/2024 1:38 PM PATTERN CARRIER) Albumin Ur 268.3 mg/L Comment: Interpretive Data No reference range established. Current interpretive data was last revised 2019. Creatinine Ur 127.2 mg/dL [facility] Comment: Interpretive Data No reference range established. Current interpretive data was last revised 2019. Albumin Creatinine Ratio, Ur 211(H) 1 - 29 mg/g [facility] Urine 09/27/2024 1:38 PM PATTERN CARRIER 09/27/2024 7:13 PM PATTERN CARRIER us Braulio Child MD LAB URINE ORDERABLES Elaina gong Result [facility] [address] [address] Department [place] [address] * (ABNORMAL) Lipid panel (09/27/2024 1:38 PM PATTERN CARRIER) Cholesterol 315(H) 30 - 199 mg/dL Comment: [...] revised on 2018. Triglycerides 305(H) <=149 mg/dL [facility] Comment: Interpretive Data Ages < or = [...] 7 [facility] SU Blood 09/27/2024 1:38 PM PATTERN CARRIER 09/27/2024 7:13 PM PATTERN CARRIER Braulio Child MD LAB BLOOD ORDERABLES [place] g[place] [address] [address] Department [place] [address] * (ABNORMAL) Diabetic Eye Exam (09/05/2024 11:34 AM PATTERN CARRIER) us Historical Provider HEALTH MAINTENANCE Final Result from Last 3 Months or Most Recently Relevant to Health Maintenance Insurance [facility] Care Teams Dry Wall Installations Mechanic Relationship Specialty Start Date End Date Braulio Child MD [address] [address] PCP - General Family Medicine 01/26/20 Alvina Palencia MA [address] [place] [address] [address] [place] [address] O Care Tea Taster 02/07/25
--- OUTSIDE RECORDS SUMMARY | 2025-02-11 01:51 | XMS_ITS | Encounter Summary ---
Author Organization [facility] Address [address] [place] [address] Care Team Providers Care Cancer Program Coordinator Name Role Phone Braulio Child MD Primary Care Provider [phone] [facility] Unavailable [phone] Alvina Palencia MA Unavailable Encounter Details Date Type Department Care Team (Late st Contact Info) Description 03/22/2024 Telephone Family Physicians [facility] [address] [place] [address] Braulio Child MD [address] [facility] [place] [address] Social History Tobacco Use Types Packs/Day Years Used Date Smoking Tobacco: Never Smokeless Tobacco: Never PHQ-2 Answer Date Recorded PHQ-2 Total Score (If total score is 3 or more points, staff should administer the PHQ-9) 0 03/22/2024 Sex and Gender Information Value Date Recorded Sex Assigned at Not on file 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 Gender Identity Not on file Sexual Orientation Not on file documented as of this encounter Plan of Treatment Not on file documented as of this encounter Visit Diagnoses Not on filedocumented in this encounter Care Teams Cancer Program Coordinator Relationship Specialty Start Date End Date Braulio Child MD [address] [place] [address] PCP - General Family Medicine 01/26/20 Nicole Prather RPh [address] [place] [address] Pharmacist Pharmacy 07/07/24 07/13/24 Alvina Palencia MA [address] [place] [address] ACO Care Flange Machine Operator 02/07/25 documented as of this encounter
[2025-02-11 02:02] LABS: Influenza A QL RT-PCR Negative (Negative); Influenza B QL RT-PCR Negative (Negative); RSV RNA, RT-PCR Negative (Negative); SARS-CoV-2 RNA PCR Negative (Negative)
[2025-02-11] MEDS: oxyCODONE HCL (*CRX) 5 MG TAB IR PO ×3 (02:12→18:29)
[2025-02-11 04:00] LABS: Fractional Inspired Oxygen 21 %; HCO3 VBG 17.9 mEq/l (24.0-30.0); PCO2 VBG 36.7 mmHg (42.0-48.0); PO2 VBG 27.9 mmHg (35.0-45.0); pH VBG 7.307 (7.300-7.400)
[2025-02-11 04:03] LABS: Device ROOM AIR
[2025-02-11 04:24] LABS: Anion Gap 13 mmol/L (4-12); Blood Urea Nitrogen 36 mg/dL (9-20); Calcium 8.6 mg/dL (8.4-10.2); Carbon Dioxide 19 mmol/L (22-30); Chloride 105 mmol/L (98-107); Estimated CRCL calculation 57 ml/min; Estimated Glomerular Filt Rate > 60; Glucose 216 mg/dL (65-110); Potassium 4.4 mmol/L (3.4-5.0); Sodium 137 mmol/L (137-145)
[2025-02-11] MEDS: LACTATED RINGERS 1,000 ML 125 ML IV CONT ×3 (06:38→23:52)
[2025-02-11 07:00] VITALS: BP 151/87; PULSE 76; RESP 16; O2SAT 98
[2025-02-11 07:57] VITALS: BP 127/79; PULSE 76; RESP 20; O2SAT 97
[2025-02-11 08:21] VITALS: BMI 20.2
[2025-02-11 08:34] LABS: Glucose Point of Care 242 mg/dl (65-105)
--- NOTE | 2025-02-11 08:45 | ADMGEN ---
This patient, Slade Barber, was admitted to [facility] Surg Room 310-01. Patient/family oriented to hospital policies and general routines including ID bracelet, bed and alarms, visiting hours, pain management, procedures, bathroom and other care routines, personal items, smoking policy, room service/diet, and visiting hours. Information on how to activate the Rapid Response Team has been discussed. Patient/Family are encouraged to report perceived risks to care and to ask questions if they do not understand what they are told or what they should do. Report from CODIE in ER.
[2025-02-11 09:03] VITALS: BP 178/86; PULSE 80; RESP 20; TEMP 36; O2SAT 100
[2025-02-11 11:30] LABS: Glucose Point of Care 166 mg/dl (65-105)
[2025-02-11] MEDS: SIMVASTATIN 20 MG TABLET PO (12:05)
[2025-02-11 13:52] VITALS: BP 152/91; PULSE 75; RESP 18; TEMP 36.6; O2SAT 97
--- NOTE | 2025-02-11 14:07 | PM.IMHP ---
H&P: HPI History of Present Illness Date/Time: 02/11/25 14:07 Chief Complaint: debilitation Narrative: Patient with history of diabetes, recent fall presented for possible placement. Patient notes that about 1 week ago his fall off of a ladder over 10 ft . He presented to [facility] found to have right-sided 3 broken ribs and few broken thoracic vertebra. He refused any surgery. He was treated with pain medications and he was discharged home. He was not able to get around. He had poor intake. he presented to ER for possible placement. In the Er lab test WBC 16.1 anion gap 25, BUN 33, creatinine 1.31, blood sugar 280, A1c 11. Patient started on IV fluids for possible starting ketoacidosis, dehydration, MADALYN. Patient was seen and examined at bedside. He is feeling fine.still complaining of pain. AG, MADALYN improving. started on sliding scale insulin. PT OT ordered. Possible discharge in 1-2 days. Pending improving blood test, PT/OT evaluation Review of Systems Review of Systems: All systems reviewed & are unremarkable except as noted in HPI. All systems reviewed & are unremarkable except as noted in HPI and below PMFSH Past Medical History Medical History History of hyperlipidemia History of diabetes mellitus Family History Family History (Updated 02/11/25 @ 08:55 by Jennie Winn RN) Mother Type 2 diabetes mellitus Other No problems noted. Sibling Type 2 diabetes mellitus Father Heart disease Social History Social History Smoking status: Former smoker Tobacco type: cigarettes Alcohol intake: former Substance use: current Substance use type: marijuana Last use: 02/02/25 Do You Feel Safe in your Home?: Yes Lack of Transportation: No Lack of Food: Never True Current Housing: I Have Housing Concerned About Future Housing: No Difficulty Paying Gas/Electric Bills: No Difficulty Paying for Meds: No Currently Unemployed: No Education: Don't Know Difficulty w/ Childcare or Family Care: No Spiritual care concerns: No Meds Home Medications and Allergies Home Medications ?Medication ?Instructions ?Recorded ?Confirmed ?Type blood sugar diagnostic (Contour 02/11/25 02/11/25 History Next Test Strips) gabapentin 300 mg capsule 300 mg PO DAILY 02/11/25 02/11/25 History insulin glargine-yfgn 100 unit/mL 20 unit subcut QPM 02/11/25 02/11/25 History (3 mL) subcutaneous pen (Semglee (insulin glargine-yfgn) Pen) metformin 1,000 mg tablet 1,000 mg PO BID 02/11/25 02/11/25 History simvastatin 20 mg tablet 20 mg PO DAILY 02/11/25 02/11/25 History Allergies Allergy/AdvReac Type Severity Reaction Status Date / Time No Known Allergies Allergy Verified 02/11/25 09:09 Vital Signs Vital Signs - 24 hr 02/10/25 18:16 02/10/25 19:54 02/10/25 22:40 Temperature 97.1 F L 97.7 F 97.6 F Pulse Rate 85 84 82 Respiratory Rate 16 18 16 Blood Pressure 135/70 124/69 145/89 H Pulse Oximetry 99 98 99 Oxygen Delivery Room Air 02/11/25 07:00 02/11/25 07:57 02/11/25 09:03 Temperature 96.8 F L Pulse Rate 76 76 80 Respiratory Rate 16 20 20 Blood Pressure 151/87 H 127/79 178/86 H Pulse Oximetry 98 97 100 Oxygen Delivery 02/11/25 13:52 Temperature 97.8 F Pulse Rate 75 Respiratory Rate 18 Blood Pressure 152/91 H Pulse Oximetry 97 Oxygen Delivery Exam Narrative: GENERAL: Elderly, frail/disheveled, non-toxic, in no acute distress. HEAD: Normocephalic, atraumatic. ENT: MMs very dry. NECK: [place] collar in place. RESPIRATORY: Airway patent, respirations nonlabored. Clear to auscultation bilaterally, no rales, rhonchi, wheezing. No increased work of breathing. Speaking in full sentences. CARDIOVASCULAR: Regular rate and rhythm without murmurs, rubs, or gallops. MUSCULOSKELETAL: No gross deformities. No weakness of lower extremities. TLSO brace in place. SKIN: Warm, dry, normal color. NEURO: A&O X3. Speech clear. Cranial nerves II-XII grossly intact. No ataxic movements. No focal deficits. PSYCHIATRIC: Appropriate mood and affect. Normal interaction. H&P: Results Labs Labs: Short CBC 02/10/25 Range/Units 22:12 WBC 16.1 H (4.5-10.0) K/mm3 Hgb 14.5 (14.0-18.0) g/dL Hct 44.3 (42.0-52.0) % Plt Count 335 (150-375) k/mm3 BMP 02/10/25 02/11/25 22:12 04:10 Sodium 138 137 Potassium 4.7 4.4 Chloride 99 105 Carbon Dioxide 14 L 19 L BUN 33 H 36 H Creatinine 1.31 H 1.06 Glucose 280 H 216 H Calcium 10.1 8.6 Liver Function 02/10/25 Range/Units 22:12 Total Bilirubin 1.0 (0.2-1.3) mg/dL AST 32 (17-59) U/L ALT 29 (6-50) U/L Alkaline Phosphatase 121 (38-126) U/L Albumin 4.0 (3.5-5.1) g/dL Urine 02/11/25 Range/Units 01:16 Urine Color Yellow (Yellow) Urine Appearance Clear (Clear) Urine pH 5.0 (5.0-9.0) Ur Specific [place] 1.025 (1.001-1.035) Urine Protein 2+ H (Negative) mg/dL Urine Glucose (UA) 3+ H (Negative) mg/dL Assessment and Plan Assessment and plan (1) Diabetes: Code(s): E11.9 - Type 2 diabetes mellitus without complications Status: Acute (2) Starvation ketoacidosis: Code(s): T73.0XXA - Starvation, initial encounter; E87.29 - Other acidosis Status: Acute (3) Fracture, thoracic vertebra: Qualifiers: Encounter type: sequela Fracture morphology: unspecified fracture morphology Fracture type: closed Thoracic vertebra fracture level: unspecified thoracic vertebra Qualified Code(s): S22.009S - Unspecified fracture of unspecified thoracic vertebra, sequela Code(s): S22.009A - Unspecified fracture of unspecified thoracic vertebra, initial encounter for closed fracture Status: Acute (4) Unable to care for self: Code(s): Z78.9 - Other specified health status Status: Acute (5) Unable to ambulate: Code(s): R26.2 - Difficulty in walking, not elsewhere classified Status: Acute (6) Dehydration: Code(s): E86.0 - Dehydration Status: Acute (7) MADALYN (acute kidney injury): Code(s): N17.9 - Acute kidney failure, unspecified Status: Acute Plan starving ketoacidosis vs DKA: improving IVF SSi and accuchecks lantus at bedtime continue to monitor MADALYN: improving IVF Debilitation PT/OT placement recent fall/vertebra and rib fx Pain meds Brace, collar' follow with orthopedic clinic as outpatient Uncontrolled DM2 SSi and accuchesk A1c 11.2
[2025-02-11 16:33] LABS: Hematocrit 32.9 % (42.0-52.0); Hemoglobin 10.7 g/dL (14.0-18.0); Mean Corpuscular HGB Conc 32.5 g/dl (32-36); Mean Corpuscular Hemoglobin 28.6 pg (26-34); Mean Platelet Volume 10.1 fl (7.4-10.4); Platelet Count Result 256 k/mm3 (150-375); Red Blood Count 3.74 M/mm3 (4.6-6.20); Red Cell Distribution Width 13.6 % (11.5-14.5); White Blood Count 11.5 K/mm3 (4.5-10.0)
[2025-02-11 16:42] LABS: Anion Gap 9 mmol/L (4-12); Blood Urea Nitrogen 31 mg/dL (9-20); Calcium 8.7 mg/dL (8.4-10.2); Carbon Dioxide 21 mmol/L (22-30); Chloride 105 mmol/L (98-107); Estimated CRCL calculation 62 ml/min; Estimated Glomerular Filt Rate > 60; Glucose 183 mg/dL (65-110); Potassium 3.9 mmol/L (3.4-5.0); Sodium 135 mmol/L (137-145)
[2025-02-11 17:04] LABS: Glucose Point of Care 198 mg/dl (65-105)
[2025-02-11] MEDS: GABAPENTIN 300 MG CAPSULE PO (18:29)
[2025-02-11] MEDS: INSULIN GLARGINE (*BKC) 100 UNITS/ML 10 UNITS SUB-Q (18:30)
[2025-02-11 21:02] VITALS: PULSE 71; RESP 20; O2SAT 96
[2025-02-11 21:05] LABS: Glucose Point of Care 195 mg/dl (65-105)
[2025-02-11 22:00] VITALS: BP 135/68; PULSE 80; RESP 20; TEMP 37.1; O2SAT 94
[2025-02-12 06:00] VITALS: BP 180/78
[2025-02-12 06:25] LABS: Hematocrit 37.1 % (42.0-52.0); Hemoglobin 12.6 g/dL (14.0-18.0); Mean Corpuscular Hemoglobin 29.2 pg (26-34); Mean Corpuscular Volume 86.1 fl (80-100); Mean Platelet Volume 9.9 fl (7.4-10.4); Platelet Count Result 298 k/mm3 (150-375); Red Blood Count 4.31 M/mm3 (4.6-6.20); Red Cell Distribution Width 13.5 % (11.5-14.5); White Blood Count 9.8 K/mm3 (4.5-10.0)
[2025-02-12 06:26] LABS: Anion Gap 6 mmol/L (4-12); Blood Urea Nitrogen 21 mg/dL (9-20); Carbon Dioxide 27 mmol/L (22-30); Chloride 104 mmol/L (98-107); Estimated CRCL calculation 65 ml/min; Estimated Glomerular Filt Rate > 60; Glucose 136 mg/dL (65-110); Potassium 3.6 mmol/L (3.4-5.0); Sodium 137 mmol/L (137-145)
[2025-02-12 06:40] VITALS: PULSE 70; RESP 18; TEMP 36.6; O2SAT 97
[2025-02-12 08:23] LABS: Glucose Point of Care 127 mg/dl (65-105)
[2025-02-12] MEDS: LACTATED RINGERS 1,000 ML 125 ML IV CONT ×2 (08:32→23:33)
[2025-02-12] MEDS: SIMVASTATIN 20 MG TABLET PO (08:33)
[2025-02-12 11:29] LABS: Glucose Point of Care 197 mg/dl (65-105)
[2025-02-12] MEDS: oxyCODONE HCL (*CRX) 5 MG TAB IR PO ×3 (12:19→21:47)
[2025-02-12 13:55] VITALS: BP 151/85; PULSE 79; RESP 14; TEMP 36.1; O2SAT 98
--- NOTE | 2025-02-12 14:23 | PM.IMPN ---
Progress Note: A&P Assessment and Plan (1) Diabetes: Code(s): E11.9 - Type 2 diabetes mellitus without complications Status: Acute (2) Starvation ketoacidosis: Code(s): T73.0XXA - Starvation, initial encounter; E87.29 - Other acidosis Status: Acute (3) Fracture, thoracic vertebra: Qualifiers: Encounter type: sequela Fracture morphology: unspecified fracture morphology Fracture type: closed Thoracic vertebra fracture level: unspecified thoracic vertebra Qualified Code(s): S22.009S - Unspecified fracture of unspecified thoracic vertebra, sequela Code(s): S22.009A - Unspecified fracture of unspecified thoracic vertebra, initial encounter for closed fracture Status: Acute (4) Unable to care for self: Code(s): Z78.9 - Other specified health status Status: Acute (5) Unable to ambulate: Code(s): R26.2 - Difficulty in walking, not elsewhere classified Status: Acute (6) Dehydration: Code(s): E86.0 - Dehydration Status: Acute (7) MADALYN (acute kidney injury): Code(s): N17.9 - Acute kidney failure, unspecified Status: Acute Plan starving ketoacidosis vs DKA: improved IVF SSi and accuchecks lantus at bedtime continue to monitor MADALYN: improving IVF Debilitation PT/OT placement recent fall/vertebra and rib fx Pain meds Brace, collar' follow with orthopedic clinic as outpatient Uncontrolled DM2 SSi and accuchesk A1c 11.2 Subjective Date/time seen: 02/12/25 14:23 Interval history: per HPi: Patient with history of diabetes, recent fall presented for possible placement. Patient notes that about 1 week ago his fall off of a ladder over 10 ft . He presented to [facility] found to have right-sided 3 broken ribs and few broken thoracic vertebra. He refused any surgery. He was treated with pain medications and he was discharged home. He was not able to get around. He had poor intake. he presented to ER for possible placement. In the Er lab test WBC 16.1 anion gap 25, BUN 33, creatinine 1.31, blood sugar 280, A1c 11. Patient started on IV fluids for possible starting ketoacidosis, dehydration, MADALYN. Patient was seen and examined at bedside. He is feeling fine.still complaining of pain. AG, MADALYN improving. started on sliding scale insulin. PT OT ordered. Possible discharge in 1-2 days. Pending improving blood test, PT/OT evaluation 02/12/25 Patient was seen and examined at bedside. he is feeling fine pain is under control. no acute event overnight. pending Pt/Ot eval Review of Systems Review of Systems: All systems reviewed & are unremarkable except as noted in HPI. All systems reviewed & are unremarkable except as noted in HPI and below Exam Narrative: GENERAL: Elderly, frail/disheveled, non-toxic, in no acute distress. HEAD: Normocephalic, atraumatic. ENT: MMs very dry. NECK: [place] collar in place. RESPIRATORY: Airway patent, respirations nonlabored. Clear to auscultation bilaterally, no rales, rhonchi, wheezing. No increased work of breathing. Speaking in full sentences. CARDIOVASCULAR: Regular rate and rhythm without murmurs, rubs, or gallops. MUSCULOSKELETAL: No gross deformities. No weakness of lower extremities. TLSO brace in place. SKIN: Warm, dry, normal color. NEURO: A&O X3. Speech clear. Cranial nerves II-XII grossly intact. No ataxic movements. No focal deficits. PSYCHIATRIC: Appropriate mood and affect. Normal interaction. Objective Data Vital Signs Vital Signs: Vital Signs - 24 hr 02/12/25 20:00 02/12/25 21:15 02/13/25 04:25 Temperature 97.1 F L 97.3 F L Pulse Rate 72 70 Respiratory Rate 18 16 Blood Pressure 156/82 H 154/82 H Pulse Oximetry 97 99 Oxygen Delivery Room Air 02/13/25 14:00 Temperature 97.2 F L Pulse Rate 76 Respiratory Rate 14 Blood Pressure 143/78 H Pulse Oximetry 98 Oxygen Delivery Intake/Output Intake/Output: Intake & Output 02/10/25 02/11/25 02/12/25 02/13/25 23:59 23:59 23:59 23:59 Intake Total 4650 3022 1660 Output Total 825 1350 1350 Balance 3825 1672 310 Meds/Results Medications: Active Medications Generic Name Dose Route Start Last Admin Trade Name Freq PRN Reason Stop Dose Admin Acetaminophen 650 mg 02/11/25 06:13 02/12/25 21:47 Acetaminophen 325 Mg Tablet PO 650 mg Q4H PRN Administration Mild Pain (1-3) or Fever Dextrose 12.5 gm 02/11/25 08:22 Dextrose 50% 25 Gm/50 Ml Syringe IV PUSH PRN PRN Hypoglycemia Protocol Gabapentin 300 mg 02/11/25 18:00 02/12/25 17:41 Gabapentin 300 Mg Capsule PO 300 mg QPM KRISTIN Administration Glucagon 1 mg 02/11/25 08:22 Glucagon For Inj 1 Mg Vial IM PRN PRN Hypoglycemia Protocol Glucose 15 gm 02/11/25 08:22 Glucose Oral Gel 15 Gm Of Glucse In 37.5 Gm Tube PO PRN PRN Hypoglycemia Protocol Lactated Ringer's 1,000 mls @ 125 mls/hr 02/11/25 06:15 02/13/25 07:39 Lr - Lactated Ringers Iv IV CONT 125 mls/hr .Q8H KRISTIN Administration Dextrose 1,000 mls @ 100 mls/hr 02/11/25 08:22 Dextrose 5% 1,000 Ml IVPB PRN PRN Hypoglycemia Protocol Insulin Aspart 3 - 6 units 02/11/25 12:00 02/13/25 12:43 Insulin Aspart (*Bkc) 100 Units/Ml SUB-Q Not Given TIDWM [facility] Protocol Insulin Aspart 1 - 3 units 02/11/25 21:00 02/12/25 21:51 Insulin Aspart (*Bkc) 100 Units/Ml SUB-Q Not Given HS [facility] Protocol Insulin Glargine 10 units 02/11/25 18:00 02/12/25 17:48 Insulin Glargine (*Bkc) 100 Units/Ml SUB-Q 10 units QPM KRISTIN Administration Ondansetron HCl 4 mg 02/11/25 06:13 Ondansetron Inj 4 Mg/2 Ml Vial IV PUSH Q4H PRN Nausea Oxycodone HCl 5 mg 02/11/25 09:17 02/13/25 07:47 Oxycodone Hcl (*Crx) 5 Mg Tab Ir PO 5 mg Q4H PRN Administration Pain Rated 7-10 Simvastatin 20 mg 02/11/25 09:00 02/13/25 09:51 Simvastatin 20 Mg Tablet PO 20 mg DAILY KRISTIN Administration Radiology Results: ITS Impressions Chest X-Ray 02/11/25 07:17 IMPRESSION: 1. Small lung volumes. Labs Labs: Laboratory Results - last 24 hr 02/12/25 02/12/25 02/13/25 16:28 21:19 07:22 Sodium Potassium Chloride Carbon Dioxide Anion Gap BUN Creatinine Estim Creat Clear Calc Estimated GFR Glucose POC Capillary Glucose 183 H 183 H 141 H Calcium 02/13/25 02/13/25 08:52 11:08 Sodium 137 Potassium 3.5 Chloride 100 Carbon Dioxide 26 Anion Gap 11 BUN 12 D Creatinine 0.65 L Estim Creat Clear Calc 82 Estimated GFR > 60 Glucose 147 H POC Capillary Glucose 178 H Calcium 9.3
[2025-02-12 16:30] LABS: Glucose Point of Care 183 mg/dl (65-105)
[2025-02-12] MEDS: GABAPENTIN 300 MG CAPSULE PO (17:41)
[2025-02-12] MEDS: INSULIN GLARGINE (*BKC) 100 UNITS/ML 10 UNITS SUB-Q (17:48)
[2025-02-12 21:15] VITALS: BP 156/82; PULSE 72; RESP 18; TEMP 36.2; O2SAT 97
[2025-02-12 21:23] LABS: Glucose Point of Care 183 mg/dl (65-105)
[2025-02-12] MEDS: ACETAMINOPHEN 325 MG TABLET 650 MG PO (21:47)
[2025-02-13 04:25] VITALS: BP 154/82; PULSE 70; RESP 16; TEMP 36.3; O2SAT 99
[2025-02-13 07:35] LABS: Glucose Point of Care 141 mg/dl (65-105)
[2025-02-13] MEDS: LACTATED RINGERS 1,000 ML 125 ML IV CONT (07:39)
[2025-02-13] MEDS: oxyCODONE HCL (*CRX) 5 MG TAB IR PO ×3 (07:47→21:22)
[2025-02-13 09:25] LABS: Anion Gap 11 mmol/L (4-12); Blood Urea Nitrogen 12 mg/dL (9-20); Calcium 9.3 mg/dL (8.4-10.2); Carbon Dioxide 26 mmol/L (22-30); Chloride 100 mmol/L (98-107); Estimated CRCL calculation 82 ml/min; Estimated Glomerular Filt Rate > 60; Glucose 147 mg/dL (65-110); Potassium 3.5 mmol/L (3.4-5.0); Sodium 137 mmol/L (137-145)
[2025-02-13] MEDS: SIMVASTATIN 20 MG TABLET PO (09:51)
[2025-02-13 11:12] LABS: Glucose Point of Care 178 mg/dl (65-105)
[2025-02-13 14:00] VITALS: BP 143/78; PULSE 76; RESP 14; TEMP 36.2; O2SAT 98
--- NOTE | 2025-02-13 14:49 | PM.IMPN ---
Progress Note: A&P Assessment and Plan (1) Diabetes: Code(s): E11.9 - Type 2 diabetes mellitus without complications Status: Acute (2) Starvation ketoacidosis: Code(s): T73.0XXA - Starvation, initial encounter; E87.29 - Other acidosis Status: Acute (3) Fracture, thoracic vertebra: Qualifiers: Encounter type: sequela Fracture morphology: unspecified fracture morphology Fracture type: closed Thoracic vertebra fracture level: unspecified thoracic vertebra Qualified Code(s): S22.009S - Unspecified fracture of unspecified thoracic vertebra, sequela Code(s): S22.009A - Unspecified fracture of unspecified thoracic vertebra, initial encounter for closed fracture Status: Acute (4) Unable to care for self: Code(s): Z78.9 - Other specified health status Status: Acute (5) Unable to ambulate: Code(s): R26.2 - Difficulty in walking, not elsewhere classified Status: Acute (6) Dehydration: Code(s): E86.0 - Dehydration Status: Acute (7) MADALYN (acute kidney injury): Code(s): N17.9 - Acute kidney failure, unspecified Status: Acute Plan starving ketoacidosis vs DKA: improved Received IVF SSi and accuchecks lantus at bedtime continue to monitor MADALYN: improving IVF Debilitation PT/OT placement recent fall/vertebra and rib fx Pain meds Brace, collar' follow with orthopedic clinic as outpatient Uncontrolled DM2 SSi and accuchesk A1c 11.2 Subjective Date/time seen: 02/13/25 14:49 Interval history: per HPi: Patient with history of diabetes, recent fall presented for possible placement. Patient notes that about 1 week ago his fall off of a ladder over 10 ft . He presented to [facility] found to have right-sided 3 broken ribs and few broken thoracic vertebra. He refused any surgery. He was treated with pain medications and he was discharged home. He was not able to get around. He had poor intake. he presented to ER for possible placement. In the Er lab test WBC 16.1 anion gap 25, BUN 33, creatinine 1.31, blood sugar 280, A1c 11. Patient started on IV fluids for possible starting ketoacidosis, dehydration, MADALYN. Patient was seen and examined at bedside. He is feeling fine.still complaining of pain. AG, MADALYN improving. started on sliding scale insulin. PT OT ordered. Possible discharge in 1-2 days. Pending improving blood test, PT/OT evaluation 02/12/25 Patient was seen and examined at bedside. he is feeling fine pain is under control. no acute event overnight. pending Pt/Ot eval 02/13/25 Patient was seen and examined At bedside. He is feeling better. His pain is under better control. PT/OT on board. Pending rehab placement. Review of Systems Review of Systems: All systems reviewed & are unremarkable except as noted in HPI. All systems reviewed & are unremarkable except as noted in HPI and below Exam Narrative: GENERAL: Elderly, frail/disheveled, non-toxic, in no acute distress. HEAD: Normocephalic, atraumatic. ENT: MMs very dry. NECK: Bath collar in place. RESPIRATORY: Airway patent, respirations nonlabored. Clear to auscultation bilaterally, no rales, rhonchi, wheezing. No increased work of breathing. Speaking in full sentences. CARDIOVASCULAR: Regular rate and rhythm without murmurs, rubs, or gallops. MUSCULOSKELETAL: No gross deformities. No weakness of lower extremities. TLSO brace in place. SKIN: Warm, dry, normal color. NEURO: A&O X3. Speech clear. Cranial nerves II-XII grossly intact. No ataxic movements. No focal deficits. PSYCHIATRIC: Appropriate mood and affect. Normal interaction. Objective Data Vital Signs Vital Signs: Vital Signs - 24 hr 02/12/25 20:00 02/12/25 21:15 02/13/25 04:25 Temperature 97.1 F L 97.3 F L Pulse Rate 72 70 Respiratory Rate 18 16 Blood Pressure 156/82 H 154/82 H Pulse Oximetry 97 99 Oxygen Delivery Room Air 02/13/25 14:00 Temperature 97.2 F L Pulse Rate 76 Respiratory Rate 14 Blood Pressure 143/78 H Pulse Oximetry 98 Oxygen Delivery Intake/Output Intake/Output: Intake & Output 02/10/25 02/11/25 02/12/25 02/13/25 23:59 23:59 23:59 23:59 Intake Total 4650 3022 1660 Output Total 825 1350 1350 Balance 3825 1672 310 Meds/Results Medications: Active Medications Generic Name Dose Route Start Last Admin Trade Name Freq PRN Reason Stop Dose Admin Acetaminophen 650 mg 05/17/25 06:13 02/12/25 21:47 Acetaminophen 325 Mg Tablet PO 650 mg Q4H PRN Administration Mild Pain (1-3) or Fever Dextrose 12.5 gm 02/11/25 08:22 Dextrose 50% 25 Gm/50 Ml Syringe IV PUSH PRN PRN Hypoglycemia Protocol Gabapentin 300 mg 02/11/25 18:00 02/12/25 17:41 Gabapentin 300 Mg Capsule PO 300 mg QPM KRISTIN Administration Glucagon 1 mg 02/11/25 08:22 Glucagon For Inj 1 Mg Vial IM PRN PRN Hypoglycemia Protocol Glucose 15 gm 02/11/25 08:22 Glucose Oral Gel 15 Gm Of Glucse In 37.5 Gm Tube PO PRN PRN Hypoglycemia Protocol Lactated Ringer's 1,000 mls @ 125 mls/hr 02/11/25 06:15 02/13/25 07:39 Lr - Lactated Ringers Iv IV CONT 125 mls/hr .Q8H KRISTIN Administration Dextrose 1,000 mls @ 100 mls/hr 02/11/25 08:22 Dextrose 5% 1,000 Ml IVPB PRN PRN Hypoglycemia Protocol Insulin Aspart 3 - 6 units 02/11/25 12:00 02/13/25 12:43 Insulin Aspart (*Bkc) 100 Units/Ml SUB-Q Not Given TIDWM [facility] Protocol Insulin Aspart 1 - 3 units 02/11/25 21:00 02/12/25 21:51 Insulin Aspart (*Bkc) 100 Units/Ml SUB-Q Not Given HS [facility] Protocol Insulin Glargine 10 units 02/11/25 18:00 02/12/25 17:48 Insulin Glargine (*Bkc) 100 Units/Ml SUB-Q 10 units QPM KRISTIN Administration Ondansetron HCl 4 mg 02/11/25 06:13 Ondansetron Inj 4 Mg/2 Ml Vial IV PUSH Q4H PRN Nausea Oxycodone HCl 5 mg 02/11/25 09:17 02/13/25 07:47 Oxycodone Hcl (*Crx) 5 Mg Tab Ir PO 5 mg Q4H PRN Administration Pain Rated 7-10 Simvastatin 20 mg 02/11/25 09:00 02/13/25 09:51 Simvastatin 20 Mg Tablet PO 20 mg DAILY KRISTIN Administration Radiology Results: ITS Impressions Chest X-Ray 02/11/25 07:17 IMPRESSION: 1. Small lung volumes. Labs Labs: Laboratory Results - last 24 hr 02/12/25 02/12/25 02/13/25 16:28 21:19 07:22 Sodium Potassium Chloride Carbon Dioxide Anion Gap BUN Creatinine Estim Creat Clear Calc Estimated GFR Glucose POC Capillary Glucose 183 H 183 H 141 H Calcium 02/13/25 02/13/25 08:52 11:08 Sodium 137 Potassium 3.5 Chloride 100 Carbon Dioxide 26 Anion Gap 11 BUN 12 D Creatinine 0.65 L Estim Creat Clear Calc 82 Estimated GFR > 60 Glucose 147 H POC Capillary Glucose 178 H Calcium 9.3
[2025-02-13 16:23] LABS: Glucose Point of Care 167 mg/dl (65-105)
[2025-02-13] MEDS: GABAPENTIN 300 MG CAPSULE PO (17:25)
[2025-02-13] MEDS: INSULIN GLARGINE (*BKC) 100 UNITS/ML 10 UNITS SUB-Q (18:01)
[2025-02-13 20:49] LABS: Glucose Point of Care 164 mg/dl (65-105)
[2025-02-13 20:52] VITALS: BP 146/74; PULSE 76; RESP 12; TEMP 36.4; O2SAT 97
[2025-02-14 05:44] VITALS: BP 155/77; PULSE 72; RESP 12; TEMP 36.1; O2SAT 99
[2025-02-14 06:05] LABS: Hematocrit 36.5 % (42.0-52.0); Hemoglobin 12.3 g/dL (14.0-18.0); Mean Corpuscular HGB Conc 33.7 g/dl (32-36); Mean Corpuscular Hemoglobin 28.9 pg (26-34); Mean Corpuscular Volume 85.9 fl (80-100); Mean Platelet Volume 9.7 fl (7.4-10.4); Platelet Count Result 352 k/mm3 (150-375); Red Blood Count 4.25 M/mm3 (4.6-6.20); Red Cell Distribution Width 13.7 % (11.5-14.5); White Blood Count 8.6 K/mm3 (4.5-10.0)
[2025-02-14 06:08] LABS: Anion Gap 7 mmol/L (4-12); Blood Urea Nitrogen 13 mg/dL (9-20); Calcium 8.8 mg/dL (8.4-10.2); Carbon Dioxide 29 mmol/L (22-30); Chloride 101 mmol/L (98-107); Estimated CRCL calculation 73 ml/min; Estimated Glomerular Filt Rate > 60; Glucose 97 mg/dL (65-110); Sodium 137 mmol/L (137-145)
[2025-02-14 08:07] LABS: Glucose Point of Care 99 mg/dl (65-105)
[2025-02-14] MEDS: oxyCODONE HCL (*CRX) 5 MG TAB IR PO ×3 (09:02→21:27)
[2025-02-14] MEDS: SIMVASTATIN 20 MG TABLET PO (09:03)
--- NOTE | 2025-02-14 10:16 | PCPTNOTE ---
Patient requests PT return later today for treatment. Patient states he was up and participated in OT this morning and feels fatigued at his time.
[2025-02-14 11:37] LABS: Glucose Point of Care 162 mg/dl (65-105)
[2025-02-14] MEDS: POTASSIUM CHLORIDE 20 MEQ PACKET (FOR LIQUID) 40 MEQ PO (12:10)
--- NOTE | 2025-02-14 12:24 | P.PNIM_ITS ---
Progress Note: A&P Assessment and Plan (1) Diabetes: Code(s): E11.9 - Type 2 diabetes mellitus without complications Status: Acute (2) Starvation ketoacidosis: Code(s): T73.0XXA - Starvation, initial encounter; E87.29 - Other acidosis Status: Acute (3) Fracture, thoracic vertebra: Qualifiers: Encounter type: sequela Fracture morphology: unspecified fracture morphology Fracture type: closed Thoracic vertebra fracture level: unspecified thoracic vertebra Qualified Code(s): S22.009S - Unspecified fracture of unspecified thoracic vertebra, sequela Code(s): S22.009A - Unspecified fracture of unspecified thoracic vertebra, initial encounter for closed fracture Status: Acute (4) Unable to care for self: Code(s): Z78.9 - Other specified health status Status: Acute (5) Unable to ambulate: Code(s): R26.2 - Difficulty in walking, not elsewhere classified Status: Acute (6) Dehydration: Code(s): E86.0 - Dehydration Status: Acute (7) MADALYN (acute kidney injury): Code(s): N17.9 - Acute kidney failure, unspecified Status: Acute Plan starving ketoacidosis vs DKA: improved Received IVF SSi and accuchecks lantus at bedtime continue to monitor MADALYN: improving received IVF Debilitation PT/OT placement recent fall/vertebra and rib fx Pain meds Brace, collar' follow with orthopedic clinic as outpatient Uncontrolled DM2 SSi and accuchesk A1c 11.2 Subjective Date/time seen: 02/14/25 12:24 Interval history: per HPi: Patient with history of diabetes, recent fall presented for possible placement. Patient notes that about 1 week ago his fall off of a ladder over 10 ft . He presented to [facility] found to have right-sided 3 broken ribs and few broken thoracic vertebra. He refused any surgery. He was treated with pain medications and he was discharged home. He was not able to get around. He had poor intake. he presented to ER for possible placement. In the Er lab test WBC 16.1 anion gap 25, BUN 33, creatinine 1.31, blood sugar 280, A1c 11. Patient started on IV fluids for possible starting ketoacidosis, dehydration, MADALYN. Patient was seen and examined at bedside. He is feeling fine.still complaining of pain. AG, MADALYN improving. started on sliding scale insulin. PT OT ordered. Possible discharge in 1-2 days. Pending improving blood test, PT/OT evaluation 02/12/25 Patient was seen and examined at bedside. he is feeling fine pain is under control. no acute event overnight. pending Pt/Ot eval 02/14/25 Patient was seen and examined At bedside. He is feeling better. His pain is under better control. PT/OT on board. Pending rehab placement. Review of Systems Review of Systems: All systems reviewed & are unremarkable except as noted in HPI. All systems reviewed & are unremarkable except as noted in HPI and below Exam Narrative: GENERAL: Elderly, frail/disheveled, non-toxic, in no acute distress. HEAD: Normocephalic, atraumatic. ENT: MMs very dry. NECK: Spelter collar in place. RESPIRATORY: Airway patent, respirations nonlabored. Clear to auscultation b ilaterally, no rales, rhonchi, wheezing. No increased work of breathing. Speaking in full sentences. CARDIOVASCULAR: Regular rate and rhythm without murmurs, rubs, or gallops. MUSCULOSKELETAL: No gross deformities. No weakness of lower extremities. TLSO brace in place. SKIN: Warm, dry, normal color. NEURO: A&O X3. Speech clear. Cranial nerves II-XII grossly intact. No ataxic movements. No focal deficits. PSYCHIATRIC: Appropriate mood and affect. Normal interaction. Objective Data Vital Signs Vital Signs: Vital Signs - 24 hr 02/13/25 14:00 02/13/25 20:00 02/13/25 20:52 Temperature 97.2 F L 97.6 F Pulse Rate 76 76 Respiratory Rate 14 12 Blood Pressure 143/78 H 146/74 H Pulse Oximetry 98 97 Oxygen Delivery Room Air 02/14/25 05:44 Temperature 97.0 F L Pulse Rate 72 Respiratory Rate 12 Blood Pressure 155/77 H Pulse Oximetry 99 Oxygen Delivery Intake/Output Intake/Output: Intake & Output 02/11/25 02/12/25 02/13/25 02/14/25 23:59 23:59 23:59 23:59 Intake Total 4650 3022 3450 340 Output Total 825 1350 1950 Balance 3825 1672 1500 340 Meds/Results Medications: Active Medications Generic Name Dose Route Start Last Admin Trade Name Freq PRN Reason Stop Dose Admin Acetaminophen 650 mg 02/11/25 06:13 02/12/25 21:47 Acetaminophen 325 Mg Tablet PO 650 mg Q4H PRN Administration Mild Pain (1-3) or Fever Dextrose 12.5 gm 02/11/25 08:22 Dextrose 50% 25 Gm/50 Ml Syringe IV PUSH PRN PRN Hypoglycemia Protocol Gabapentin 300 mg 02/11/25 18:00 02/13/25 17:25 Gabapentin 300 Mg Capsule PO 300 mg QPM KRISTIN Administration Glucagon 1 mg 02/11/25 08:22 Glucagon For Inj 1 Mg Vial IM PRN PRN Hypoglycemia Protocol Glucose 15 gm 02/11/25 08:22 Glucose Oral Gel 15 Gm Of Glucse In 37.5 Gm Tube PO PRN PRN Hypoglycemia Protocol Dextrose 1,000 mls @ 100 mls/hr 02/11/25 08:22 Dextrose 5% 1,000 Ml IVPB PRN PRN Hypoglycemia Protocol Insulin Aspart 3 - 6 units 02/11/25 12:00 02/14/25 12:10 Insulin Aspart (*Bkc) 100 Units/Ml SUB-Q Not Given TIDWM [facility] Protocol Insulin Aspart 1 - 3 units 02/11/25 21:00 02/13/25 21:08 Insulin Aspart (*Bkc) 100 Units/Ml SUB-Q Not Given HS [facility] Protocol Insulin Glargine 10 units 02/11/25 18:00 02/13/25 18:01 Insulin Glargine (*Bkc) 100 Units/Ml SUB-Q 10 units QPM KRISTIN Administration Ondansetron HCl 4 mg 02/11/25 06:13 Ondansetron Inj 4 Mg/2 Ml Vial IV PUSH Q4H PRN Nausea Oxycodone HCl 5 mg 02/11/25 09:17 02/14/25 09:02 Oxycodone Hcl (*Crx) 5 Mg Tab Ir PO 5 mg Q4H PRN Administration Pain Rated 7-10 Simvastatin 20 mg 02/11/25 09:00 02/14/25 09:03 Simvastatin 20 Mg Tablet PO 20 mg DAILY KRISTIN Administration Radiology Results: ITS Impressions Chest X-Ray 02/11/25 07:17 IMPRESSION: 1. Small lung volumes. Labs Labs: Laboratory Results - last 24 hr 02/13/25 02/13/25 02/14/25 16:19 19:57 05:29 WBC 8.6 RBC 4.25 L Hgb 12.3 L Hct 36.5 L MCV 85.9 MCH 28.9 MCHC 33.7 RDW 13.7 Plt Count 352 MPV 9.7 Sodium 137 Potassium 3.0 L Chloride 101 Carbon Dioxide 29 Anion Gap 7 BUN 13 Creatinine 0.74 Estim Creat Clear Calc 73 Estimated GFR > 60 Glucose 97 POC Capillary Glucose 167 H 164 H Calcium 8.8 02/14/25 02/14/25 08:02 11:32 WBC RBC Hgb Hct MCV MCH MCHC RDW Plt Count MPV Sodium Potassium Chloride Carbon Dioxide Anion Gap BUN Creatinine Estim Creat Clear Calc Estimated GFR Glucose POC Capillary Glucose 99 162 H Calcium
[2025-02-14 14:00] VITALS: BP 147/80; PULSE 73; RESP 16; TEMP 36.2; O2SAT 96
[2025-02-14 17:13] LABS: Glucose Point of Care 183 mg/dl (65-105)
[2025-02-14] MEDS: GABAPENTIN 300 MG CAPSULE PO (17:14)
[2025-02-14] MEDS: ENOXAPARIN 40 MG/0.4 ML SYRINGE SUB-Q (17:19)
[2025-02-14] MEDS: INSULIN GLARGINE (*BKC) 100 UNITS/ML 10 UNITS SUB-Q (17:20)
[2025-02-14 20:00] VITALS: PULSE 78; RESP 14; O2SAT 95
[2025-02-14 20:03] LABS: Glucose Point of Care 222 mg/dl (65-105)
[2025-02-14 20:42] VITALS: BP 146/75; PULSE 78; RESP 14; TEMP 36.5; O2SAT 95
[2025-02-14] MEDS: SENNA/DOCUSATE SODIUM TABLET 2 TAB PO (21:22)
[2025-02-14] MEDS: INSULIN ASPART (*BKC) 100 UNITS/ML SUB-Q (21:26)
[2025-02-15 05:18] VITALS: BP 144/81; PULSE 74; RESP 14; TEMP 36.3; O2SAT 97
[2025-02-15 06:22] LABS: Hematocrit 35.1 % (42.0-52.0); Hemoglobin 11.3 g/dL (14.0-18.0); Mean Corpuscular HGB Conc 32.2 g/dl (32-36); Mean Corpuscular Hemoglobin 28.6 pg (26-34); Mean Corpuscular Volume 88.9 fl (80-100); Mean Platelet Volume 9.9 fl (7.4-10.4); Platelet Count Result 360 k/mm3 (150-375); Red Blood Count 3.95 M/mm3 (4.6-6.20); Red Cell Distribution Width 13.6 % (11.5-14.5); White Blood Count 9.3 K/mm3 (4.5-10.0)
[2025-02-15 06:50] LABS: Anion Gap 5 mmol/L (4-12); Blood Urea Nitrogen 12 mg/dL (9-20); Calcium 8.6 mg/dL (8.4-10.2); Carbon Dioxide 33 mmol/L (22-30); Chloride 100 mmol/L (98-107); Estimated CRCL calculation 66 ml/min; Estimated Glomerular Filt Rate > 60; Glucose 122 mg/dL (65-110); Sodium 138 mmol/L (137-145)
[2025-02-15 07:38] LABS: Glucose Point of Care 123 mg/dl (65-105)
[2025-02-15] MEDS: polyethylene glycoL 3350 17 GM POWD.PACK PO (08:43)
[2025-02-15] MEDS: SIMVASTATIN 20 MG TABLET PO (08:43)
[2025-02-15 09:30] LABS: Magnesium 1.8 mg/dL (1.6-2.3)
[2025-02-15] MEDS: oxyCODONE HCL (*CRX) 5 MG TAB IR PO (10:15)
[2025-02-15] MEDS: POTASSIUM CHLORIDE 20 MEQ ER TABLET 40 MEQ PO (10:15)
[2025-02-15 11:54] LABS: Glucose Point of Care 213 mg/dl (65-105)
[2025-02-15 12:27] LABS: Potassium 3.7 mmol/L (3.4-5.0)
--- NOTE | 2025-02-15 12:40 | P.DS_ITS ---
DS: Admitting Diagnosis Discharge Date 02/15/2025 Admitting Diagnosis Back pain DS: Discharge Diagnosis Discharge Diagnosis (1) Fracture, thoracic vertebra: Qualifiers: Encounter type: sequela Fracture morphology: unspecified fracture morphology Fracture type: closed Thoracic vertebra fracture level: unspecified thoracic vertebra Qualified Code(s): S22.009S - Unspecified fracture of unspecified thoracic vertebra, sequela Code(s): S22.009A - Unspecified fracture of unspecified thoracic vertebra, initial encounter for closed fracture Status: Acute (2) MADALYN (acute kidney injury): Code(s): N17.9 - Acute kidney failure, unspecified Status: Acute (3) Diabetes: Code(s): E11.9 - Type 2 diabetes mellitus without complications Status: Acute (4) Hypokalemia: Code(s): E87.6 - Hypokalemia Status: Acute (5) Starvation ketoacidosis: Code(s): T73.0XXA - Starvation, initial encounter; E87.29 - Other acidosis Status: Acute DS: Summary Hospital Course Hospital Course: ER work up showed WBC 16.1 anion gap 25, BUN 33, creatinine 1.31, blood sugar 280, A1c 11. Patient started on IV fluids. Respiratory panel negative. Chest X-Ray 02/11/25 07:17 IMPRESSION: 1. Small lung volumes. PT/OT. Creatinine improved to 0.82. Anion gap improved to 5 and WBC 9.3. Potassium improved to from 3.0 to 3.7 with supplementation. Patient discharged to [facility] for rehab. Status at Discharge Functional status at discharge: uses cane/walker Overall status at discharge: patient is not back to baseline Time Spent with Patient Time attestation: Total time spent providing and/or coordinating discharge services: Time spent: Greater than 30 minutes Exam Const: General: no acute distress and uncomfortable Resp: Effort & Inspection: normal respiratory effort Auscultation: clear to auscultation bilaterally Cardio: Rate: regular rate Rhythm: regular rhythm GI: GI Palp: Yes Soft to palpation Auscultation: normal bowel sounds Neuro: Other: TLSO brace and collar in place. Extrem: General: no pedal edema Psych: Mental Status: mental status grossly normal DS: Data Data Completed and Pending Labs on day of discharge: Labs from last 24 hours 02/15/25 02/15/25 02/15/25 12:15 11:22 07:30 WBC RBC Hgb Hct MCV MCH MCHC RDW Plt Count MPV Sodium Potassium 3.7 Chloride Carbon Dioxide Anion Gap BUN Creatinine Estim Creat Clear Calc Estimated GFR Glucose POC Capillary Glucose 213 H 123 H Calcium Magnesium 02/15/25 02/15/25 02/14/25 05:40 05:36 19:59 WBC 9.3 RBC 3.95 L Hgb 11.3 L Hct 35.1 L MCV 88.9 MCH 28.6 MCHC 32.2 RDW 13.6 Plt Count 360 MPV 9.9 Sodium 138 Potassium 3.0 L Chloride 100 Carbon Dioxide 33 H Anion Gap 5 BUN 12 Creatinine 0.82 Estim Creat Clear Calc 66 Estimated GFR > 60 Glucose 122 H POC Capillary Glucose 222 H Calcium 8.6 Magnesium 1.8 02/14/25 17:09 WBC RBC Hgb Hct MCV MCH MCHC RDW Plt Count MPV Sodium Potassium Chloride Carbon Dioxide Anion Gap BUN Creatinine Estim Creat Clear Calc Estimated GFR Glucose POC Capillary Glucose 183 H Calcium Magnesium Discharge Plan Discharge Attending physician on discharge: Deysi Francis Consulting providers: Gunjan Carmona Discharging Clinician: Lesly Otoole Anticipated Discharge Date/Time: 02/14/25 17:51 Patient Disposition: SNF Activity: as tolerated Diet: diabetic Discharge Instructions: * Please follow with PCP in one week. * Check your blood pressure and heart rate regularly and report to PCP. * Increase your oral intake. * PT/OT at [facility]. * Follow up with your orthopedic doctor. * Wear brace/ collar as directed. Thank you for entrusting [facility] with your healthcare! Patient Instructions: Dehydration (DC), Acute Kidney Injury (DC), Weakness (DC), Opioid Safety (DC) Patient Language: Monegasque Stand Alone Forms: General Discharge Information Follow-up/Referrals: Harms,Braulio Siddiqui M.D. [Primary Care Provider] - 1 Week Discharge Medications: New polyethylene glycol 3350 [Miralax] 17 gram Powder In Packet 17 g PO QAM Qty: 30 0RF sennosides-docusate sodium [Senokot-S] 8.6-50 mg Tablet 2 tab-cap PO HS Qty: 28 0RF oxycodone 5 mg Tablet 5 mg PO Q4H PRN (Reason: Pain Rated 7-10) Qty: 10 0RF acetaminophen 325 mg Tablet 650 mg PO Q4H PRN (Reason: Mild Pain (1-3) Or Fever) Qty: 30 0RF Continued metformin 1,000 mg tablet 1,000 mg PO BID gabapentin 300 mg capsule 300 mg PO DAILY Rx Instructions: takes in the evening insulin glargine-yfgn [Semglee(insulin glarg-yfgn)Pen] 100 unit/mL (3 mL) insulin pen 20 unit SUBCUT QPM (DME) Contour Next Test Strips Strip MISCELLANEOUS simvastatin 20 mg tablet 20 mg PO DAILY Date of admission: 02/11/25 06:13 Primary Care Provider: EmiBraulio Admitting Provider: Gunjan Carmona Attending physician on admission: Gunjan Carmona Condition: Stable Hospitalist MIPS Heart Failure (Exclusion) Patient has history of Heart Transplant or Left Ventricular Assistive Device?: N o IF YES, STOP HERE Heart Failure (Qualifier) Patient has current or prior documentation of LVEF less than or equal to 40%, or mod/servere depressed LVSF?: No IF NO, STOP HERE
[2025-02-15 13:58] VITALS: BP 172/74; PULSE 77; RESP 18; TEMP 36.1; O2SAT 98
== END 2025-02-15 14:07 | DRG 683 ==
LOC: ANHED 02-11 03:54 → ANH3MEDSUR 02-11 07:25
PROVIDERS: Nurse Practitioner Family; Admitting Provider Internal Medicine; Emergency Provider Physician Assistant; PCP Family Medicine; Visit Provider Nurse Practitioner Family
DX: N17.9 Acute kidney failure, unspecified (principal); E87.29 Other acidosis; E87.6 Hypokalemia; E11.9 Type 2 diabetes mellitus without complications; E78.5 Hyperlipidemia, unspecified; R26.2 Difficulty in walking, not elsewhere classified; W11.XXXD Fall on and from ladder, subsequent encounter; Z20.822 Contact with and (suspected) exposure to COVID-19; S22.009D Unspecified fracture of unspecified thoracic vertebra, subsequent encounter for fracture with routine healing; S22.41XD Multiple fractures of ribs, right side, subsequent encounter for fracture with routine healing; Z87.891 Personal history of nicotine dependence; Z79.4 Long term (current) use of insulin; Z78.9 Other specified health status
CPT/HCPCS: 36415; 71045; 80048; 80053; 81001; 82010; 82803; 82948; 83036; 83735; 84132; 85025; 85027; 87637; 96361; 96374; 97110; 97116; 97161; 97165; 97530; 97535; 99285; A9270; J1650; J1815; J7030; J7120